=== PATIENT | male | born 1955 ===

== ENCOUNTER 2025-09-13 11:01 | Emergency (ER) | payer BC, SELFPAY ==
--- OUTSIDE RECORDS SUMMARY | 2016-04-08 | XMS_ITS | Encounter Summary ---
Author Organization [facility] Address [address] [facility] [address] [place] [address] Phone Care Team Providers Care Caltrans Equipment Operator Name Role Phone Je Ragsdale MD Primary Care Provider + Reason for Visit * MRI/CAT Scan - Closed Specialty Diagnoses / Procedures Referred By Briana jules Referred To Contact Radiology Procedures MRI Brain Outside (No Interpretation) Lauren Lea MD, PhD [address] [place] [address] Phone: tel: fax: mailto:[email or web address] Referral ID Status Reason Start Date Expiration Date Visits Re quested Visits Authorized [id number] Closed 04/08/2016 04/08/2017 1 1 Encounter Details Date Type Department Care Team (Late st Contact Info) Description 04/08/2016 Hospital Encounter [facility] [address] [place] [address] Lauren Lea MD, PhD [address] [place] [address] [email or web address] Social History Tobacco Use Types Packs/Day Years Used Date Smoking Tobacco: Never Smokeless Tobacco: Never Alcohol Use Standard Drinks/Week Comments No 0 (1 standard drink = 0.6 oz pur e alcohol) Child or Family Care Answer Date Record ed Do you have problems with on e of the following making it difficult for you to work, study, or receive health care? No 09/12/2025 Education Answer Date Recorded Are you interested in more education? Not on alexsandra e 04/17/2024 Are you concerned about learning? Not on file 04/17/2024 No 04/17/2024 No 04/17/2024 Food Answer Date Recorded Within the past 6 months we worried whether our food would run out before we got money to buy more. Never True 09/12/2025 Within the past 6 months the food we bought just didn't last and we didn't have enough money to get more. Never True Residential Stability Answer Date Recor ded What is your housing situation today? I have zuleyma ricardo 09/12/2025 How many times have you move d in the past 12 months? Zero (I did not move) 09/12/2025 Paying for Meds Answer Date Recorded Do you have trouble paying for medicines? No 09/12/2025 Paying Utility Bills Answer Date Record ed Do you have trouble paying your heating or elect ricity bill? No 09/12/2025 Transportation Answer Date Recorded Has the lack of transportati on kept you from medical appointments or from getting medications? No 09/12/2025 Unemployment Answer Date Recorded Are you currently unemployed or working on a part-time or temporary basis, and looking for work? No 04/15/2022 Digital Access Answer Date Recorded No 09/12/2025 Yes 09/12/2025 Do you have reliable internet access at home? Ye s 09/12/2025 Do you have a device (e.g., phone, tablet, computer) with a working camera? Yes 09/12/2025 Intimate Partner Violence Answer Date R ecorded Denied Basic Needs Not on file 09/12/2025 In the past 12 months have y ou been in a relationship with a person who hurts, threatens, or tries to control you? No 09/12/2025 Worried food would run out Not on file 09/12 In the past 12 months have y ou been in a relationship with a person who hurts, threatens, or tries to control you? 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 Not on file Not on file documented as of this encounter Plan of Treatment Upcoming Encounters Date Type Department Care Team (Late st Contact Info) Description 06/29/2025 Procedure Pass [address] [address] 06/29/2025 Procedure Pass [address] [address] 09/29/2025 3:15 PM EST Appointment [address] [address] Vinayak Reardon DO 30 [place] [address] [email or web address] 10/13/2025 1:30 PM EST Office Visit [facility], [facility] [place] [facility] [place] [address] [address] Lauren Lea MD, PhD [address] [place] [address] [email or web address] 09/14/2026 11:15 AM EDT Office Visit [facility] [address] [address] Richar Ellis MD 22 [facility] [address] [place], [place] [phone] [email or web address] documented as of this encounter Procedures Procedure Name Priority Date/Time Associated Diagnosis Comments MRI BRAIN OUTSIDE (NO INTERPRETATION) Routine 04/08/2016 12:00 AM EDT documented in this encounter Results * MRI Brain Outside (No Interpretation) (04/08/2016 12:00 AM EDT) Narrative [facility] IMG INTERFACES - 04/08/2016 3:14 PM EDT This study is for PACS storage only and not for interpretation. Procedure Note SYSTEMGENERATED, DOCUMENTATION - 04/08/2016 This study is for PACS storage only and not for interpretation. us Lauren Lea MD, PhD IMG OUTSIDE IMAGING W/O UT INTERPRETATION Final Result [facility] IMG INTERFACES documented in this encounter Visit Diagnoses Not on filedocumented in this encounter Care Teams Caltrans Equipment Operator Relationship Specialty Start Date End Date Je Ragsdale MD [address] [place] [address] [address] [place] [address] [email or web address] PCP - General 05/24/1409/27/20 documented as of this encounter Additional Source Comments The information contained in this document represents components of the legal health record. It is not the complete legal health record.[facility]
--- OUTSIDE RECORDS SUMMARY | 2016-04-08 00:15 | XMS_ITS | Encounter Summary ---
Author Organization [facility] Address [address] [facility] [address] [place] [address] Phone Care Team Providers Care Combination Welder Name Role Phone Je Ragsdale MD Primary Care Provider + Reason for Visit * MRI/CAT Scan - Closed Specialty Diagnoses / Procedures Referred By Briana jules Referred To Contact Radiology Procedures CT Chest Outside (No Interpretation) Lauren Lea MD, PhD [address] [place] [address] Phone: tel: fax: mailto:[email or web address] Referral ID Status Reason Start Date Expiration Date Visits Re quested Visits Authorized [id number] Closed 04/08/2016 04/08/2017 1 1 Encounter Details Date Type Department Care Team (Late st Contact Info) Description 04/08/2016 12:15 AM EDT Hospital Encounter [facility] [address] [place] [address] Lauren Lea MD, PhD [address] [place] [address] [email or web address] Social History Tobacco Use Types Packs/Day Years [...] your housing situation today? I have zuleyma sing 09/12/2025 How many times have you move [...] st Contact Info) Description 06/29/2025 Procedure Pass [address] [address] 06/29/2025 Procedure Pass [address] [address] 09/29/2025 3:15 PM EST Appointment [address] [address] Vinayak Reardon, 30 [place] [address] [email or web address] 10/13/2025 1:30 PM EST Office Visit [facility], [facility] [place] [facility] [place] [address] [address] Lauren Lea MD, PhD [address] [place] [address] [email or web address] 09/14/2026 11:15 AM EDT Office Visit [facility] Medical [address] [phone] Richar [place] MD 22 [facility] [address] [place], [place] [id number] [email or web address] documented as of this encounter Procedures Procedure Name Priority Date/Time Associated Diagnosis Comments CT CHEST OUTSIDE (NO INTERPRETATION) Routine 04/08/2016 12:15 AM EDT documented in this encounter Results * CT Chest Outside (No Interpretation) (04/08/2016 12:15 AM EDT) Narrative [facility] IMG INTERFACES - 04/08/2016 3:15 PM EDT This study is for PACS storage only and not for interpretation. Procedure Note SYSTEMGENERATED, DOCUMENTATION - 04/08/2016 This study is for PACS storage only and not for interpretation. us Lauren Lea MD, PhD IMG OUTSIDE IMAGING W/O UT INTERPRETATION Final Result [facility] IMG INTERFACES documented in this encounter Visit Diagnoses Not on filedocumented in this encounter Care Teams Combination Welder Relationship Specialty Start Date End Date Je Ragsdale MD [address] [place] [address] [address] [place] [address] [email or web address] state [email or web address] memorial hospital PCP - General 05/24/1409/27/20 documented as of this encounter Additional Source Comments The information contained in this document represents components of the legal health record. It is not the complete legal health record.[facility]
--- OUTSIDE RECORDS SUMMARY | 2016-08-02 | XMS_ITS | Encounter Summary ---
Author Organization [facility] Address [address] [facility] [address] [place] [address] Phone Care Team Providers Care Party Plan Salesperson Name Role Phone Je Ragsdale MD Primary Care Provider + Lauren Lea MD, PhD Unavailable [phone] Reason for Visit * MRI/CAT Scan - Closed Specialty Diagnoses / Procedures Referred By Contac t Referred To Contact Radiology Procedures MRI Brain Outside (No Interpretation) Lauren Lea MD, PhD [address] [place] [address] Phone: tel: fax: mailto:[email or web address] Referral ID Status Reason Start Date Expiration Date Visits Re quested Visits Authorized [id number] Closed 08/06/2016 08/06/2017 1 1 Encounter Details Date Type Department Care Team (Late st Contact Info) Description 08/02/2016 Hospital Encounter [facility] [address] [place] [address] Lauren Lea MD, PhD [address] [place] [address] Selena@[email or web address] Social History Tobacco Use Types Packs/Day [...] st Contact Info) Description 06/29/2025 Procedure Pass [address] [address] 06/29/2025 Procedure Pass [address] [address] 09/29/2025 3:15 PM EST Appointment [address] [address] Vinayak Reardon, 30 [place] [address] [email or web address] 10/13/2025 1:30 PM EST [facility], [facility] [place] [facility] [place] [address] [address] Lauren Lea MD, PhD [address] [place] [address] [place] [address] Selena@[email or web address] 09/14/2026 11:15 AM EDT Office Visit [facility] [address] [place] [address] Richar [place] MD 22 [facility] [address] [place] [address] [email or web address] documented as of this encounter Procedures Procedure Name Priority Date/Time Associated Diagnosis Comments MRI BRAIN OUTSIDE (NO INTERPRETATION) Routine 08/02/2016 12:00 AM EDT documented in this encounter Results * MRI Brain Outside (No Interpretation) (08/02/2016 12:00 AM EDT) Narrative [facility] IMG INTERFACES - 08/06/2016 3:00 PM EDT This study is for PACS storage only and not for interpretation. Procedure Note SYSTEMGENERATED, DOCUMENTATION - 08/06/2016 This study is for PACS storage only and not for interpretation. Lauren Lea MD, PhD IMG OUTSIDE IMAGING W/O UT INTERPRETATION Final Result [facility] IMG INTERFACES documented in this encounter Visit Diagnoses Not on filedocumented in this encounter Care Teams Party Plan Salesperson Relationship Specialty Start Date End Date Je Ragsdale MD [address] [place] [address] 2[address] [place] [address] [email or web address] PCP - General 05/24/1409/27/20 Lauren Lea MD, PhD [address] [place] [address] [place] [address] [email or web address] Primary Oncologist Medical Oncology 06/17/16 documented as of this encounter Additional Source Comments The information contained in this document represents components of the legal health record. It is not the complete legal health record.[facility]
--- OUTSIDE RECORDS SUMMARY | 2016-08-02 00:15 | XMS_ITS | Encounter Summary ---
Author Organization [facility] Address [address] [address] Phone Care Team Providers Care Concrete Pipe Maker Name Role Phone Je Ragsdale MD Primary Care Provider + Lauren Lea MD, PhD Unavailable [phone] Reason for Visit * MRI/CAT Scan - Closed Specialty Diagnoses / Procedures Referred By Contac t Referred To Contact Radiology Procedures CT Chest Outside (No Interpretation) Lauren Lea MD, PhD [address] [place] [address] Phone: tel: fax: mailto:[email or web address] Referral ID Status Reason Start Date Expiration Date Visits Re quested Visits Authorized [id number] Closed 08/06/2016 08/06/2017 1 1 Encounter Details Date Type Department Care Team (Late st Contact Info) Description 08/02/2016 12:15 AM EDT Hospital Encounter [facility] [address] [place] [address] Lauren Lea MD, PhD [address] [place] [address] Selena@[email or web address] Social History Tobacco Use Types Packs/Day Years [...] st Contact Info) Description 06/29/2025 Procedure Pass [address] [address] 06/29/2025 Procedure Pass [address] [address] 09/29/2025 3:15 PM EST Appointment [address] [address] Vinayak Reardon, 30 [place] [address] [email or web address] 10/13/2025 1:30 PM EST Office Visit [facility], [facility] [place] at [address] [address] Lauren Lea MD, PhD [address] [place] [address] [place] [address] Selena@[email or web address] 09/14/2026 11:15 AM EDT Office Visit [facility] Medical [address] [place] [address] Richar [place] MD 22 [facility] [address] [place] [address] documented as of this encounter Procedures Procedure Name Priority Date/Time Associated Diagnosis Comments CT CHEST OUTSIDE (NO INTERPRETATION) Routine 08/02/2016 12:15 AM EDT documented in this encounter Results * CT Chest Outside (No Interpretation) (08/02/2016 12:15 AM EDT) Narrative [facility] IMG INTERFACES - 08/06/2016 3:02 PM EDT This study is for PACS storage only and not for interpretation. Procedure Note SYSTEMGENERATED, DOCUMENTATION - 08/06/2016 This study is for PACS storage only and not for interpretation. us Lauren Lea MD, PhD IMG OUTSIDE IMAGING W/O UT INTERPRETATION Final Result Performing Organization Address City/State/[facility] Co de Phone Number [facility]G INTERFACES documented in this encounter Visit Diagnoses Not on filedocumented in this encounter Care Teams Concrete Pipe Maker Relationship Specialty Start Date End Date Je Ragsdale MD [address] [place] [address] 2[address] [place] [address] [email or web address] PCP - General 05/24/1409/27/20 Lauren eLa MD, PhD [address] [place] [address] [place] [address] [email or web address] Primary Oncologist Medical Oncology 06/17/16 documented as of this encounter Additional Source Comments The information contained in this document represents components of the legal health record. It is not the complete legal health record.[facility]
--- OUTSIDE RECORDS SUMMARY | 2016-11-29 01:30 | XMS_ITS | Encounter Summary ---
Author Organization [facility] Address [address] [facility] [address] [place] [address] Phone Care Team Providers Care Cathode Maker Name Role Phone Je Ragsdale MD Primary Care Provider + Lauren Lea MD, PhD Unavailable [phone] Reason for Visit * MRI/CAT Scan - Closed Specialty Diagnoses / Procedures Referred By Contac t Referred To Contact Procedures CT Chest Outside (No Interpretation) Lauren Lea MD, PhD [address] [place] [address] Phone: tel: fax: mailto:[email or web address] Referral ID Status Reason Start Date Expiration Date Visits Re quested Visits Authorized [id number] Closed 04/16/2017 04/16/2018 1 1 Encounter Details Date Type Department Care Team (Late st Contact Info) Description 11/29/2016 12:30 AM EST Hospital Encounter [facility] Imaging [address] [place] [address] Lauren Lea MD, PhD [address] [place] [address] [email or web address] Social History Tobacco Use Types Packs/Day Years [...] st Contact Info) Description 06/29/2025 Procedure Pass [address] [address] 06/29/2025 Procedure Pass [address] [address] 09/29/2025 3:15 PM EST Appointment [address] [address] Vinayak Reardon, 30 [place] [address] [email or web address] 10/13/2025 1:30 PM EST Office Visit [facility], [facility] Cancer [place] at [address] [address] Lauren Lea MD, PhD [address] [place] [address] [place] [address] Selena@[email or web address] 09/14/2026 11:15 AM EDT Office Visit [address] [place] [address] Richar [place] MD 22 [facility] [address] [place] [address] documented as of this encounter Procedures Procedure Name Priority Date/Time Associated Diagnosis Comments CT CHEST OUTSIDE (NO INTERPRETATION) Routine 11/29/2016 12:30 AM EST documented in this encounter Results * CT Chest Outside (No Interpretation) (11/29/2016 12:30 AM EST) Narrative [facility] IMG INTERFACES - 04/16/2017 11:01 AM EDT This study is for PACS storage only and not for interpretation. us Lauren Lea MD, PhD IMG OUTSIDE IMAGING W/O UT INTERPRETATION Final Result [facility] IMG INTERFACES documented in this encounter Visit Diagnoses Not on filedocumented in this encounter Care Teams Cathode Maker Relationship Specialty Start Date End Date Je Ragsdale MD [address] [place] [address] [address] [place] [address] [email or web address] PCP - General 05/24/1409/27/20 Lauren Lea MD, PhD [address] [place] [address] [address] Selena@[email or web address] Primary Oncologist Medical Oncology 06/17/16 documented as of this encounter Additional Source Comments The information contained in this document represents components of the legal health record. It is not the complete legal health record.[facility]
--- OUTSIDE RECORDS SUMMARY | 2016-11-29 01:45 | XMS_ITS | Encounter Summary ---
Author Organization [facility] Address [address] [facility] [address] [place] [address] Phone Care Team Providers Care Mud Tank Operator Name Role Phone Je Ragsdale MD Primary Care Provider + Lauren Lea MD, PhD Unavailable [phone] Reason for Visit * MRI/CAT Scan - Closed Specialty Diagnoses / Procedures Referred By Contac t Referred To Contact Procedures MRI Brain Outside (No Interpretation) Lauren Lea MD, PhD [address] [place] [address] Phone: tel: fax: mailto:[email or web address] Referral ID Status Reason Start Date Expiration Date Visits Re quested Visits Authorized [id number] Closed 04/16/2017 04/16/2018 1 1 Encounter Details Date Type Department Care Team (Late st Contact Info) Description 11/29/2016 12:45 AM EST Hospital Encounter [facility] Imaging [address] [place] [address] Lauren Lea MD, PhD [address] [place] [phone] [email or web address] Social History Tobacco Use Types [...] st Contact Info) Description 06/29/20[address] [address] 06/29/2025 Procedure Pass [address] [address] 09/29/2025 3:15 PM EST Appointment [address] [address] Vinayak Reardon, 30 [place] [address] [email or web address] 10/13/2025 1:30 PM EST Office Visit [facility], [facility] [place] [facility] [place] [address] [address] Lauren Lea MD, PhD [address] [place] [address] [place] [address] Selena@[email or web address] 09/14/2026 11:15 AM EDT Office Visit [address] [place] [address] Richar [place] MD 22 [facility] [address] [place] [address] documented as of this encounter Procedures Procedure Name Priority Date/Time Associated Diagnosis Comments MRI BRAIN OUTSIDE (NO INTERPRETATION) Routine 11/29/2016 12:45 AM EST documented in this encounter Results * MRI Brain Outside (No Interpretation) (11/29/2016 12:45 AM EST) Narrative [facility] IMG INTERFACES - 04/16/2017 11:03 AM EDT This study is for PACS storage only and not for interpretation. us Lauren Lea MD, PhD IMG OUTSIDE IMAGING W/O UT INTERPRETATION Final Result [facility] IMG INTERFACES documented in this encounter Visit Diagnoses Not on filedocumented in this encounter Care Teams Mud Tank Operator Relationship Specialty Start Date End Date Je Ragsdale MD [address] [place] [address] [address] [place] [address] [email or web address] PCP - General 05/24/1409/27/20 Lauren Lea MD, PhD [address] [place] [address] [address] [email or web address] Primary Oncologist Medical Oncology 06/17/16 documented as of this encounter Additional Source Comments The information contained in this document represents components of the legal health record. It is not the complete legal health record.[facility]
--- OUTSIDE RECORDS SUMMARY | 2025-09-12 11:30 | XMS_ITS | Encounter Summary ---
Author Organization [facility] Address [address] [place] [address] Phone Care Team Providers Care Fur Dry Cleaner Hand Name Role Phone Lauren Lea MD, PhD Unavailable [phone] Richar Ellis MD Primary Care Provider [phone] Vinayak Reardon DO Unavailable [phone] Richar Ellis MD Unavailable [phone] Reason for Visit * Reason Comments Annual Exam Physical exam Encounter Details Date Type Department Care Team (Late st Contact Info) Description 09/12/2025 11:30 AM EDT Office Visit [facility] [address] [place] [address] Richar Ellis MD [address] [facility], [address] [place] [address] [email or web address] Annual physical exam (Primary Dx); Colon cancer screening; Non-small cell lung cancer, unspecified laterality; Benign prostatic hyperplasia with nocturia; Bilateral leg edema; Loss of libido Social History Tobacco Use Types Packs/Day Years [...] on file documented as of this encounter Last Filed Vital Signs Vital Sign Reading Time Taken Comments Blood Pressure 108/50 09/12/2025 11:10 AM EDT Pulse 59 09/12/2025 11:10 AM EDT Temperature 36.1 C (97 F) 09/12/2025 11:10 AM EDT Respiratory Rate - - Oxygen Saturation 98% 09/12/2025 11: 10 AM EDT Inhaled Oxygen Concentration - - Weight 75.2 kg (165 lb 12.8 oz) 025 11:10 AM EDT Height 167.6 cm (5' 5.98 ) 09/12/2025 1 1:10 AM EDT Body Mass Index 26.77 09/12/2025 11:10 AM EDT documented in this encounter Progress Notes * Richar Ellis MD - 09/12/2025 11:30 AM EDT Chief Complaint: Annual Exam (Physical exam ) Subjective: Social History Social History Narrative Lives with Maye and 4 daughters - 35yo daughter, 18 yo and 12. 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 Grew up in [place] and [place]. He has done a lot of work with populations, spent time especially on the [facility]. Dtr got her PhD in computer science a t [employer]. research Never smoker No etoh Yearly physical, last visit with me in March for worsening prostatism, polyuria. Prescribed tamsulosin. Normal labs including PSA 0.87, A1c 4.8. History of metastatic lung cancer initially diagnosed 2015, right lobectomy, managed at [facility] Dr. Lea, and followed by Dr. Reardon, Imaging in June, brain MRI negative for mets Also history of hypertension, depression, lifelong anticoagulation due to previous pulm embolism. Labs in April, LDL 80, HDL 49, TG 97 Cologuard 2021, 3-year recall: Due now. I reviewed labs to the patient from [facility] without response Rusty Thapa, is a 70 y.o. male reports doing well. - reports a burning sensation L side of his pectoral area off/on for around 6 months, vlad after spicy meals. No exertional sx. No neck/arm pains. Hasn't tried antacids. 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 Re COLO, he has avoided scheduling to needing his alecenza bid. Will do cologuard. Exercise- elliptical and santos chi History of Present Illness VITALS: BP 108/50 (BP Location: Right arm, Patient Position: Sitting, Cuff Size: Medium) Pulse (!) 59 Temp 36.1 ??C (97 ??F) (Temporal) Ht 167.6 cm (5' 5.98 ) Wt 75.2 kg (165 lb 12.8 oz) SpO2 98% BMI 26.77 kg/m?? Alert cheerful, no acute distress Well-groomed, vital signs reviewed Cranial nerves symmetric, oropharynx clear and moist TM nl bilaterally Neck without lymphadenopathy, no jugular venous distention, no carotid bruits Cardiovascular regular rate and rhythm no murmurs rubs or gallops Lungs are clear to auscultation Abdomen is soft, nontender nondistended with positive bowel sounds. Liver and spleen not palpable. No masses : Normal penis, testes symmetric without masses, no inguinal hernia, no lymphadenopathy Extremities without cyanosis clubbing, UNCHANGED 2+ PITTING EDEMA no synovitis or joint deformities. Neurologic, cranial nerves symmetric, normal gait, strength symmetric. No diminished sensation. Skin, no rash, no jaundice, no concerning moles. Physical Exam Assessment/Plan: 1. Annual physical exam (Primary) Comments: flu today rec'd RSV vaccine Orders: - Influenza Vaccine (65yo up) High-Dose Trivalent Preservative Free IM - COLOGUARD (OrthoFi) 2. Colon cancer screening - COLOGUARD (OrthoFi) 3. Non-small cell lung cancer, unspecified laterality Overview: Initially diagnosed in 1995 at [facility], recurred in 2012 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 He was put on a research compassionate treatment with alectinib, now followed by Dr. Reardon. Doing remarkably well overall 4. Benign prostatic hyperplasia with nocturia Overview: Rx'd flomax, check PSA, A1c August 2025: sx well controlled on flomax 5. Bilateral leg edema Overview: Dt meds [Alectimib for lung ca] 6. Loss of libido Overview: Check testosterone Orders: - Testosterone, total and free Assessment & Plan Please consider using the newly developed race-neutral PREVENT score to determine CVD risk: https:// professional.heart.org/en/djgtnqburn-olt-jnpsxkavms/prevent-calculator The 10-year ASCVD risk score ([place] ISAACS, et al., 2019) is: 12.9% Values used to calculate the score: Age: 70 years Sex: Male Is Non- : No Diabetic: No Tobacco smoker: No Systolic Blood Pressure: 108 mmHg Is BP treated: No HDL Cholesterol: 49 mg/dL Total Cholesterol: 148 mg/dL No results found for any visits on 09/12/25. There are no Patient Instructions on file for this visit. Future Appointments Date Time Provider Department Center 09/29/2025 3:15 PM [facility] Main 10/13/2025 1:30 PM Lauren Lea MD, PhD DFTOP[facility] None Return in about 1 year (around 09/12/2026) for Annual physical. Richar Ellis MD 09/12/25. 11:48 AM Orders Placed This Encounter Procedures Influenza Vaccine (65yo up) High-Dose Trivalent Preservative Free IM COLOGUARD (OrthoFi) Testosterone, total and free Standing Status: Future Expected Date: 09/12/2025 Expiration Date: 09/12/2026 Patient expresses understanding and agrees with plan. All questions were answered satisfactorily. Patient agrees to call with questions or concerns should the need arise This dictation was prepared using [employer] senior trial attorney software. Answers submitted by the patient for this visit: From Your Doctor: Pre-visit Questions (Submitted on 09/12/2025) Unexpected weight change: No Changes in hearing: No Unexpected vision change: No Cough: No Shortness of breath: No Chest pain: Yes Palpitations: No Abdominal pain: No Blood in stool: No Constipation: No Diarrhea: No Problems with urination: No Erectile dysfunction: No Blood in urine: No Joint pain: No Persistent rash: No Dizziness: Yes Headaches: No Changes in memory: No documented in this encounter Plan of Treatment Upcoming Encounters Date Type Department Care Team (Late st Contact Info) Description 06/29/2025 Procedure Pass [facility] Ct Scan [address] [address] 06/29/2025 Procedure Pass [address] [address] 09/29/2025 3:15 PM EST Appointment [address] [address] Vinayak Reardon, [address] [place] [address] [email or web address] 10/13/2025 1:30 PM EST Office Visit [facility], [facility] [place] [facility] [place] [address] [address] Lauren Lea MD, PhD [address] [place] [address] [email or web address] 09/14/2026 11:15 AM EDT Office Visit [address] [address] Richar Ellis MD [address] [facility], [address] [place] [address] [email or web address] Scheduled Orders Name Type Priority Associated Diagnoses Orde r Schedule COLOGUARD ([employer]) Lab Routine Colon cancer screening Annual physical exam Ordered: 09/12/2025 Testosterone, total and free Lab Routine Loss of libido Expected: 09/12/2025, Expires: 09/12/2026 documented as of this encounter Visit Diagnoses Diagnosis Annual physical exam- Primary Routine general medical examination at a health care facility Colon cancer screening Special screening for malignant neoplasms, colon Non-small cell lung cancer, unspecified laterality Benign prostatic hyperplasia with nocturia Bilateral leg edema Edema Loss of libido Decreased libido documented in this encounter Additional Health Concerns Assessment Noted Time PHQ-9 Depression Total Score: 13 025 10:22 AM EDT PHQ-2 Depression Total Score: 3 09/12/20 25 10:22 AM EDT documented as of this encounter Care Teams Fur Dry Cleaner Hand Relationship Specialty Start Date End Date Richar Ellis MD [address] [place] [address], [address] [place] [address] [email or web address] PCP - General Internal Medicine 09/28/20 Lauren Lea MD, PhD [address] [place] [address] [email or web address] Primary Oncologist Medical Oncology 06/17/16 Vinayak Reardon DO [address] [place] [address] [email or web address] Primary Oncologist Hematology and Oncology 06/26/22 Richar Ellis MD [address] [place] [address], [address] [place] [address] [email or web address] Insurance Assigned Provider 02/28/24 documented as of this encounter Additional Source Comments The information contained in this document represents components of the legal health record. It is not the complete legal health record.[facility]
[2025-09-13] VITALS (7 sets, daily range): BP systolic 109–119; BP diastolic 47–76; PULSE 51–76; RESP 18; TEMP 36.6–36.7; O2SAT 97–99; BMI 24.5
--- NOTE | 2025-09-13 11:02 | ED_ITS ---
HPI - General Adult General Chief complaint: General Medical Stated complaint: LIGHTHEADED,FLU SHOT T-1,H/O STAGE 4 LUNG CA Time Seen by Provider: 09/13/25 11:01 Source: patient and EMS Mode of arrival: EMS Limitations: no limitations History of Present Illness ED Provider: Timothy Manriquez PA-C HPI narrative: 70 yo female with history of stage IV lung cancer with metastasis to the brain on oral chemo who presents to the ER via EMS for evaluation of a near syncope. 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 He states he got the influenza vaccine yesterday and started to fell unwell last night with chills and generalized weakness. This morning woke up feeling the same and went to work. He states he has had this reaction in the past after vaccinations and has history of vasovagal syncope and presyncope several times in the past. He states he will pass out if he does not put his head between his legs or lay down. Patient reports feeling improved now. He denies associated chest pain, SOB, vision changes, focal deficits, LOC, N/V/D or abdominal pain. HR 50s and SBP 110s for EMS which are his baseline per his report. MD complaint: near syncope Onset (ago): minute(s) Pain Consistency: now resolved Relieving factors: rest Associated symptoms: fever/chills, malaise and weakness Treatments prior to arrival: none Related Data Allergies Allergy/AdvReac Type Severity Reaction Status Date / Time cantaloupe Allergy Unknown Verified 09/13/25 11:18 watermelon Allergy Unknown Verified 09/13/25 11:18 Review of Systems 2 Review of Systems: Yes all other systems are reviewed and are negative [facility] Social History Social History Smoked in Last 30 Days: No Use of substances other than those prescribed or required for medical reasons: No Advance Directives: No Advance Directives Information Provided: Yes Do you have a plan to hurt others: No Plan Physical Exam ED Exam Exam: Appearance: Alert. Oriented X3. No acute distress. Head: normocephalic, atraumatic. Eyes: Pupils equal, round and reactive to light. ENT: Pharynx normal. No tonsillar swelling or exudate. Neck: Normal inspection. no JVD CVS: bradycardic, HR 50s, regular rhythm. Pulses normal. Respiratory: No respiratory distress. Breath sounds normal. Abdomen: Soft and nontender. +BS x4 Skin: Skin warm and dry. Normal skin color. Normal skin turgor. No rashes. Extremities: 1+ bilateral lower extremity edema, nonpitting. No joint swelling. Neuro/psych: Oriented X 3. No motor deficit. No sensory deficit. CN II-XII intact. Normal speech and cognition. Vital Signs: Vital Signs - 24 hr 09/13/25 11:12 09/13/25 11:58 09/13/25 11:59 Temperature 98.1 F Pulse Rate 53 51 54 Respiratory Rate 18 Blood Pressure 119/55 L 118/53 L 109/51 L Pulse Oximetry 99 Oxygen Delivery Method Room Air 09/13/25 12:00 Temperature Pulse Rate 55 Respiratory Rate Blood Pressure 110/47 L Pulse Oximetry Oxygen Delivery Method BMI result Body Mass Index 24.5 Medical Decision Making Medical Decision Making [facility] Narrative: 70 yo male with history of stage IV lung cancer with brain metastasis status post radiation and currently on oral chemotherapy who presents to the ER for evaluation of a presyncopal episode while at work today. Patient reports many episodes similar in nature, commonly occurs after getting vaccinations are when he is ill. He reports after getting the flu shot yesterday he is having some body aches and generalized weakness. No focality on exam. Physical exam is unremarkable. He is bradycardic which she reports is his baseline. Orthostatic vital signs here are negative. He is feeling back to normal. Labs show some anemia with hemoglobin of 9, mild thrombocytopenia with platelets in the 150s. No baseline to compare. He reports his blood counts were closely monitored by his oncologist. He is up ambulating around in the room and is feeling much better. At this time comfortable discharge home with outpatient follow-up. Return precautions were discussed and patient agrees with plan Differential Diagnosis Differential Diagnoses: The differential diagnosis associated with the presentation includes vasovagal response, orthostatic hypotension, dehydration, chemo side effect, anemia, cardiac arrhythmia, pe Admission/Observation Consideration of admission/observation: Escalation of care including admission/observation considered Lab Data [facility] Lab Attestation statement: I reviewed the patient's lab results. As above 09/13/25 11:46 09/13/25 11:46 Labs: Lab Results 09/13/25 Range/Units 11:46 WBC 4.8 (4.8-10.8) X10*3/uL RBC 2.97 L (4.60-5.80) X10*6/uL Hgb 9.1 L (14.0-18.0) g/dl Hct 27.1 L (42.0-52.0) % MCV 91.2 (80.0-98.0) fL MCH 30.6 (27.0-33.0) pg MCHC 33.6 (31.0-36.0) g/dl RDW 17.0 H (11.0-16.0) % Plt Count 150 L (160-400) X10*3/uL MPV 11.9 (9.4-12.4) fL Immature Gran % (Auto) 0.8 H (0.0-0.4) % Neut % (Auto) 79.0 H (45-73) % Lymph % (Auto) 9.1 L (20-40) % [place] % (Auto) 10.3 (2-11) % Eos % (Auto) 0.4 (0-4) % Baso % (Auto) 0.4 (0-2) % Lymph # (Auto) 0.4 L (1.2-4.9) X10*3/uL [place] # (Auto) 0.5 (0.1-1.2) X10*3/uL Eos # (Auto) 0.0 (0.0-0.4) X10*3/uL Baso # (Auto) 0.0 (0.0-0.2) X10*3/uL Abs Immat Gran (auto) 0.04 H (0.00-0.03) X10*3/uL Absolute Neuts (auto) 3.8 (2.0-8.3) x10*3/uL Absolute Nucleated RBC 0.000 (0.0-0.012) X10*3/uL Nucleated RBC % (auto) 0.0 (0.0-0.2) /100WBC Sodium 142 (135-145) mmol/L Potassium 3.7 (3.3-5.1) mmol/L Chloride 105 (96-108) mmol/L Carbon Dioxide 29 (22-29) mmol/L Anion Gap 12 (12-20) BUN 24 H (9-16) mg/dL Creatinine 1.27 (0.5-1.4) mg/dL Estim Creat Clear Calc 51.6 Estimated GFR 56 Random Glucose 87 (60-115) mg/dL Calcium 8.3 L (8.4-10.2) mg/dL Troponin I High Sens < 2.7 (<3.5-35.0) ng/L Independent Interpretation I performed an independent interpretation of an: EKG Interpretation: EKG with sinus bradycardia, ventricular rate 51 beats per minute, no ST segment elevations or depressions. IN interval is 200 Independent Historian Clinical information obtained from an independent historian. History obtained from or confirmed by: EMS Chronic Conditions Patient?s care impacted by: Other (Stage IV lung cancer) Critical Care Time Critical Care Time Critical Care Time: No Discharge Plan Discharge Clinical Impression: Near syncope Patient Disposition: Home, Self-Care Instructions: Near Syncope (ED) Additional Instructions: your workup today was reassuring. you have some anemia and thrombocytopenia (borderline low platelets) that should be monitored by your oncologist rest and drink plenty of fluids today follow up with your doctor If you develop new or worsening symptoms call 911 or come back to the ER for further evaluation. Referrals: Richar Ellis MD [Primary Care Provider, Medical] Stand Alone Forms: Work/School Release Print Language: Bengali
--- NOTE | 2025-09-13 11:18 | ECG_ITS ---
Test Reason : PRESYNCOPE Blood Pressure : */* mmHG Vent. Rate : 51 BPM Atrial Rate : 51 BPM P-R Int : 200 ms QRS Dur : 84 ms QT Int : 414 ms P-R-T Axes : 68 54 57 degrees QTcB Int : 381 ms Poor data quality, interpretation may be adversely affected Sinus bradycardia Otherwise normal ECG When compared with ECG of 18-Sep-2002 19:35, Nonspecific T wave abnormality no longer evident in Inferior leads Referred By: Deb Manriquez Electronically Signed By: TOMAS MENDES MD
[2025-09-13 11:58] LABS: MANUAL DIFF FLAG NO
[2025-09-13 12:14] LABS: Anion Gap 12 (12-20); Blood Urea Nitrogen 24 mg/dL (9-16); Calcium 8.3 mg/dL (8.4-10.2); Carbon Dioxide 29 mmol/L (22-29); Chloride 105 mmol/L (96-108); Creatinine Clr Calc Pharmacy 51.6; Estimated Glomerular Filt Rate 56; Potassium 3.7 mmol/L (3.3-5.1); Sodium 142 mmol/L (135-145)
[2025-09-13 12:15] LABS: Hematocrit 27.1 % (42.0-52.0); Hemoglobin 9.1 g/dl (14.0-18.0); Imm Gran Abs Auto 0.04 X10*3/uL (0.00-0.03); Imm Gran Pct Auto 0.8 % (0.0-0.4); Lymphocytes Absolute Auto 0.4 X10*3/uL (1.2-4.9); Mean Corpuscular HGB Conc 33.6 g/dl (31.0-36.0); Mean Corpuscular Hemoglobin 30.6 pg (27.0-33.0); Mean Corpuscular Volume 91.2 fL (80.0-98.0); NRBC Abs Auto 0.000 X10*3/uL (0.0-0.012); NRBC Pct Auto 0.0 /100WBC (0.0-0.2); Platelet Count 150 X10*3/uL (160-400); Red Blood Count 2.97 X10*6/uL (4.60-5.80); White Blood Count 4.8 X10*3/uL (4.8-10.8)
[2025-09-13 12:28] LABS: Troponin-I High Sensitivity < 2.7 ng/L (<3.5-35.0)
--- OUTSIDE RECORDS SUMMARY | 2025-09-13 15:43 | XMS_ITS | Encounter Summary ---
Author Organization [facility] Address [address] [place] [address] Phone Care Team Providers Care Rn Diabetes Educator Name Role Phone Lauren Lea MD, PhD Unavailable Richar Ellis MD Primary Care Provider Angela Price WARE TESTER Unavailable [phone] Richar Ellis MD Unavailable [phone] Vinayak Reardon DO Unavailable [phone] Richar Ellis MD Unavailable [phone] Encounter Details Date Type Department Care Team (Late st Contact Info) Description 02/09/2023 Procedure Pass [facility], Ct Scan - [address] [address] Social History Tobacco Use Types Packs/Day Years Used Date Smoking Tobacco: Never Smokeless Tobacco: Never Alcohol Use Standard Drinks/Week Comments No 0 (1 standard drink = 0.6 oz pur e alcohol) Child or Family Care Answer Date Record ed Do you have problems with on e of the following making it difficult for you to work, study, or receive health care? No 04/15/2022 Education Answer Date Recorded Are you interested in help w ith more adult education (for example, completing high school, GED, job training, learning the [place]ronesian language, technical skills, or developing parenting skills)? No 04/15/2022 Food Answer Date Recorded Within the past 6 months we worried whether our food would run out before we got money to buy more. Never True 04/15/2022 Within the past 6 months the food we bought just didn't last and we didn't have enough money to get more. Never True Residential Stability Answer Date Recor ded What is your housing situation today? I have zuleyma sing 04/15/2022 How many times have you move d in the past 12 months? Zero (I did not move) 04/15/2022 Paying for Meds Answer Date Recorded Do you have trouble paying for medicines? No 04/15/2022 Paying Utility Bills Answer Date Record ed Do you have trouble paying your heating or elect ricity bill? No 04/15/2022 Transportation Answer Date Recorded Has the lack of transportati on kept you from medical appointments or from getting medications? No 04/15/2022 Unemployment Answer Date Recorded Are you currently unemployed or working on a part-time or temporary basis, and looking for work? No 04/15/2022 Sex and Gender Information Value Date Recorded [...] st Contact Info) Description 06/29/2025 Procedure Pass [address] [address] 06/29/2025 Procedure Pass [address] [address] 09/29/2025 3:15 PM EST Appointment [address] [address] Vinayak Reardon, [address] [place] [address] [email or web address] 10/13/2025 1:30 PM EST Office Visit [facility], [facility] at [address] [place] [address] Lauren Lea MD, PhD [address] [place] [phone] [email or web address] 09/14/2026 11:15 AM EDT Office Visit [address] [place] [address] Richar Ellis MD [address] [place] [address], [address] [place] [address] [email or web address] documented as of this encounter Visit Diagnoses Not on filedocumented in this encounter Additional Health Concerns Assessment Noted Time PHQ-2 Depression Total Score: 0 04/15/20 22 1:05 PM EDT documented as of this encounter Care Teams Rn Diabetes Educator Relationship Specialty Start Date End Date Richar Ellis MD [address] [place] [address], [address] [place] [address] [email or web address] PCP - General Internal Medicine 09/28/20 Lauren Lea MD, PhD [address] [place] [address] [email or web address] Primary Oncologist Medical Oncology 06/17/16 Angela Price, WARE TESTER [address] [place] [address] [email or web address] Nurse Practitioner Medical Oncology 01/19/21 06/21/25 Richar Ellis MD [address] [place] [address], [address] [place] [address] [email or web address] Insurance Assigned Provider 12/01/21 08/30/23 Vinayak Reardon DO [address] [place] [address] [email or web address] Primary Oncologist Hematology and Oncology 06/26/22 Richar Ellis MD [address] [place] [address], [address] [place] [address] [email or web address] Insurance Assigned Provider 02/28/24 documented as of this encounter Additional Source Comments The information contained in this document represents components of the legal health record. It is not the complete legal health record.[facility]
--- OUTSIDE RECORDS SUMMARY | 2025-09-13 15:43 | XMS_ITS | Encounter Summary ---
Author Organization [facility] Address [address] [facility] [address] [place] [address] Phone Care Team Providers Care Shellfish Processing Laborer Name Role Phone Lauren Lea MD, PhD Unavailable [phone] Richar Ellis MD Primary Care Provider [phone] Angela Price GEOLOGY SCIENTIST Unavailable [phone] Richar Ellis MD Unavailable [phone] Vinayak Reardon DO Unavailable [phone] Richar Ellis MD Unavailable [phone] Encounter Details Date Type Department Care Team (Late st Contact Info) Description 06/19/2023 Procedure Pass [address] [place] [address] Social History Tobacco Use Types Packs/Day Years Used Date Smoking Tobacco: Never Smokeless Tobacco: Never Alcohol Use Standard Drinks/Week Comments No 0 (1 standard drink = 0.6 oz pur e alcohol) Child or Family Care Answer Date Record ed Do you have problems with on e of the following making it difficult for you to work, study, or receive health care? No 06/13/2023 Education Answer Date Recorded Are you interested in help w ith more adult education (for example, completing high school, GED, job training, learning the Nigerien language, technical skills, or developing parenting skills)? No 04/15/2022 Food Answer Date Recorded Within the past 6 months we worried whether our food would run out before we got money to buy more. Never True 06/13/2023 Within the past 6 months the food we bought just didn't last and we didn't have enough money to get more. Never True Residential Stability Answer Date Recor ded What is your housing situation today? I have zuleyma sing 06/13/2023 How many times have you move d in the past 12 months? Zero (I did not move) 06/13/2023 Paying for Meds Answer Date Recorded Do you have trouble paying for medicines? No 06/13/2023 Paying Utility Bills Answer Date Record ed Do you have trouble paying your heating or elect ricity bill? No 06/13/2023 Transportation Answer Date Recorded Has the lack of transportati on kept you from medical appointments or from getting medications? No 06/13/2023 Unemployment Answer Date Recorded Are you currently unemployed or working on a part-time or temporary basis, and looking for work? No 04/15/2022 Digital Access Answer Date Recorded No 06/13/2023 Yes 06/13/2023 Do you have reliable internet access at home? Ye s 06/13/2023 Do you have a device (e.g., phone, tablet, computer) with a working camera? Yes 06/13/2023 Intimate Partner Violence Answer Date R ecorded Denied Basic Needs Not on file 06/13/2023 In the past 12 months have y ou been in a relationship with a person who hurts, threatens, or tries to control you? No 06/13/2023 Worried food would run out Not on file 06/13 In the past 12 months have y ou been in a relationship with a person who hurts, threatens, or tries to control you? No 06/13/2023 Sex and Gender Information Value Date Recorded [...] st Contact Info) Description 06/29/2025 Procedure Pass [facility], Ct Scan - [address] [address] 06/29/2025 Procedure Pass [facility] Ct Scan [address] [address] 09/29/2025 3:15 PM EST Appointment [address] [address] Vinayak Reardon, [address] [place] [address] [email or web address] 10/13/2025 1:30 PM EST Office Visit [facility], [facility] [place] [facility] [place] [address] [address] Lauren Lea MD, PhD [address] [place] [address] [email or web address] 09/14/2026 11:15 AM EDT Office Visit [address] [address] Richar Ellis MD [address] [place] [address], [address] [place] [address] [email or web address] documented as of this encounter Visit Diagnoses Not on filedocumented in this encounter Additional Health Concerns Assessment Noted Time PHQ-9 Depression Total Score: 12 023 4:09 PM EDT PHQ-2 Depression Total Score: 3 06/13/20 23 4:09 PM EDT documented as of this encounter Care Teams Shellfish Processing Laborer Relationship Specialty Start Date End Date Richar Ellis MD [address] [place] [address], [address] [place] [address] [id number] PCP - General Internal Medicine 09/28/20 Lauren Lea MD, PhD [address] [place] [address] [email or web address] Primary Oncologist Medical Oncology 06/17/16 Angela Price, GEOLOGY SCIENTIST [address] [place] [address] [email or web address] Nurse Practitioner Medical Oncology 01/19/21 06/21/25 Richar Ellis MD [address] [place] [address] [email or web address] Insurance Assigned Provider 12/01/21 08/30/23 Vianyak Reardon DO [address] [place] [address] [email or web address] Primary Oncologist Hematology and Oncology 06/26/22 Richar Ellis MD [address] [place] [address], [address] [address] [email or web address] Insurance Assigned Provider 02/28/24 documented as of this encounter Additional Source Comments The information contained in this document represents components of the legal health record. It is not the complete legal health record.[facility]
--- OUTSIDE RECORDS SUMMARY | 2025-09-13 15:43 | XMS_ITS | Encounter Summary ---
Author Organization [facility] Address [address] [place] [address] Phone Care Team Providers Care Bandage Wrapping Machine Operator Name Role Phone Lauren Lea MD, PhD Unavailable [phone] Richar Ellis MD Primary Care Provider Angela Price SUPERINTENDENT COMMISSARY Unavailable [phone] Richar Ellis MD Unavailable [phone] Vinayak Reardon DO Unavailable [phone] Richar Ellis MD Unavailable [phone] Encounter Details Date Type Department Care Team (Late st Contact Info) Description 02/09/2023 Procedure Pass [facility], Ct Scan - [address] [address] Social History Tobacco Use Types Packs/Day Years [...] high school, GED, job training, learning the [place] Island[place] language, technical skills, or developing parenting skills)? [...] st Contact Info) Description 06/29/2025 Procedure Pass [address] [address] 06/29/2025 Procedure Pass [address] [address] 09/29/2025 3:15 PM EST Appointment [address] [address] Vinayak Reardon, [address] [place] [address] [email or web address] 10/13/2025 1:30 PM EST Office Visit [facility], [facility] [place] at [address] [place] [address] Lauren Lea MD, PhD [address] [place] [address] [email or web address] 09/14/2026 11:15 AM EDT Office Visit [address] [place] [address] Richar Ellis MD [address] [place] [address], [address] [place] [address] [email or web address] documented as of this encounter Visit Diagnoses Not on filedocumented in this encounter Additional Health Concerns Assessment Noted Time PHQ-2 Depression Total Score: 0 04/15/20 22 1:05 PM EDT documented as of this encounter Care Teams Bandage Wrapping Machine Operator Relationship Specialty Start Date End Date Richar Ellis MD [address] [place] [address], [address] [place] [address] [email or web address] PCP - General Internal Medicine 09/28/20 Lauren Lea MD, PhD [address] [place] [address] [email or web address] Primary Oncologist Medical Oncology 06/17/16 Angela Price, SUPERINTENDENT COMMISSARY [address] [place] [address] [email or web address] Nurse Practitioner Medical Oncology 01/19/21 06/21/25 Richar Ellis MD [address] [place] [address], [address] [place] [address] [email or web address] Insurance Assigned Provider 12/01/21 08/30/23 Vinayak Reardon DO [address] [place] [address] [email or web address] Primary Oncologist Hematology and Oncology 06/26/22 Richar Ellis MD [address] [place] [address], [address] [place] [address] [email or web address] Insurance Assigned Provider 02/28/24 documented as of this encounter Additional Source Comments The information contained in this document represents components of the legal health record. It is not the complete legal health record.[facility]
--- OUTSIDE RECORDS SUMMARY | 2025-09-13 15:43 | XMS_ITS | Encounter Summary ---
Author Organization [facility] Address [address] [facility] [address] [place] [address] Phone Care Team Providers Care Commercial Account Executive Name Role Phone Lauren Lea MD, PhD Unavailable [phone] AlexysVinayak mccormick DO Unavailable Richar Ellis MD Primary Care Provider Angela Price COMMODITY MANAGER Unavailable [phone] Je Ragsdale MD Unavailable Richar Ellis MD Unavailable [phone] AlexysVinayak mccormick DO Unavailable [phone] Richar Ellis MD Unavailable [phone] Encounter Details Date Type Department Care Team (Late st Contact Info) Description 08/24/2021 Procedure Pass [facility], [address] [address] Social History Tobacco Use Types Packs/Day Years Used Date Smoking Tobacco: Never Smokeless Tobacco: Never Alcohol Use Standard Drinks/Week Comments No 0 (1 standard drink = 0.6 oz pur e alcohol) Sex and Gender Information Value Date Recorded [...] st Contact Info) Description 06/29/2025 Procedure Pass [address] [address] 06/29/2025 Procedure Pass [address] [address] 09/29/2025 3:15 PM EST Appointment [address] [address] Vinayak Reardon, [address] [place] [address] [email or web address] 10/13/2025 1:30 PM EST Office Visit [facility], [facility] [place] [facility] [place] [address] [address] Lauren Lea MD, PhD [address] [place] [address] [email or web address] 09/14/2026 11:15 AM EDT Office Visit [address] [address] Richar Ellis MD [address] [place] [address], [address] [place] [address] documented as of this encounter Visit Diagnoses Not on filedocumented in this encounter Care Teams Commercial Account Executive Relationship Specialty Start Date End Date Richar Ellis MD [address] [place] [address], [address] [place] [address] PCP - General Internal Medicine 09/28/20 Lauren Lea MD, PhD [address] [place] [address] [email or web address] Primary Oncologist Medical Oncology 06/17/16 Vinayak Reardon DO [address] [place] [address] [email or web address] Primary Oncologist Hematology and Oncology 05/29/18 06/25/22 Angela Price, COMMODITY MANAGER [address] [place] [address] [email or web address] Nurse Practitioner Medical Oncology 01/19/21 06/21/25 Je Ragsdale MD [address] [place] [address] [place] [address] [email or web address] Insurance Assigned Provider 03/27/19 12/01/21 Richar Ellis MD [address] [place] [address], [address] [place] [address] [email or web address] Insurance Assigned Provider 12/01/21 08/30/23 Vinayak Reardon DO [address] [place] [address] [email or web address] Primary Oncologist Hematology and Oncology 06/26/22 Richar Ellis MD [address] [place] [address], [address] [place] [address] [email or web address] Insurance Assigned Provider 02/28/24 documented as of this encounter Additional Source Comments The information contained in this document represents components of the legal health record. It is not the complete legal health record.[facility]
--- OUTSIDE RECORDS SUMMARY | 2025-09-13 15:43 | XMS_ITS | Encounter Summary ---
Author Organization [facility] Address [address] [address] Phone Care Team Providers Care Newsperson Name Role Phone Je Ragsdale MD Primary Care Provider + Lauren Lea MD, PhD Unavailable [phone] Vinayak Reardon DO Unavailable Je Ragsdale MD Unavailable Richar Ellis MD Primary Care Provider Angela Price APRICOT WASHER Unavailable Je Ragsdale MD Unavailable Richar Ellis MD Unavailable [phone] Vinayak Reardon DO Unavailable [phone] Richar Ellis MD Unavailable [phone] Encounter Details Date Type Department Care Team (Late st Contact Info) Description 10/24/2017 Procedure Pass [facility], Ct Scan - [address] [address] Social History Tobacco Use Types Packs/Day Years Used Date Smoking Tobacco: Never Smokeless Tobacco: Never Sex and Gender Information Value Date Recorded [...] st Contact Info) Description 06/29/2025 Procedure Pass [address] [address] 06/29/2025 Procedure Pass [address] [address] 09/29/2025 3:15 PM EST Appointment [address] [address] Vinayak Reardon, [address] [place] [address] [email or web address] 10/13/2025 1:30 PM EST Office Visit [facility], [facility] [place] at [address] [address] Lauren Lea MD, PhD [address] [place] [phone] [email or web address] 09/14/2026 11:15 AM EDT Office Visit [facility] [address] [place] [address] [place] [address] Richar Ellis MD [address] [place] [address], [address] [place] [address] [email or web address] documented as of this encounter Visit Diagnoses Not on filedocumented in this encounter Care Teams Newsperson Relationship Specialty Start Date End Date Je Ragsdale MD [address] [place] [address] [place] [address] [email or web address] PCP - General 05/24/14 09/27/20 Richar Ellis MD [address] [place] [address], [address] [place] [address] [email or web address] PCP - General Internal Medicine 09/28/20 Lauren Lea MD, PhD [address] [place] [address] [email or web address] Primary Oncologist Medical Oncology 06/17/16 Vinayak Reardon DO [address] [place] [address] [email or web address] Primary Oncologist Hematology and Oncology 05/29/18 06/25/22 Je Ragsdale MD [address] [place] [address] [address] [place] [address] [email or web address] Insurance Assigned Provider 03/27/19 09/27/20 Angela Price, APRICOT WASHER [address] [place] [address] [email or web address] Nurse Practitioner Medical Oncology 01/19/21 06/21/25 Je Ragsdale MD [address] [place] [address] [place] [address] [email or web address] Insurance Assigned Provider 03/27/19 12/01/21 Richar Ellis MD [address] [place] [address], [address] [place] [address] [email or web address] Insurance Assigned Provider 12/01/21 08/30/23 Vinayak Reardon DO [address] [place] [address] [email or web address] Primary Oncologist Hematology and Oncology 06/26/22 Richar Ellis MD [address] [place] [address], [address] [place] [address] [email or web address] Insurance Assigned Provider 02/28/24 documented as of this encounter Additional Source Comments The information contained in this document represents components of the legal health record. It is not the complete legal health record.[facility]
--- OUTSIDE RECORDS SUMMARY | 2025-09-13 15:43 | XMS_ITS ---
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 appears to be enlarging compared to 3 years ago. However, this could be c/w bone island (and he has other bone islands noted on scans). The lesion is very small so probably would be below limits of detection of PET. Will continue to follow. Prior brain MRI had a tiny probable subacute microhemorrhage. Hayden has been taking therapeutic fondaparinux for 5 years, with no recurrent clotting. Given the brain MRI finding, the stability of his disease, and no recurrent thromboembolism, we decreased his dose of erna to prophylactic dosing 2.5 mg qd. Hayden has tolerated this well with no increase in edema or VALENTIN. ? Continue alectinib 600 mg bid Continue labs locally Brain met previously improved and now stable - changes were most consistent with post RT/treatment changes. Continue erna 2.5 mg qd Stable LE edema. Continue compression stockings. He will use lasix prn. Continue care locally - will see Dr. Reardon in between our visits Plan to followup at [facility] about every 5- 6 mos (after scans), or sooner if needed Knows to call with any questions or concerns. All questions answered and support provided. Assessment & Plan (05/20/2020 8:20 PM EDT): In summary, this is a kahlil 64 yo M with advanced ALK+ NSCLC, s/p crizotinib with PARTNER relapse, s/p WBRT, then with mild progression in the PARTNER, stable systemic disease. He started alectinib on a compassionate use protocol in June 2014. He has tolerated study drug well?. Overall, Hayden continues to feel well and is completely asymptomatic from the treated brain lesion. MRI brain had initially shown an enlarging brain lesion, but subsequent scans now show that this lesion has regressed, most c/w post treatment changes. I have reviewed the most recent scans which continue to show stable disease in the PARTNER and body, great news. Prior brain MRI had a tiny probable subacute microhemorrhage. Hayden has been taking therapeutic fondaparinux for 5 years, with no recurrent clotting. Given the brain MRI finding, the stability of his disease, and no recurrent thromboembolism, we decreased his dose of erna to prophylactic dosing 2.5 mg qd. Hayden has tolerated this well with no increase in edema or VALENTIN. ? Continue alectinib 600 mg bid Continue labs locally Brain met previously improved and now stable - changes were most consistent with post RT/treatment changes. Continue erna 2.5 mg qd Stable LE edema. Continue compression stockings. He will use lasix prn. Continue care locally - will see Dr. Reardon in 12 weeks. Plan to followup at [facility] about every 6 mos (after scans), or sooner if needed Knows to call with any questions or concerns. All questions answered and support provided. Assessment & Plan (11/09/2019 3:16 PM EST): In summary, this is a kahlil 63 yo M with advanced ALK+ NSCLC, s/p crizotinib with PARTNER relapse, s/p WBRT, then with mild progression in the PARTNER, stable systemic disease. He started alectinib on a compassionate use protocol in June 2014. He has tolerated study drug well?. Overall, Hayden continues to feel well and is completely asymptomatic from the treated brain lesion. MRI brain had initially shown an enlarging brain lesion, but subsequent scans now show that this lesion has regressed, most c/w post treatment changes. I have reviewed the most recent scans which continue to show stable disease in the PARTNER and body, great news. Prior brain MRI had a tiny probable subacute microhemorrhage. Hayden has been taking therapeutic fondaparinux for 5 years, with no recurrent clotting. Given the brain MRI finding, the stability of his disease, and no recurrent thromboembolism, we decreased his dose of erna to prophylactic dosing 2.5 mg qd. Hayden has tolerated this well with no increase in edema or VALENTIN. ? Continue alectinib 600 mg bid Continue labs locally Brain met previously improved and now stable - changes were most consistent with post RT/treatment changes. Continue erna 2.5 mg qd Stable LE edema. Continue compression stockings. He will use lasix prn. Continue care locally - will see Dr. Reardon in 8 weeks. Plan to followup at [facility] about every 16 weeks (after scans), or sooner if needed Knows to call with any questions or concerns. All questions answered and support provided. Assessment & Plan (09/07/2019 10:06 AM EDT): Well with chronic chemotherapy without any sign of new mets to the brain/gets regular his scans Assessment & Plan (07/10/2019 4:53 PM EDT): In summary, this is a kahlil 63 yo M with advanced ALK+ NSCLC, s/p crizotinib with PARTNER relapse, s/p WBRT, then with mild progression in the PARTNER, stable systemic disease. He started alectinib on a compassionate use protocol in June 2014. He has tolerated study drug well?. Overall, Hayden continues to feel well and is completely asymptomatic from the treated brain lesion. MRI brain had initially shown an enlarging brain lesion, but subsequent scans now show that this lesion has regressed, most c/w post treatment changes. Latest scans with stable disease in the PARTNER and body. Brain MRI with a tiny probable subacute microhemorrhage. Hayden has been taking therapeutic fondaparinux for 5 years, with no recurrent clotting. Given the brain MRI finding, the stability of his disease, and no recurrent thromboembolism, we discussed the possibility of reducing his dose of erna to prophylactic dosing 2.5 mg qd. Hayden will monitor for any new symptoms such as worsening LE edema or SOB. ? Continue alectinib 600 mg bid Continue labs locally - now available to me on EPIC Brain met previously improved and now stable - changes were most consistent with post RT/treatment changes. Decrease erna to 2.5 mg qd; new script sent to pharmacy Stable LE edema. Continue compression stockings. He will use lasix prn. Stable anemia. Baseline Hct prior to alectinib was high 30s, now low to mid 30s, likely related to alectinib. We also reviewed iron-rich foods as Hayden is a vegetarian Allergy symptoms - taking fiorella as needed Continue care locally - will see Dr. Reardon in 8 weeks. Chronic sleep issues - takes melatonin and ambien intermittently. Plan to followup at [facility] about every 16 weeks (after scans), or sooner if needed Knows to call with any questions or concerns. All questions answered and support provided. Assessment & Plan (03/14/2019 2:16 PM EDT): In summary, this is a kahlil 63 yo M with advanced ALK+ NSCLC, s/p crizotinib with PARTNER relapse, s/p WBRT, then with mild progression in the PARTNER, stable systemic disease. He started alectinib on a compassionate use protocol in June 2014. He has tolerated study drug well?. Overall, Hayden continues to feel well and is completely asymptomatic from the treated brain lesion. MRI brain had initially shown an enlarging brain lesion, but subsequent scans now show that this lesion has regressed, most c/w post treatment changes. Latest scans with stable disease in the PARTNER and body - great news! Given that he is feeling well, will continue on commercial alectinib. ? Continue alectinib 600 mg bid Continue labs locally - now available to me on EPIC Brain met previously improved and now stable - changes were most consistent with post RT/treatment changes. Stable LE edema. Continue compression stockings. He will use lasix prn. Stable anemia. Baseline Hct prior to alectinib was high 30s, now low 30s, likely related to alectinib. We also reviewed iron-rich foods as Hayden is a vegetarian Allergy symptoms - taking fiorella as needed Continue fondaparinux for h/o PEs; monitor for recurrent bldg Continue care locally - will see Dr. Reardon in 8 weeks. Chronic sleep issues - takes melatonin and ambien intermittently. Plan to followup at [facility] about every 16 weeks (after scans), or sooner if needed Knows to call with any questions or concerns. All questions answered and support provided. Assessment & Plan (11/09/2018 2:44 PM EST): In summary, this is a kahlil 63 yo M with advanced ALK+ NSCLC, s/p crizotinib with PARTNER relapse, s/p WBRT, then with mild progression in the PARTNER, stable systemic disease. He started alectinib on a compassionate use protocol in June 2014. He has tolerated study drug well?. Overall, Hayden continues to feel well and is completely asymptomatic from the treated brain lesion. MRI brain had shown an enlarging brain lesion, but subsequent scans now show that this lesion has regressed, most c/w post treatment changes. Latest scans which I personally reviewed with stable disease in the PARTNER and body - great news! Given that he is feeling well, will continue on commercial alectinib. ? Continue alectinib 600 mg bid Continue labs locally - now available to me on [facility] Brain met previously improved and now stable - changes were most consistent with post RT/treatment changes. Stable LE edema. Continue compression stockings. He will use lasix prn. Stable anemia. Baseline Hct prior to alectinib was high 30s, now low 30s, likely related to alectinib. We also reviewed iron-rich foods as Hayden is a vegetarian, although MCV is normal, so unlikely to be a significant component of Fe deficiency. Allergy symptoms - taking fiorella as needed Continue fondaparinux for h/o PEs; monitor for recurrent bldg Continue care locally - will see Dr. Reardon in 8 weeks. Chronic sleep issues - takes melatonin and ambien intermittently. Plan to followup at [facility] about every 16 weeks (after scans), or sooner if needed Knows to call with any questions or concerns. All questions answered and support provided. Assessment & Plan (07/24/2018 11:25 PM EDT): In summary, this is a kahlil 63 yo M with advanced ALK+ NSCLC, s/p crizotinib with PARTNER relapse, s/p WBRT, then with mild progression in the PARTNER, stable systemic disease. He started alectinib on a compassionate use protocol in June 2014. He has tolerated study drug well?. Overall, Hayden continues to feel well and is completely asymptomatic from the treated brain lesion. MRI brain had shown an enlarging brain lesion, but subsequent scans now show that this lesion has regressed, most c/w post treatment changes. Latest scans with stable disease in the PARTNER and body - great news! Given that he is feeling well, will continue on commercial alectinib. ? Continue alectinib 600 mg bid Continue labs locally - now available to me on EPIC Brain met previously improved and now stable - changes were most consistent with post RT/treatment changes. Stable LE edema. Continue compression stockings. He will use lasix prn. Allergy symptoms - taking fiorella as needed Resume fondaparinux for h/o PEs; monitor for recurrent bldg Continue care locally - will see Dr. Reardon in 8 weeks. Chronic sleep issues - takes melatonin and ambien intermittently. Plan to followup at [facility] about every 16 weeks (after scans), or sooner if needed Knows to call with any questions or concerns. All questions answered and support provided. Assessment & Plan (03/22/2018 10:31 PM EDT): In summary, this is a kahlil 62 yo M with advanced ALK+ NSCLC, s/p crizotinib with PARTNER relapse, s/p WBRT, then with mild progression in the PARTNER, stable systemic disease. He started alectinib on a compassionate use protocol in June 2014. He has tolerated study drug well?. Overall, Hayden continues to feel well and is completely asymptomatic from the treated brain lesion. MRI brain had shown an enlarging brain lesion, but subsequent scans now show that this lesion has regressed, most c/w post treatment changes. Latest scans with stable disease in the PARTNER and body - great news! Given that he is feeling well, will continue on commercial alectinib. ? Continue alectinib 600 mg bid Continue labs locally - now available to me on EPIC Brain met previously improved and now stable - changes were most consistent with post RT/treatment changes. Stable LE edema. Continue compression stockings. He will use lasix prn. Allergy symptoms - taking fiorella as needed Continue fondaparinux for h/o PEs. Continue care locally - will see Dr. Reardon in 8 weeks. Chronic sleep issues - takes melatonin and ambien intermittently. Plan to followup at [facility] about every 16 weeks (after scans), or sooner if needed Knows to call with any questions or concerns. All questions answered and support provided. Assessment & Plan (11/16/2017 11:47 PM EST): In summary, this is a kahlil 62 yo M with advanced ALK+ NSCLC, s/p crizotinib with PARTNER relapse, s/p WBRT, then with mild progression in the PARTNER, stable systemic disease. He started alectinib on a compassionate use protocol in June 2014. He has tolerated study drug well?. Overall, Hayden continues to feel well and is completely asymptomatic from the treated brain lesion. MRI brain had shown an enlarging brain lesion, but subsequent scans now show that this lesion has regressed, most c/w post treatment changes. Latest scans with stable disease in the PARTNER and body - great news! Given that he is feeling well, will continue on commercial alectinib. ? Continue alectinib 600 mg bid Reviewed latest scans Continue labs locally - now available to me Brain met previously improved and now stable - changes were most consistent with post RT/treatment changes. Stable LE edema. Continue compression stockings. He will use lasix prn. Allergy symptoms - taking fiorella as needed Continue fondaparinux for h/o PEs. Continue care locally - will see Dr. Reardon in 8 weeks. Chronic sleep issues - takes melatonin and ambien intermittently. Plan to followup at [facility] about every 16 weeks (after scans), or sooner if needed Knows to call with neuro symptoms, questions or concerns. All questions answered and support provided. Assessment & Plan (08/17/2017 9:59 PM EDT): In summary, this is a kahlil 62 yo M with advanced ALK+ NSCLC, s/p crizotinib with PARTNER relapse, s/p WBRT, then with mild progression in the PARTNER, stable systemic disease. He started alectinib on a compassionate use protocol in June 2014. He has tolerated study drug well?. Overall, Hayden continues to feel well and is completely asymptomatic from the treated brain lesion. MRI brain had shown an enlarging brain lesion, but subsequent scans now show that this lesion has regressed, most c/w post treatment changes. Latest scans with stable disease in the PARTNER and body - great news! Given that he is feeling well, will continue on commercial alectinib. ? Continue alectinib 600 mg bid Review latest scans; only reports available through Dr. Reardon Continue labs locally (these have not been available to me) Brain met previously improved and now stable - changes were most consistent with post RT/treatment changes. Stable LE edema. Continue compression stockings. He will use lasix prn. Allergy symptoms - taking fiorella as needed Continue fondaparinux for h/o PEs. Continue care locally - will see Dr. Reardon in 8 weeks. Chronic sleep issues - takes melatonin and ambien intermittently. Plan to followup at [facility] about every 16 weeks (after scans), or sooner if needed Knows to call with neuro symptoms, questions or concerns. All questions answered and support provided. Assessment & Plan (04/17/2017 2:51 PM EDT): In summary, this is a kahlil 61 yo M with advanced ALK+ NSCLC, currently on crizotinib, with PARTNER relapse, s/p WBRT, now with mild progression in the PARTNER, stable systemic disease. He started alectinib on a compassionate use protocol in June 2014. He has tolerated study drug well?. Overall, Hayden continues to feel well and is completely asymptomatic from the treated brain lesion. MRI brain had shown an enlarging brain lesion, but subsequent scans now show that this lesion has regressed, most c/w post treatment changes. Latest scans with stable disease in the PARTNER and body - great news! Given that he is feeling well, will continue on commercial alectinib. ? Continue alectinib Review latest scans; only reports available Review latest labs - not sent to me Brain met previously improved and now stable - changes were most consistent with post RT/treatment changes. Stable LE edema. Continue compression stockings. He will use lasix prn. Allergy symptoms - taking fiorella as needed Continue fondaparinux for h/o PEs. Continue care locally - will see Dr. Reardon in 8 weeks. Chronic sleep issues - takes melatonin and ambien intermittently. Plan to followup at [facility] about every 16 weeks (after scans), or sooner if needed Knows to call with neuro symptoms, questions or concerns. All questions answered and support provided. Assessment & Plan (12/14/2016 8:04 PM EST): In summary, this is a kahlil 61 yo M with advanced ALK+ NSCLC, currently on crizotinib, with PARTNER relapse, s/p WBRT, now with mild progression in the PARTNER, stable systemic disease. He started alectinib on a compassionate use protocol in June 2014. He has tolerated study drug well?. Overall, Hayden continues to feel well and is completely asymptomatic from the treated brain lesion. MRI brain had shown an enlarging brain lesion, but subsequent scans now show that this lesion has regressed, most c/w post treatment changes. Latest scans with stable disease in the PARTNER and body - great news! Given that he is feeling well, will continue on commercial alectinib. ? Continue alectinib Review latest scans; only reports available Brain met previously improved and now stable - changes were most consistent with post RT/treatment changes. Stable LE edema. Continue compression stockings. He will use lasix prn. Allergy symptoms - taking fiorella as needed Continue fondaparinux for h/o PEs. Continue care locally - will see Dr. Reardon in 8 weeks. Chronic sleep issues - takes melatonin and ambien intermittently. Plan to followup at [facility] about every 16 weeks (after scans), or sooner if needed Knows to call with neuro symptoms, questions or concerns. All questions answered and support provided. Assessment & Plan (08/15/2016 10:28 PM EDT): In summary, this is a kahlil 61 yo M with advanced ALK+ NSCLC, currently on crizotinib, with recent PARTNER relapse, s/p WBRT, now with mild progression in the PARTNER, stable systemic disease. He started alectinib on a compassionate use protocol in June 2014. He has tolerated study drug well?. Overall, Hayden continues to feel well and is completely asymptomatic from the treated brain lesion. MRI brain had shown an enlarging brain lesion, but subsequent scans now show that this lesion has regressed, most c/w post treatment changes. Last scans with ongoing stability; latest scans just received and need to be reviewed. Given that he is feeling well, will continue on commercial alectinib. ? Continue alectinib Review latest scans; no reports available Brain met has improved - changes were most consistent with post RT/treatment changes. Stable LE edema. Continue compression stockings. He will use lasix prn. Allergy symptoms - taking fiorella as needed Continue fondaparinux for h/o PEs. Continue care locally - will see Dr. Reardon in 8 weeks. Chronic sleep issues - takes melatonin and ambien intermittently. Plan to followup at [facility] about every 16 weeks (after scans), or sooner if needed Knows to call with neuro symptoms, questions or concerns. All questions answered and support provided. Assessment & Plan (04/11/2016 10:59 PM EDT): In summary, this is a kahlil 60 yo M with advanced ALK+ NSCLC, currently on crizotinib, with recent PARTNER relapse, s/p WBRT, now with mild progression in the PARTNER, stable systemic disease. He started alectinib on a compassionate use protocol in June 2014. He has tolerated study drug well?. Overall, Hayden continues to feel well and is completely asymptomatic from the treated brain lesion. MRI brain had shown an enlarging brain lesion, but subsequent scans now show that this lesion has regressed, most c/w post treatment changes. Latest scans from Apr 08 2016 with ongoing stability. Will continue on commercial alectinib. ? Continue alectinib Brain met has improved - changes were most consistent with post RT/treatment changes. Stable LE edema. Continue compression stockings. He will use lasix prn. Allergy symptoms - taking fiorella as needed Continue fondaparinux for h/o PEs. Continue care locally - will see Dr. Reardon in 8 weeks. Chronic sleep issues - takes melatonin and ambien intermittently. We reviewed good sleep habits. Plan to followup at [facility] about every 16 weeks (after scans), or sooner if needed Knows to call with neuro symptoms, questions or concerns. All questions answered and support provided. Secondary malignant neoplasm of brain 02/08/2015 Overview (10/31/2015): Metastatic malignant neoplasm to brain Hypertensive disorder 05/24/2014 Overview (01/14/2015): Hypertensive disorder Current Treatment and Therapy Plans [facility] ([facility] Plan Start Date:10/24/2017 Plan Provider:Vinayak Reardon DO Linked Problems Non-small cell lung cancer, unspecified laterality Treatment Medications No medications scheduled. Past Treatment and Therapy Plans No past plan information found. 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 He is presently well without any sign of depression but urged wgt reduction
--- OUTSIDE RECORDS SUMMARY | 2025-09-13 15:43 | XMS_ITS | Encounter Summary ---
Author Organization [facility] Address [address] [place] [address] Phone Care Team Providers Care Military Source Operations Specialist Name Role Phone Lauren Lea MD, PhD Unavailable [phone] Richar Ellis MD Primary Care Provider [phone] Angela Price GATE SERVICES SUPERVISOR Unavailable Vinayak Reardon DO Unavailable [phone] Richar Ellis MD Unavailable [phone] Encounter Details Date Type Department Care Team (Late st Contact Info) Description 12/03/2024 Procedure Pass [facility], Ct Scan - [address] [address] Social History Tobacco Use Types Packs/Day Years [...] housing situation today? I have zuleyma ricardo 06/13/2023 How many times have you move [...] st Contact Info) Description 06/29/2025 Procedure Pass [facility], Ct Scan - [address] [address] 06/29/2025 Procedure Pass [facility], Ct Scan [address] [address] 09/29/2025 3:15 PM EST Appointment [facility], [place] Scan [facility] [address] [place] [address] Vinayak Reardon, 30 [place] [address] [email or web address] [place] 10/13/2025 1:30 PM EST Office Visit [facility], [facility] [place] at [place] 300 [facility] 4th [place] [address] Lauren Lea MD, PhD [address] [place] [address] [email or web address]@[email or web address] 09/14/2026 11:15 AM EDT Office Visit [address] [address] Richar Ellis MD [address] [place] [address], [address] [address] [email or web address] documented as of this encounter Visit Diagnoses Not on filedocumented in this encounter Additional Health Concerns Assessment Noted Time PHQ-9 Depression Total Score: 12 023 4:09 PM EDT PHQ-2 Depression Total Score: 3 06/13/20 23 4:09 PM EDT documented as of this encounter Care Teams Military Source Operations Specialist Relationship Specialty Start Date End Date Richar Ellis MD [address] [place] [address], [address] [address] [email or web address] PCP - General Internal Medicine 09/28/20 Lauren Lea MD, PhD [address] [place] [address] Selena@[email or web address] Primary Oncologist Medical Oncology 06/17/16 Angela Price FNP [address] [place] [address] [email or web address] Nurse Practitioner Medical Oncology 01/19/21 06/21/25 Vinayak Reardon DO [address] [place] [address] [email or web address] Primary Oncologist Hematology and Oncology 06/26/22 Richar Ellis MD [address] [place] [address], [address] [place], [place] [id number] [email or web address] Insurance Assigned Provider 02/28/24 documented as of this encounter Additional Source Comments The information contained in this document represents components of the legal health record. It is not the complete legal health record.[facility]
--- OUTSIDE RECORDS SUMMARY | 2025-09-13 15:43 | XMS_ITS | Encounter Summary ---
Author Organization [facility] Address [address] [address] Phone Care Team Providers Care Mechanical Systems Designer Name Role Phone Je Ragsdale MD Primary Care Provider + Lauren Lea MD, PhD Unavailable [phone] Vinayak Reardon DO Unavailable Je Ragsdale MD Unavailable Richar Ellis MD Primary Care Provider Angela Price ROLLER MAN Unavailable Je Ragsdale MD Unavailable Richar Ellis MD Unavailable [phone] Vinayak Reardon DO Unavailable [phone] Richar Ellsi MD Unavailable [phone] Encounter Details Date Type Department Care Team (Late st Contact Info) Description 10/24/2017 Procedure Pass [facility], Ct Scan - [address] [address] Social History Tobacco Use Types Packs/Day Years [...] st Contact Info) Description 06/29/2025 Procedure Pass [address] [address] 06/29/2025 Procedure Pass [address] [address] 09/29/2025 3:15 PM EST Appointment [address] [address] Vinayak Reardon, 30 [place] [address] [email or web address] 10/13/2025 1:30 PM EST Office Visit [facility], [facility] [place] at [address] [address] Lauren Lea MD, PhD [address] [place] [address] [email or web address] 09/14/2026 11:15 AM EDT Office Visit [facility] Medicine [address] [place] [address] [place] [address] Richar Ellis MD [address] [place] [address], [address] [place] [address] [email or web address] documented as of this encounter Visit Diagnoses Not on filedocumented in this encounter Care Teams Mechanical Systems Designer Relationship Specialty Start Date End Date Je Ragsdale MD [address] [place] [address] [place] [address] [email or web address] PCP - General 05/24/14 09/27/20 Richar Ellis MD [address] [place] [address], [address] [place] [address] [email or web address] PCP - General Internal Medicine 09/28/20 Lauren Lea MD, PhD [address] [place] [address] [email or web address] Primary Oncologist Medical Oncology 06/17/16 Vinayak Reardon DO [address] [place] [address] [email or web address] Primary Oncologist Hematology and Oncology 05/29/18 06/25/22 Je Ragsdale MD [address] [place] [address] Dr [address]nd [place] [address] [email or web address] Insurance Assigned Provider 03/27/19 09/27/20 Angela Price, ROLLER MAN [address] [place] [address] [email or web address] Nurse Practitioner Medical Oncology 01/19/21 06/21/25 Je Ragsdale MD [address] [place] [address] [place] [address] [email or web address] Insurance Assigned Provider 03/27/19 12/01/21 Richar Ellis MD [address] [place] [address], [address] [place] [address] [email or web address] Insurance Assigned Provider 12/01/21 08/30/23 Vinayak Reardon DO [address] [place] [address] [email or web address] Primary Oncologist Hematology and Oncology 06/26/22 Richar Ellis MD [address] [place] [address], [address] [place] [address] [email or web address] Insurance Assigned Provider 02/28/24 documented as of this encounter Additional Source Comments The information contained in this document represents components of the legal health record. It is not the complete legal health record.[facility]
--- OUTSIDE RECORDS SUMMARY | 2025-09-13 15:43 | XMS_ITS | Encounter Summary ---
Author Organization [facility] Address [address] [address] Phone Care Team Providers Care Broke Beater Operator Name Role Phone Je Ragsdale MD Primary Care Provider + Lauren Lea MD, PhD Unavailable [phone] Vinayak Reardon DO Unavailable [phone] Je Ragsdale MD Unavailable Richar Ellis MD Primary Care Provider Angela Price RESEARCH PSYCHOLOGIST Unavailable [phone] Je Ragsdale MD Unavailable [phone] Richar Ellis MD Unavailable [phone] Vinayak Reardon DO Unavailable [phone] Richar Ellis MD Unavailable [phone] Encounter Details Date Type Department Care Team (Late st Contact Info) Description 10/24/2017 Procedure Pass [facility], [address] [address] Social History Tobacco Use Types Packs/Day Years [...] st Contact Info) Description 06/29/2025 Procedure Pass [address] [address] 06/29/2025 Procedure Pass [address] [address] 09/29/2025 3:15 PM EST Appointment [address] [address] Vinayak Reardon, 30 [place] [address] [email or web address] 10/13/2025 1:30 PM EST Office Visit [facility], [facility] [place] at [address] [address] Lauren Lea MD, PhD [address] [place] [address] [email or web address] 09/14/2026 11:15 AM EDT Office Visit [facility] Medicine [address] [place] [address] [place] [address] Richar Ellis MD [address] [place] [address], [address] [place] [address] [email or web address] documented as of this encounter Visit Diagnoses Not on filedocumented in this encounter Care Teams Broke Beater Operator Relationship Specialty Start Date End Date Je Ragsdale MD [address] [place] [address] [address] [address] [email or web address] PCP - General 05/24/14 09/27/20 Richar Ellis MD [address] [place] [address], [address] [place] [address] [email or web address] PCP - General Internal Medicine 09/28/20 Lauren Lea MD, PhD [address] [place] [address] [email or web address] Primary Oncologist Medical Oncology 06/17/16 Vinayak Reardon DO [address] [place] [address] [email or web address] Primary Oncologist Hematology and Oncology 05/29/18 06/25/22 Je Ragsdale MD [address] [place] [address] [place] [address] [email or web address] Insurance Assigned Provider 03/27/19 09/27/20 Angela Price FNP [address] [place] [address] [email or web address] Nurse Practitioner Medical Oncology 01/19/21 06/21/25 Je Ragsdale MD [address] [place] [address] [place] [address] [email or web address] Insurance Assigned Provider 03/27/19 12/01/21 Richar Ellis MD [address] [place] [address], [address] [place] [address] [email or web address] Insurance Assigned Provider 12/01/21 08/30/23 Vinayak Reardon DO [address] [place] [address] [email or web address] Primary Oncologist Hematology and Oncology 06/26/22 Richar Ellis MD [address] [place] [address], [address] [place] [address] [email or web address] Insurance Assigned Provider 02/28/24 documented as of this encounter Additional Source Comments The information contained in this document represents components of the legal health record. It is not the complete legal health record.[facility]
--- OUTSIDE RECORDS SUMMARY | 2025-09-13 15:45 | XMS_ITS | Encounter Summary ---
Author Organization [facility] Address 399 [facility] [address] [place] [address] Phone Care Team Providers Care Fiberglass Autobody Repairer Name Role Phone Lauren Lea MD, PhD Unavailable [phone] Vinayak Reardon DO Unavailable [phone] Richar Ellis MD Primary Care Provider [phone] Angela rPice FIBER MACHINE TENDER Unavailable Richar Ellis MD Unavailable [phone] Vinayak Reardon DO Unavailable [phone] Richar Ellis MD Unavailable [phone] Encounter Details Date Type Department Care Team (Late st Contact Info) Description 12/28/2021 Procedure Pass [facility], Ct Scan - [address] [address] Social History Tobacco Use Types Packs/Day Years [...] st Contact Info) Description 06/29/2025 Procedure Pass [address] [address] 06/29/2025 Procedure Pass [address] [address] 09/29/2025 3:15 PM EST Appointment [address] [address] Vinayak Reardon, 30 [place] [address] [email or web address] 10/13/2025 1:30 PM EST Office Visit [facility], [facility] [place] at [place] [address] [address] Lauren Lea MD, PhD [address] [place] [address] [email or web address] 09/14/2026 11:15 AM EDT Office Visit [address] [address] Richar Ellis MD [address] [place] [address], [address] [place] [address] documented as of this encounter Visit Diagnoses Not on filedocumented in this encounter Care Teams Fiberglass Autobody Repairer Relationship Specialty Start Date End Date Richar Ellis MD [address] [place] [address], [address] [place] [address] PCP - General Internal Medicine 09/28/20 Lauren Lea MD, PhD [address] [place] [address] [email or web address] Primary Oncologist Medical Oncology 06/17/16 Vinayak Reardon DO [address] [place] [address] [email or web address] Primary Oncologist Hematology and Oncology 05/29/18 06/25/22 Angela Price FNP [address] [place] [address] [email or web address] Nurse Practitioner Medical Oncology 01/19/21 06/21/25 Richar Ellis MD [address] [place] [address], [address] [address] [email or web address] Insurance Assigned Provider 12/01/21 08/30/23 Vinayak Reardon DO [address] [place] [address] [email or web address] Primary Oncologist Hematology and Oncology 06/26/22 Richar Ellis MD [address] [place] [address], [address] [address] Insurance Assigned Provider 02/28/24 documented as of this encounter Additional Source Comments The information contained in this document represents components of the legal health record. It is not the complete legal health record.[facility]
--- OUTSIDE RECORDS SUMMARY | 2025-09-13 15:45 | XMS_ITS | Encounter Summary ---
Author Organization [facility] Address 399 [facility] [address] [place] [address] Phone Care Team Providers Care Cloth Shrinking Machine Operator Helper Name Role Phone Je Ragsdale MD Primary Care Provider + Lauren Lea MD, PhD Unavailable [phone] Vinayak Reardon DO Unavailable [phone] Je Ragsdale MD Unavailable [phone] Richar Ellis MD Primary Care Provider Angela Price SUPERVISOR SPEECH Unavailable [phone] Je Ragsdale MD Unavailable [phone] Richar Ellis MD Unavailable [phone] Vinayak Reardon DO Unavailable [phone] Richar Ellis MD Unavailable [phone] Encounter Details Date Type Department Care Team (Late st Contact Info) Description 04/16/2017 Procedure Pass [facility] [address] [place] [address] Social History Tobacco Use Types Packs/Day Years [...] st Contact Info) Description 06/29/2025 Procedure Pass [address] [address] 06/29/2025 Procedure Pass [address] [address] 09/29/2025 3:15 PM EST Appointment [address] [address] Vinayak Reardon, 30 [place] [address] [email or web address] 10/13/2025 1:30 PM EST Office Visit [facility], [facility] [place] [facility] [place] [address] [address] Lauren Lea MD, PhD [address] [place] [address] [place] [address] [email or web address] 09/14/2026 11:15 AM EDT Office Visit [facility] Medicine [address] [place] [address] [place] [address] Richar Ellis MD [address] [place] [address], [address] [place] [address] [email or web address] documented as of this encounter Visit Diagnoses Not on filedocumented in this encounter Care Teams Cloth Shrinking Machine Operator Helper Relationship Specialty Start Date End Date Je Ragsdale MD [address] [place] [address] 2[address] [place] [address] [email or web address] PCP - General 05/24/14 09/27/20 Richar Ellis MD [address] [place] [address], [address] [place] [address] [email or web address] PCP - General Internal Medicine 09/28/20 Lauren Lea MD, PhD [address] [place] [address] [email or web address] Primary Oncologist Medical Oncology 06/17/16 Vinayak Reardon DO [address] [place] [address] [email or web address] Primary Oncologist Hematology and Oncology 05/29/18 06/25/22 Je Ragsdale MD [address] [place] [address] [place] [address] [email or web address] Insurance Assigned Provider 03/27/19 09/27/20 Angela Price FNP [address] [place] [address] [email or web address] Nurse Practitioner Medical Oncology 01/19/21 06/21/25 Je Ragsdale MD [address] [place] [address] [place] [address] [email or web address] Insurance Assigned Provider 03/27/19 12/01/21 Richar Ellis MD [address] [place] [address], [address] [place] [address] [email or web address] Insurance Assigned Provider 12/01/21 08/30/23 Vinayak Reardon DO [address] [place] [address] [email or web address] Primary Oncologist Hematology and Oncology 06/26/22 Richar Ellis MD [address] [place] [address], [address] [place] [address] [email or web address] Insurance Assigned Provider 02/28/24 documented as of this encounter Additional Source Comments The information contained in this document represents components of the legal health record. It is not the complete legal health record.[facility]
--- OUTSIDE RECORDS SUMMARY | 2025-09-13 15:45 | XMS_ITS | Encounter Summary ---
Author Organization [facility] Address [address] [address] Phone Care Team Providers Care Cigar Packer And Grader Name Role Phone Je Ragsdale MD Primary Care Provider + Lauren Lea MD, PhD Unavailable [phone] Vinayak Reardon DO Unavailable [phone] Je Ragsdale MD Unavailable Richar Ellis MD Primary Care Provider Angela Price FISHERIES BIOLOGIST Unavailable Je Ragsdale MD Unavailable Richar Ellis MD Unavailable [phone] Vinayak Reardon DO Unavailable [phone] Richar Ellis MD Unavailable [phone] Encounter Details Date Type Department Care Team (Late st Contact Info) Description 07/19/2020 Procedure Pass [facility], Ct Scan - [address] [address] Social History Tobacco Use Types Packs/Day Years [...] st Contact Info) Description 06/29/2025 Procedure Pass [address] [address] 06/29/2025 Procedure Pass [address] [address] 09/29/2025 3:15 PM EST Appointment [address] [address] Vinayak Reardon, 30 [place] [address] [email or web address] 10/13/2025 1:30 PM EST Office Visit [facility] for [facility] On[facility], [facility] [place] at [place] [address] [address] Lauren eLa MD, PhD [address] [place] [address] [email or web address] 09/14/2026 11:15 AM EDT Office Visit [facility] Medical [facility] Medicine [address] [place] [address] [place] [address] Richar Ellis MD [address] [place] [address], [address] [place] [address] [email or web address] documented as of this encounter Visit Diagnoses Not on filedocumented in this encounter Care Teams Cigar Packer And Grader Relationship Specialty Start Date End Date Je Ragsdale MD [address] [place] [address] 2[address] [place] [address] [email or web address] PCP - General 05/24/14 09/27/20 Richar Ellis MD [address] [place] [address], [address] [place] [address] [email or web address] PCP - General Internal Medicine 09/28/20 Lauren Lea MD, PhD [address] [place] [address] [email or web address] Primary Oncologist Medical Oncology 06/17/16 Vinayak Reardon DO [address] [place] [address] [email or web address] Primary Oncologist Hematology and Oncology 05/29/18 06/25/22 Je Ragsdale MD [address] [place] [address] [place] [address] [email or web address] Insurance Assigned Provider 03/27/19 09/27/20 Angela Price FNP [address] [place] [address] [email or web address] Nurse Practitioner Medical Oncology 01/19/21 06/21/25 Je Ragsdale MD [address] [place] [address] Dr [address] Zackary [facility] [place] [address] [email or web address] Insurance Assigned Provider 03/27/19 12/01/21 Richar Ellis MD [address] [place] [address], [address] [place] [address] [email or web address] Insurance Assigned Provider 12/01/21 08/30/23 Vinayak Reardon DO 30 [place] [address] [email or web address] Primary Oncologist Hematology and Oncology 06/26/22 Richar Ellis MD [address] [place] [address], [address] [place] [address] [email or web address] Insurance Assigned Provider 02/28/24 documented as of this encounter Additional Source Comments The information contained in this document represents components of the legal health record. It is not the complete legal health record.[facility]
--- OUTSIDE RECORDS SUMMARY | 2025-09-13 15:45 | XMS_ITS | Encounter Summary ---
Author Organization [facility] Address 399 [employer] [facility] [address] [place] [address] Phone Care Team Providers Care Science Professor Name Role Phone Lauren Lea MD, PhD Unavailable [phone] AlexysVinayak mccormick DO Unavailable [phone] Richar Ellis MD Primary Care Provider Angela Price ANIMAL CARE ASSISTANT Unavailable Je Ragsdale MD Unavailable [phone] Richar Ellis MD Unavailable [phone] Vinayak Reardon DO Unavailable [phone] Richar Ellis MD Unavailable [phone] Encounter Details Date Type Department Care Team (Late st Contact Info) Description 08/24/2021 Procedure Pass [facility], Ct Scan - [address] [address] Social History Tobacco Use Types Packs/Day Years [...] st Contact Info) Description 06/29/2025 Procedure Pass [address] [address] 06/29/2025 Procedure Pass [address] [address] 09/29/2025 3:15 PM EST Appointment [address] [address] Vinayak Reardon, [address] [place] [address] [email or web address] 10/13/2025 1:30 PM EST Office Visit [facility], [facility] [place] [facility] [place] [address] [address] Lauren Lea MD, PhD [address] [place] [address] [email or web address] 09/14/2026 11:15 AM EDT Office Visit [address] [address] Richar Ellis MD [address] [place] [address], [address] [address] documented as of this encounter Visit Diagnoses Not on filedocumented in this encounter Care Teams Science Professor Relationship Specialty Start Date End Date Richar Ellis MD [address] [place] [address], [address] [place] [address] PCP - General Internal Medicine 09/28/20 Lauren Lea MD, PhD [address] [place] [address] [email or web address] Primary Oncologist Medical Oncology 06/17/16 Vinayak Reardon DO [address] [place] [address] [email or web address] Primary Oncologist Hematology and Oncology 05/29/18 06/25/22 Angela Price FNP [address] [place] [address] [email or web address] Nurse Practitioner Medical Oncology 01/19/21 06/21/25 Je Ragsdale MD [address] [place] [address] [place] [address] [email or web address] Insurance Assigned Provider 03/27/19 12/01/21 Richar Ellis MD [address] [place] [address], [address] [place] [address] [email or web address] Insurance Assigned Provider 12/01/21 08/30/23 Vinayak Reardon DO [address] [place] [address] [email or web address] Primary Oncologist Hematology and Oncology 06/26/22 Richar Ellis MD [address] [place] [address], [address] [place] [address] [email or web address] Insurance Assigned Provider 02/28/24 documented as of this encounter Additional Source Comments The information contained in this document represents components of the legal health record. It is not the complete legal health record.[facility]
--- OUTSIDE RECORDS SUMMARY | 2025-09-13 15:45 | XMS_ITS | Encounter Summary ---
Author Organization [facility] Address [address] [address] Phone Care Team Providers Care Wheel Of Fortune Dealer Name Role Phone Je Ragsdale MD Primary Care Provider + Lauren Lea MD, PhD Unavailable [phone] Vinayak Reardon DO Unavailable [phone] Je Ragsdale MD Unavailable Richar Ellis MD Primary Care Provider [phone] Angela Price BRANCH BANKER Unavailable [phone] Je Ragsdale MD Unavailable Richar Ellis MD Unavailable [phone] Vinayak Reardon DO Unavailable [phone] Richar Ellis MD Unavailable [phone] Encounter Details Date Type Department Care Team (Late st Contact Info) Description 07/19/2020 Procedure Pass [facility], Ct Scan - [address] [address] Social History Tobacco Use Types Packs/Day Years [...] st Contact Info) Description 06/29/2025 Procedure Pass [address] [address] 06/29/2025 Procedure Pass [address] [address] 09/29/2025 3:15 PM EST Appointment [address] [address] Vinayak Reardon, [address] [place] [address] [email or web address] 10/13/2025 1:30 PM EST Office Visit [facility], [facility] [place] [facility] [place] [address] [address] Lauren Lea MD, PhD [address] [place] [address] [email or web address] 09/14/2026 11:15 AM EDT Office Visit [facility] Family Medicine [address] [place] [address] [place] [address] Richar Ellis MD [address] [place] [address], [address] [place] [address] [email or web address] documented as of this encounter Visit Diagnoses Not on filedocumented in this encounter Care Teams Wheel Of Fortune Dealer Relationship Specialty Start Date End Date Je Ragsdale MD [address] [place] [address] [address] [place] [address] [email or web address] [facility] PCP - General 05/24/14 09/27/20 Richar Ellis MD [address] [place] [address], [address] [place] [address] [email or web address] PCP - General Internal Medicine 09/28/20 Lauren Lea MD, PhD [address] [place] [address] [email or web address] Primary Oncologist Medical Oncology 06/17/16 Vinayak Reardon DO [address] [place] [address] [email or web address] Primary Oncologist Hematology and Oncology 05/29/18 06/25/22 Je Ragsdale MD [address] [place] [address] [place] [address] [email or web address] Insurance Assigned Provider 03/27/19 09/27/20 Angela Price FNP [address] [place] [address] [email or web address] Nurse Practitioner Medical Oncology 01/19/21 06/21/25 Je Ragsdale MD [address] [place] [address] Dr [address] Zackary [email or web address]][place] [address] [email or web address] Insurance Assigned Provider 03/27/19 12/01/21 Richar Ellis MD [address] [place] [address], [address] [place] [address] [email or web address] Insurance Assigned Provider 12/01/21 08/30/23 Vinayak Reardon DO [address] [place] [address] [email or web address] Primary Oncologist Hematology and Oncology 06/26/22 Richar Ellis MD [address] [place] [address], [address] [place] [address] [email or web address] Insurance Assigned Provider 02/28/24 documented as of this encounter Additional Source Comments The information contained in this document represents components of the legal health record. It is not the complete legal health record.[facility]
--- OUTSIDE RECORDS SUMMARY | 2025-09-13 15:45 | XMS_ITS | Encounter Summary ---
Author Organization [facility] Address 399 [employer] [facility] [address] [place] [address] Phone Care Team Providers Care Jig Boring Machine Operator For Metal Name Role Phone Lauren Lea MD, PhD Unavailable [phone] AlexysVinayak mccormick DO Unavailable [phone] Richar Ellis MD Primary Care Provider Angela Price PEDIATRIC ONCOLOGY NURSE Unavailable Je Ragsdale MD Unavailable Richar Ellis MD Unavailable [phone] Vinayak Reardon DO Unavailable Richar Ellis MD Unavailable [phone] Encounter Details Date Type Department Care Team (Late st Contact Info) Description 08/24/2021 Procedure Pass [facility], Ct Scan - [address] [address] Social History Tobacco Use Types Packs/Day Years [...] st Contact Info) Description 06/29/2025 Procedure Pass [address] [address] 06/29/2025 Procedure Pass [address] [address] 09/29/2025 3:15 PM EST Appointment [address] [address] Vinayak Reardon, [address] [place] [address] [email or web address] 10/13/2025 1:30 PM EST Office Visit [facility], [facility] [place] [facility] [address] [address] Lauren Lea MD, PhD [address] [place] [address] [email or web address] 09/14/2026 11:15 AM EDT Office Visit [address] [address] Richar Ellis MD [address] [place] [address], [address] [address] documented as of this encounter Visit Diagnoses Not on filedocumented in this encounter Care Teams Jig Boring Machine Operator For Metal Relationship Specialty Start Date End Date Richar Ellis MD [address] [place] [address], [address] [place] [address] PCP - General Internal Medicine 09/28/20 Lauren Lea MD, PhD [address] [place] [address] [email or web address] Primary Oncologist Medical Oncology 06/17/16 Vinayak Reardon DO [address] [place] [address] [email or web address] Primary Oncologist Hematology and Oncology 05/29/18 06/25/22 Angela Price FNP [address] [place] [address] [email or web address] Nurse Practitioner Medical Oncology 01/19/21 06/21/25 Je Ragsdale MD [address] [place] [address] [place] [address] [email or web address] Insurance Assigned Provider 03/27/19 12/01/21 Richar Ellis MD [address] [place] [address], [address] [place] [address] [email or web address] Insurance Assigned Provider 12/01/21 08/30/23 Vinayak Reardon DO [address] [place] [address] [email or web address] Primary Oncologist Hematology and Oncology 06/26/22 Richar Ellis MD [address] [place] [address], [address] [place] [address] [email or web address] Insurance Assigned Provider 02/28/24 documented as of this encounter Additional Source Comments The information contained in this document represents components of the legal health record. It is not the complete legal health record.[facility]
--- OUTSIDE RECORDS SUMMARY | 2025-09-13 15:45 | XMS_ITS | Encounter Summary ---
Author Organization [facility] Address 399 [facility] [address] [place] [address] Phone Care Team Providers Care Creative Writing Professor Name Role Phone Je Ragsdale MD Primary Care Provider + Lauren Lea MD, PhD Unavailable [phone] Vinayak Reardon DO Unavailable [phone] Je Ragsdale MD Unavailable Richar Ellis MD Primary Care Provider Angela Price INVESTMENT BANKING ANALYST Unavailable [phone] Je Ragsdale MD Unavailable Richar Ellis MD Unavailable [phone] Vinayak Reardon DO Unavailable [phone] Richar Ellis MD Unavailable [phone] Encounter Details Date Type Department Care Team (Late st Contact Info) Description 04/16/2017 Procedure Pass [facility] [address] [place] [address] Social History Tobacco Use Types Packs/Day Years [...] st Contact Info) Description 06/29/2025 Procedure Pass [address] [address] 06/29/2025 Procedure Pass [address] [address] 09/29/2025 3:15 PM EST Appointment [address] [address] Vinayak Reardon, [address] [place] [address] [email or web address] 10/13/2025 1:30 PM EST Office Visit [facility], [facility] [place] [facility] [place] [address] [address] Lauren Lea MD, PhD [address] [place] [address] [place] [address] [email or web address] 09/14/2026 11:15 AM EDT Office Visit [facility] Medicine [address] [place] [address] [place] [address] Richar Ellis MD [address] [place] [address], [address] [place] [address] [email or web address] documented as of this encounter Visit Diagnoses Not on filedocumented in this encounter Care Teams Creative Writing Professor Relationship Specialty Start Date End Date Je Ragsdale MD [address] [place] [address] 2[place] [address] [email or web address] PCP - General 05/24/14 09/27/20 Richar Ellis MD [address] [place] [address], [address] [place] [address] [email or web address] PCP - General Internal Medicine 09/28/20 Lauren Lea MD, PhD [address] [place] [address] [email or web address] Primary Oncologist Medical Oncology 06/17/16 Vinayak Reardon DO [address] [place] [address] [email or web address] Primary Oncologist Hematology and Oncology 05/29/18 06/25/22 Je Ragsdale MD [address] [place] [address] [place] [address] [email or web address] Insurance Assigned Provider 03/27/19 09/27/20 Angela Price FNP [address] [place] [address] [email or web address] Nurse Practitioner Medical Oncology 01/19/21 06/21/25 Je Ragsdale MD [address] [place] [address] [place] [address] [email or web address] Insurance Assigned Provider 03/27/19 12/01/21 Richar Ellis MD [address] [place] [address], [address] [place] [address] [email or web address] Insurance Assigned Provider 12/01/21 08/30/23 Vinayak Reardon DO [address] [place] [address] [email or web address] Primary Oncologist Hematology and Oncology 06/26/22 Richar Ellis MD [address] [place] [address], [address] [place] [address] [email or web address] Insurance Assigned Provider 02/28/24 documented as of this encounter Additional Source Comments The information contained in this document represents components of the legal health record. It is not the complete legal health record.[facility]
--- OUTSIDE RECORDS SUMMARY | 2025-09-13 15:45 | XMS_ITS | Encounter Summary ---
Author Organization [facility] Address 399 [facility] [address] [place] [address] Phone Care Team Providers Care Medical Apparatus Model Maker Name Role Phone Lauren Lea MD, PhD Unavailable Vinayak Reardon DO Unavailable Richar Ellis MD Primary Care Provider Angela Price EVENTS INTERN Unavailable [phone] Richar Ellis MD Unavailable [phone] Vinayak Reardon DO Unavailable Richar Ellis MD Unavailable [phone] Encounter Details Date Type Department Care Team (Late st Contact Info) Description 12/28/2021 Procedure Pass [facility], Ct Scan - [address] [address] Social History Tobacco Use Types Packs/Day Years [...] st Contact Info) Description 06/29/2025 Procedure Pass [address] [address] 06/29/2025 Procedure Pass [address] [address] 09/29/2025 3:15 PM EST Appointment [address] [address] Vinayak Reardon, [address] [place] [address] [email or web address] 10/13/2025 1:30 PM EST Office Visit [facility], [facility] [place] [facility] [place] [address] [address] Lauren Lea MD, PhD [address] [place] [address] [email or web address] 09/14/2026 11:15 AM EDT Office Visit [address] [address] Richar Ellis MD [address] [place] [address], [address] [place] [address] documented as of this encounter Visit Diagnoses Not on filedocumented in this encounter Care Teams Medical Apparatus Model Maker Relationship Specialty Start Date End Date Richar Ellis MD [address] [place] [address], [address] [place] [address] PCP - General Internal Medicine 09/28/20 Lauren Lea MD, PhD [address] [place] [address] [email or web address] Primary Oncologist Medical Oncology 06/17/16 Vinayak Reardon DO [address] [place] [address] [email or web address] Primary Oncologist Hematology and Oncology 05/29/18 06/25/22 Angela Price FNP [address] [place] [address] [email or web address] Nurse Practitioner Medical Oncology 01/19/21 06/21/25 Richar Ellis MD [address] [place] [address], [address] [address] [email or web address] Insurance Assigned Provider 12/01/21 08/30/23 Vinayak Reardon DO [address] [place] [address] [email or web address] Primary Oncologist Hematology and Oncology 06/26/22 Richar Ellis MD [address] [place] [address], [address] [address] Insurance Assigned Provider 02/28/24 documented as of this encounter Additional Source Comments The information contained in this document represents components of the legal health record. It is not the complete legal health record.[facility]
--- OUTSIDE RECORDS SUMMARY | 2025-09-13 15:45 | XMS_ITS | Encounter Summary ---
Author Organization [facility] Address 399 [facility] [address] [place] [address] Phone Care Team Providers Care Photography Colorist Name Role Phone Je Ragsdale MD Primary Care Provider + Lauren Lea MD, PhD Unavailable [phone] Vinayak Reardon DO Unavailable [phone] Je Ragsdale MD Unavailable [phone] Richar Ellis MD Primary Care Provider [phone] Angela Price SANDBLASTING SUPERVISOR Unavailable Je Ragsdale MD Unavailable Richar Ellis MD Unavailable [phone] Vinayak Reardon DO Unavailable [phone] Richar Ellis MD Unavailable [phone] Encounter Details Date Type Department Care Team (Late st Contact Info) Description 04/16/2017 Procedure Pass [facility] [address] [place] [address] Social History Tobacco Use Types Packs/Day Years Used Date Smoking Tobacco: Never Sex and Gender Information Value [...] st Contact Info) Description 06/29/2025 Procedure Pass [address] [address] 06/29/2025 Procedure Pass [address] [address] 09/29/2025 3:15 PM EST Appointment [address] [address] Vinayak Reardon, [address] [place] [address] [email or web address] 10/13/2025 1:30 PM EST Office Visit [facility], [facility] [place] [facility] [place] [address] [address] Lauren Lea MD, PhD [address] [place] [address] [email or web address] 09/14/2026 11:15 AM EDT Office Visit [address] [address] Richar Ellis MD [address] [place] [address], [address] [place] [address] [email or web address] documented as of this encounter Visit Diagnoses Not on filedocumented in this encounter Care Teams Photography Colorist Relationship Specialty Start Date End Date Je Ragsdale MD [address] [place] [address] 2[address] [place] [address] [email or web address] PCP - General 05/24/14 09/27/20 Richar Ellis MD [address] [place] [address], [address] [place] [address] [email or web address] PCP - General Internal Medicine 09/28/20 Lauren Lea MD, PhD [address] [place] [address] [email or web address] Primary Oncologist Medical Oncology 06/17/16 Vinayak Reardon DO [address] [place] [address] [email or web address] Primary Oncologist Hematology and Oncology 05/29/18 06/25/22 Je Ragsdale MD [address] [place] [address] [place] [address] [email or web address] [email or web address] Insurance Assigned Provider 03/27/19 09/27/20 Angela Price FNP [address] [place] [address] [email or web address] Nurse Practitioner Medical Oncology 01/19/21 06/21/25 Je Ragsdale MD [address] [place] [address] [place] [address] [email or web address] [facility] Insurance Assigned Provider 03/27/19 12/01/21 Richar Ellis MD [address] [place] [address], [address] [place] [address] [email or web address] Insurance Assigned Provider 12/01/21 08/30/23 Vinayak Reardon DO [address] [place] [address] [email or web address] Primary Oncologist Hematology and Oncology 06/26/22 Richar Ellis MD [address] [place] [address], [address] [place] [address] [email or web address] Insurance Assigned Provider 02/28/24 documented as of this encounter Additional Source Comments The information contained in this document represents components of the legal health record. It is not the complete legal health record.[facility]
--- OUTSIDE RECORDS SUMMARY | 2025-09-13 15:45 | XMS_ITS | Encounter Summary ---
Author Organization [facility] Address [address] [facility] [address] [place] [address] Phone Care Team Providers Care Master Esthetician Name Role Phone Je Ragsdale MD Primary Care Provider + Lauren Lea MD, PhD Unavailable [phone] Vinayak Reardon DO Unavailable Je Ragsdale MD Unavailable [phone] Richar Ellis MD Primary Care Provider Angela Price SPIRITS MODEL Unavailable Je Ragsdale MD Unavailable [phone] Richar Ellis MD Unavailable [phone] Vinayak Reardon DO Unavailable [phone] Richar Ellis MD Unavailable [phone] Encounter Details Date Type Department Care Team (Late st Contact Info) Description 08/18/2017 Procedure Pass [facility] [address] [place] [address] Social History Tobacco Use Types Packs/Day Years [...] Contact Info) Description 06/29/2025 Procedure [address] [address] 06/29/2025 Procedure Pass [address] [address] 09/29/2025 3:15 PM EST Appointment [address] [address] Vinayak Reardon, 30 [place] [address] [email or web address] 10/13/2025 1:30 PM EST Office Visit [facility] for [facility], [facility] [place] [facility] [place] [address] [address] Lauren Lea MD, PhD [address] [place] [address] [email or web address] 09/14/2026 11:15 AM EDT Office Visit [address] [address] Richar Ellis MD [address] [place] [address], [address] [place] [address] [email or web address] documented as of this encounter Visit Diagnoses Not on filedocumented in this encounter Care Teams Master Esthetician Relationship Specialty Start Date End Date Je Ragsdale MD [address] [place] [address] 2[address] [place] [address] [email or web address] PCP - General 05/24/14 09/27/20 Richar Ellis MD [address] [place] [address], [address] [place] [address] [email or web address]) PCP - General Internal Medicine 09/28/20 Lauren Lea MD, PhD [address] [place] [address] [email or web address] Primary Oncologist Medical Oncology 06/17/16 Vinayak Reardon DO [address] [place] [address] [email or web address] Primary Oncologist Hematology and Oncology 05/29/18 06/25/22 Je Ragsdale MD [address] [place] [address] [place] [address] [email or web address] Insurance Assigned Provider 03/27/19 09/27/20 Angela Price FNP [address] [place] [address] [email or web address]) Nurse Practitioner Medical Oncology 01/19/21 06/21/25 Je Ragsdale MD [address] [place] [address] [place] [address] [email or web address] Insurance Assigned Provider 03/27/19 12/01/21 Richar Ellis MD [address] [place] [address], [address] [place] [address] [email or web address] Insurance Assigned Provider 12/01/21 08/30/23 Vinayak Reardon DO [address] [place] [address] [email or web address] Primary Oncologist Hematology and Oncology 06/26/22 Richar Ellis MD [address] [place] [address], [address] [place] [address] [email or web address] Insurance Assigned Provider 02/28/24 documented as of this encounter Additional Source Comments The information contained in this document represents components of the legal health record. It is not the complete legal health record.[facility]
--- OUTSIDE RECORDS SUMMARY | 2025-09-13 15:45 | XMS_ITS | Encounter Summary ---
Author Organization [facility] Address [address] [facility] [address] [place] [address] Phone Care Team Providers Care Forest Ecology Professor Name Role Phone Je Ragsdale MD Primary Care Provider + Lauren Lea MD, PhD Unavailable [phone] Vinayak Reardon DO Unavailable Je Ragsdale MD Unavailable Richar Ellis MD Primary Care Provider Angela Price LOTTERIES AGENT Unavailable Je Ragsdale MD Unavailable [phone] Richar Ellis MD Unavailable [phone] Vinayak Reardon DO Unavailable [phone] Richar Ellis MD Unavailable [phone] Encounter Details Date Type Department Care Team (Late st Contact Info) Description 04/16/2017 Procedure Pass [facility] [address] [place] [address] Social History Tobacco Use Types Packs/Day Years [...] Contact Info) Description 06/29/2025 Procedure Pass [address] [address] 06/29/2025 Procedure Pass [address] [address] 09/29/2025 3:15 PM EST Appointment [address] [address] Vinayak Reardon, 30 [place] [address] [email or web address] 10/13/2025 1:30 PM EST Office Visit [facility] for Thoracic Oncology, [facility] [place] [facility] [place] [address] [address] Lauren Lea MD, PhD [address] [place] [address] [email or web address] 09/14/2026 11:15 AM EDT Office Visit [address] [address] Richar Ellis MD [address] [place] [address], [address] [place] [address] [email or web address] documented as of this encounter Visit Diagnoses Not on filedocumented in this encounter Care Teams Forest Ecology Professor Relationship Specialty Start Date End Date Je Ragsdale MD [address] [place] [address] 2[address] [place] [address] [email or web address] PCP - General 05/24/14 09/27/20 Richar Ellis MD [address] [place] [address], [address] [place] [address] [email or web address] PCP - General Internal Medicine 09/28/20 Lauren Lea MD, PhD [address] [place] [address] [email or web address] Primary Oncologist Medical Oncology 06/17/16 Vinayak Reardon DO [address] [place] [address] [email or web address] Primary Oncologist Hematology and Oncology 05/29/18 06/25/22 Je Ragsdale MD [address] [place] [address] [place] [address] [email or web address] Insurance Assigned Provider 03/27/19 09/27/20 Angela Price FNP [address] [place] [address] [email or web address] Nurse Practitioner Medical Oncology 01/19/21 06/21/25 Je Ragsdale MD [address] [place] [address] [place] [address] [email or web address] [facility] Insurance Assigned Provider 03/27/19 12/01/21 Richar Ellis MD [address] [place] [address], [address] [place] [address] [email or web address] Insurance Assigned Provider 12/01/21 08/30/23 Vinayak Reardon DO [address] [place] [address] [email or web address] Primary Oncologist Hematology and Oncology 06/26/22 Richar Ellis MD [address] [place] [address], [address] [place] [address] [email or web address] Insurance Assigned Provider 02/28/24 documented as of this encounter Additional Source Comments The information contained in this document represents components of the legal health record. It is not the complete legal health record.[facility]
--- OUTSIDE RECORDS SUMMARY | 2025-09-13 15:45 | XMS_ITS | Encounter Summary ---
Author Organization [facility] Address [address] [facility] [address] [place] [address] Phone Care Team Providers Care Glove Wrapper Name Role Phone Lauren Lea MD, PhD Unavailable [phone] Richar Ellis MD Primary Care Provider Angela Price TOOL/DIE MAKER Unavailable [phone] Richar Ellis MD Unavailable [phone] Vinayak Reardon DO Unavailable [phone] Richar Ellis MD Unavailable [phone] Encounter Details Date Type Department Care Team (Late st Contact Info) Description 05/05/2023 Procedure Pass [address] [place] [address] Social History Tobacco Use Types Packs/Day Years [...] high school, GED, job training, learning the [place]ic language, technical skills, or developing parenting skills)? [...] 04/15/2022 Digital Access Answer Date Recorded No 04/16/2023 No 04/16/2023 No 04/16/2023 Reliable internet access at home? Not on file 04/16/2023 Device with a working camera? Not on file Sex and Gender Information Value Date Recorded [...] st Contact Info) Description 06/29/2025 Procedure Pass [address] [address] 06/29/2025 Procedure Pass [address] [address] 09/29/2025 3:15 PM EST Appointment [address] [address] Vinayak Reardon, DO [address] [place] [address] [email or web address] 10/13/2025 1:30 PM EST Office Visit [facility] for [facility]acic On[facility], [facility] [place] [facility] [place] [address] [address] Lauren Lea MD, PhD [address] [place] [address] [email or web address] 09/14/2026 11:15 AM EDT Office Visit [address] [address] Richar Ellis MD [address] [place] [address], [address] [place] [address] [email or web address] documented as of this encounter Visit Diagnoses Not on filedocumented in this encounter Additional Health Concerns Assessment Noted Time PHQ-2 Depression Total Score: 0 04/15/20 22 1:05 PM EDT documented as of this encounter Care Teams Glove Wrapper Relationship Specialty Start Date End Date Richar Ellis MD [address] [place] [address], [address] [place] [address] [email or web address] PCP - General Internal Medicine 09/28/20 Lauren Lea MD, PhD [address] [place] [address] [email or web address] Primary Oncologist Medical Oncology 06/17/16 Angela Price, TOOL/DIE MAKER [address] [place] [address] [email or web address] Nurse Practitioner Medical Oncology 2/26/21 7/29/25 Richar Ellis MD [address] [place] [address], [address] [place] [address] [email or web address] Insurance Assigned Provider 12/01/21 08/30/23 Vinayak Reardon DO [address] [place] [address] [email or web address] Primary Oncologist Hematology and Oncology 06/26/22 Richar Ellis MD [address] [place] [address], [address] [place] [address] [email or web address] Insurance Assigned Provider 02/28/24 documented as of this encounter Additional Source Comments The information contained in this document represents components of the legal health record. It is not the complete legal health record.[facility]
--- OUTSIDE RECORDS SUMMARY | 2025-09-13 15:45 | XMS_ITS | Encounter Summary ---
Author Organization [facility] Address [address] [place] [address] Phone Care Team Providers Care Teacher Adventure Education Name Role Phone Lauren Lea MD, PhD Unavailable [phone] Richar Ellis MD Primary Care Provider Angela Price RECORDING CLERK Unavailable Vinayak Reardon DO Unavailable [phone] Richar Ellis MD Unavailable [phone] Encounter Details Date Type Department Care Team (Late st Contact Info) Description 07/15/2024 Procedure Pass [facility], [address] [place] [address] Social History Tobacco Use Types Packs/Day Years [...] st Contact Info) Description 06/29/2025 Procedure Pass [facility], Ct Scan - [address] [address] 06/29/2025 Procedure Pass [facility], Ct Scan [address] [address] 09/29/2025 3:15 PM EST Appointment [facility], [address] [address] Vinayak Reardon DO 30 [place] [address] [email or web address] 10/13/2025 1:30 PM EST Office Visit [facility], [facility] [place] [facility] [place] [address] [facility] 4th [place] [address] Lauren Lea MD, PhD [address] [place] [address] [email or web address] 09/14/2026 11:15 AM EDT Office Visit [address] [address] Richar Ellis MD [address] [place] [address] [email or web address] documented as of this encounter Visit Diagnoses Not on filedocumented in this encounter Additional Health Concerns Assessment Noted Time PHQ-9 Depression Total Score: 12 023 4:09 PM EDT PHQ-2 Depression Total Score: 3 06/13/20 23 4:09 PM EDT documented as of this encounter Care Teams Teacher Adventure Education Relationship Specialty Start Date End Date Richar Ellis MD [address] [place] [address] [email or web address] PCP - General Internal Medicine 09/28/20 Lauren Lea MD, PhD [address] [place] [address] [place] [address] [email or web address] Primary Oncologist Medical Oncology 06/17/16 Angela Price FNP [address] [place] [address] [email or web address] Nurse Practitioner Medical Oncology 01/19/21 06/21/25 Vinayak Reardon DO 30 [place] [address] [email or web address] Primary Oncologist Hematology and Oncology 06/26/22 Richar Ellis MD [address] [place] [address], [address] [place] [address] [email or web address] Insurance Assigned Provider 02/28/24 documented as of this encounter Additional Source Comments The information contained in this document represents components of the legal health record. It is not the complete legal health record.[facility]
--- OUTSIDE RECORDS SUMMARY | 2025-09-13 15:45 | XMS_ITS | Encounter Summary ---
Author Organization [facility] Address [address] [facility] [address] [place] [address] Phone Care Team Providers Care Electroslag Welding Machine Operator Name Role Phone Je Ragsdale MD Primary Care Provider + Lauren Lea MD, PhD Unavailable [phone] Vinayak Reardon DO Unavailable Je Ragsdale MD Unavailable Richar Ellis MD Primary Care Provider Angela Price TRUCK DRIVER TEAMSTER Unavailable Je Ragsdale MD Unavailable Richar Ellis MD Unavailable [phone] Vinayak Reardon DO Unavailable [phone] Richar Ellis MD Unavailable [phone] Encounter Details Date Type Department Care Team (Late st Contact Info) Description 08/18/2017 Procedure Pass [facility] [address] [place] [address] Social History Tobacco Use Types Packs/Day Years [...] st Contact Info) Description 06/29/2025 Procedure Pass [address] [address] 06/29/2025 Procedure Pass [address] [address] 09/29/2025 3:15 PM EST Appointment [address] [address] Vinayak Reardon, 30 [place] [address] [email or web address] 10/13/2025 1:30 PM EST Office Visit [facility] for [facility], [facility] [place] [facility] [place] [address] [address] Lauren Lea MD, PhD [address] [place] [address] [email or web address] 09/14/2026 11:15 AM EDT Office Visit [address] [address] Richar Ellis MD [address] [place] [address], [address] [place] [address] [email or web address] documented as of this encounter Visit Diagnoses Not on filedocumented in this encounter Care Teams Electroslag Welding Machine Operator Relationship Specialty Start Date End Date Je Ragsdale MD [address] [place] [address] 2nd [place] [address] [email or web address] PCP - General 05/24/14 09/27/20 Richar Ellis MD [address] [place] [address], [address] [place] [address] [email or web address] PCP - General Internal Medicine 09/28/20 Lauren Lea MD, PhD [address] [place] [address] [email or web address] Primary Oncologist Medical Oncology 06/17/16 Vinayak Reardon DO [address] [place] [address] [email or web address] Primary Oncologist Hematology and Oncology 05/29/18 06/25/22 Je Ragsdale MD [address] [place] [address] [place] [address] [email or web address] [facility] Insurance Assigned Provider 03/27/19 09/27/20 Angela Price FNP [address] [place] [address] [email or web address] Nurse Practitioner Medical Oncology 01/19/21 06/21/25 Je Ragsdale MD [address] [place] [address] [place] [address] [email or web address] [facility] Insurance Assigned Provider 03/27/19 12/01/21 Richar Ellis MD [address] [place] [address], [address] [place] [address] [email or web address] Insurance Assigned Provider 12/01/21 08/30/23 Vinayak Reardon DO [address] [place] [address] [email or web address] Primary Oncologist Hematology and Oncology 06/26/22 Richar Ellis MD [address] [place] [address], [address] [place] [address] [email or web address] Insurance Assigned Provider 02/28/24 documented as of this encounter Additional Source Comments The information contained in this document represents components of the legal health record. It is not the complete legal health record.[facility]
--- OUTSIDE RECORDS SUMMARY | 2025-09-13 15:45 | XMS_ITS | Encounter Summary ---
Author Organization [facility] Address [address] [facility] [address] [place] [address] Phone Care Team Providers Care Stop Attacher Name Role Phone Lauren Lea MD, PhD Unavailable [phone] Vinayak Reardon DO Unavailable [phone] Richar Ellis MD Primary Care Provider Angela Price CHANNEL MANAGER Unavailable Richar Ellis MD Unavailable [phone] Vinayak Reardon DO Unavailable [phone] Richar Ellis MD Unavailable [phone] Encounter Details Date Type Department Care Team (Late st Contact Info) Description 12/28/2021 Procedure Pass [facility], [address] [address] Social History Tobacco Use Types Packs/Day Years [...] st Contact Info) Description 06/29/2025 Procedure Pass [address] [address] 06/29/2025 Procedure Pass [address] [address] 09/29/2025 3:15 PM EST Appointment [address] [address] Vinayak Reardon, 30 [place] [address] [email or web address] 10/13/2025 1:30 PM EST Office Visit [facility] for [facility], [facility] [place] [facility] [place] [address] [address] Lauren Lea MD, PhD [address] [place] [address] [email or web address] 09/14/2026 11:15 AM EDT Office Visit [address] [address] Richar Ellis MD [address] [place] [address], [address] [place] [address] documented as of this encounter Visit Diagnoses Not on filedocumented in this encounter Care Teams Stop Attacher Relationship Specialty Start Date End Date Richar Ellis MD [address] [place] [address], [address] [place] [address] PCP - General Internal Medicine 09/28/20 Lauren Lea MD, PhD [address] [place] [address] [email or web address] Primary Oncologist Medical Oncology 06/17/16 Vinayak Reardon DO [address] [place] [address] [email or web address] Primary Oncologist Hematology and Oncology 05/29/18 06/25/22 Angela Price, CHANNEL MANAGER [address] [place] [address] [email or web address] Nurse Practitioner Medical Oncology 01/19/21 06/21/25 Richar Ellis MD [address] [place] [address], [address] [address] [email or web address] Insurance Assigned Provider 12/01/21 08/30/23 Vinayak Reardon DO [address] [place] [address] [email or web address] Primary Oncologist Hematology and Oncology 06/26/22 Richar Ellis MD [address] [place] [address], [address] [address] [email or web address] Insurance Assigned Provider 02/28/24 documented as of this encounter Additional Source Comments The information contained in this document represents components of the legal health record. It is not the complete legal health record.[facility]
--- OUTSIDE RECORDS SUMMARY | 2025-09-13 15:46 | XMS_ITS | Encounter Summary ---
Author Organization [facility] Address [address] [address] Phone Care Team Providers Care Wic Site Coordinator Name Role Phone Je Ragsdale MD Primary Care Provider + Lauren Lea MD, PhD Unavailable [phone] Vinayak Reardon DO Unavailable Je Ragsdale MD Unavailable [phone] Richar Ellis MD Primary Care Provider Angela Price COMPOSITION TEACHER Unavailable Je Ragsdale MD Unavailable Richar Ellis MD Unavailable [phone] Vinayak Reardon DO Unavailable [phone] Richar Ellis MD Unavailable [phone] Encounter Details Date Type Department Care Team (Late st Contact Info) Description 04/26/2020 Procedure Pass [facility], Ct Scan - [address] [address] Social History Tobacco Use Types Packs/Day Years [...] st Contact Info) Description 06/29/2025 Procedure Pass [address] [address] 06/29/2025 Procedure Pass [address] [address] 09/29/2025 3:15 PM EST Appointment [address] [address] Vinayak Reardon, 30 [place] [address] [email or web address] 10/13/2025 1:30 PM EST Office Visit [facility] for [facility], [facility] [place] [facility] [place] [address] [address] Lauren Lea MD, PhD [address] [place] [address] [email or web address] 09/14/2026 11:15 AM EDT Office Visit [facility] Family Medicine [address] [place] [address] [place] [address] Richar Ellis MD [address] [place] [address], [address] [place] [address] [email or web address] documented as of this encounter Visit Diagnoses Not on filedocumented in this encounter Care Teams Wic Site Coordinator Relationship Specialty Start Date End Date Je Ragsdale MD [address] [place] [address] 2[place] [address] [email or web address] PCP - General 05/24/14 09/27/20 Richar Ellis MD [address] [place] [address], [address] [place] [address] [email or web address] PCP - General Internal Medicine 09/28/20 Lauren Lea MD, PhD [address] [place] [address] [email or web address] Primary Oncologist Medical Oncology 06/17/16 Vinayak Reardon DO [address] [place] [address] [email or web address] Primary Oncologist Hematology and Oncology 05/29/18 06/25/22 Je Ragsdale MD [address] [place] [address] [place] [address] [email or web address] Insurance Assigned Provider 03/27/19 09/27/20 Angela Price FNP [address] [place] [address] [email or web address] Nurse Practitioner Medical Oncology 01/19/21 06/21/25 Je Ragsdale MD [address] [place] [address] Dr 2nd Zackary [facility] [place] [address] [email or web address] Insurance Assigned Provider 03/27/19 12/01/21 Richar Ellis MD [address] [place] [address], [address] [place] [address] [email or web address] Insurance Assigned Provider 12/01/21 08/30/23 Vinayak Reardon DO 30 [place] [address] [email or web address] Primary Oncologist Hematology and Oncology 06/26/22 Rcihar Ellis MD [address] [place] [address], [address] [place] [address] [email or web address] Insurance Assigned Provider 02/28/24 documented as of this encounter Additional Source Comments The information contained in this document represents components of the legal health record. It is not the complete legal health record.[facility]
--- OUTSIDE RECORDS SUMMARY | 2025-09-13 15:46 | XMS_ITS | Encounter Summary ---
Author Organization [facility] Address [address] [place] [address] Phone Care Team Providers Care It Support Technician Name Role Phone Lauren Lea MD, PhD Unavailable Richar Ellis MD Primary Care Provider Angela Price COLLISION WORKER Unavailable [phone] Richar Ellis MD Unavailable [phone] Vinayak Reardon DO Unavailable [phone] Richar Ellis MD Unavailable [phone] Encounter Details Date Type Department Care Team (Late st Contact Info) Description 06/27/2022 Procedure Pass [facility], Ct Scan - [address] [address] Social History Tobacco Use Types Packs/Day Years [...] high school, GED, job training, learning the Singaporean language, technical skills, or developing parenting skills)? [...] st Contact Info) Description 06/29/2025 Procedure Pass [address] [address] 06/29/2025 Procedure Pass [address] [address] 09/29/2025 3:15 PM EST Appointment [address] [address] Vinayak Reardon, 30 [place] [address] [email or web address] .[email or web address] 10/13/2025 1:30 PM EST Office [facility] Center for Thoracic Oncology, [facility] [place] at [address] [place] [address] Lauren Lea MD, PhD [address] [place] [address] [email or web address] 09/14/2026 11:15 AM EDT Office Visit [address] [place] [address] Richar Ellis MD [address] [place] [address], [address] [place] [address] [email or web address] documented as of this encounter Visit Diagnoses Not on filedocumented in this encounter Additional Health Concerns Assessment Noted Time PHQ-2 Depression Total Score: 0 04/15/20 22 1:05 PM EDT documented as of this encounter Care Teams It Support Technician Relationship Specialty Start Date End Date Richar Ellis MD [address] [place] [address], [address] [place] [address] [email or web address] PCP - General Internal Medicine 09/28/20 Lauren Lea MD, PhD [address] [place] [address] [email or web address] Primary Oncologist Medical Oncology 06/17/16 Angela Price, COLLISION WORKER [address] [place] [address] [email or web address] Nurse Practitioner Medical Oncology 01/19/21 06/21/25 Richar Ellis MD [address] [place] [address], [address] [place] [address] [email or web address] Insurance Assigned Provider 12/01/21 08/30/23 Vinayak Reardon DO [address] [place] [address] [email or web address] Primary Oncologist Hematology and Oncology 06/26/22 Richar Ellis MD [address] [place] [address], [address] [place] [address] [email or web address] Insurance Assigned Provider 02/28/24 documented as of this encounter Additional Source Comments The information contained in this document represents components of the legal health record. It is not the complete legal health record.[facility]
--- OUTSIDE RECORDS SUMMARY | 2025-09-13 15:46 | XMS_ITS | Encounter Summary ---
Author Organization [facility] Address [address] [place] [address] Phone Care Team Providers Care Administrative Receptionist Name Role Phone Lauren Lea MD, PhD Unavailable [phone] Richar Ellis MD Primary Care Provider Angela Price MONORAIL CAR OPERATOR Unavailable Vinayak Reardon DO Unavailable Richar Ellis MD Unavailable Encounter Details Date Type Department Care Team (Late st Contact Info) Description 10/13/2023 Procedure Pass [facility], Ct Scan - [address] [address] Social History Tobacco Use Types Packs/Day Years [...] high school, GED, job training, learning the Belizean language, technical skills, or developing parenting skills)? [...] st Contact Info) Description 06/29/2025 Procedure Pass [facility], Ct Scan - [address] [address] 06/29/2025 Procedure Pass [facility] Ct Scan [address] [address] 09/29/2025 3:15 PM EST Appointment [facility] 30 [place] [address] Vinayak Reardon DO 30 [place] [address] [email or web address] 10/13/2025 1:30 PM EST Office Visit [facility], [facility] [place] [facility] [place] 300 [facility] 4th [place] [address] Lauren Lea MD, PhD [address] [place] [address] [email or web address] 09/14/2026 11:15 AM EDT Office Visit [address] [address] Richar Ellis MD [address] [place] [address], [address] [address] [email or web address] documented as of this encounter Visit Diagnoses Not on filedocumented in this encounter Additional Health Concerns Assessment Noted Time PHQ-9 Depression Total Score: 12 023 4:09 PM EDT PHQ-2 Depression Total Score: 3 06/13/20 23 4:09 PM EDT documented as of this encounter Care Teams Administrative Receptionist Relationship Specialty Start Date End Date Richar Ellis MD [address] [place] [address] [email or web address] PCP - General Internal Medicine 09/28/20 Lauren Lea MD, PhD [address] [place] [address] [place] [address] [email or web address] Primary Oncologist Medical Oncology 06/17/16 Angela Price FNP [address] [place] [address] [email or web address] Nurse Practitioner Medical Oncology 01/19/21 06/21/25 Vinayak Reardon DO [address] [place] [address] [email or web address] Primary Oncologist Hematology and Oncology 06/26/22 Richar Ellis MD [address] [place] [address], [address] [place], [place] [id number] [email or web address] Insurance Assigned Provider 02/28/24 documented as of this encounter Additional Source Comments The information contained in this document represents components of the legal health record. It is not the complete legal health record.[facility]
--- OUTSIDE RECORDS SUMMARY | 2025-09-13 15:46 | XMS_ITS | Encounter Summary ---
Author Organization [facility] Address [address] [address] Phone Care Team Providers Care Business Executive Name Role Phone Je Ragsdale MD Primary Care Provider + Lauren Lea MD, PhD Unavailable [phone] Vinayak Reardon DO Unavailable [phone] Je Ragsdale MD Unavailable [phone] Richar Ellis MD Primary Care Provider [phone] Angela Price CALL CENTER TEAM LEADER Unavailable [phone] Je Ragsdale MD Unavailable [phone] Richar Ellis MD Unavailable [phone] Vinayak Reardon DO Unavailable [phone] Richar Ellis MD Unavailable [phone] Encounter Details Date Type Department Care Team (Late st Contact Info) Description 09/29/2019 Procedure Pass [facility], [address] [address] Social History Tobacco Use Types Packs/Day Years [...] st Contact Info) Description 06/29/2025 Procedure Pass [address] [address] 06/29/2025 Procedure Pass [address] [address] 09/29/2025 3:15 PM EST Appointment [address] [address] Vinayak Reardon DO 30 [place] [address] [email or web address] 10/13/2025 1:30 PM EST Office Visit [facility] for [facility] On[facility], [facility] [place] [facility] [place] [address] [address] Lauren Lea MD, PhD [address] [place] [address] [place] [address] [email or web address] 09/14/2026 11:15 AM EDT Office Visit [facility] [address] [place] [address] [place] [address] Richar Ellis MD 22 [facility], [address] [place] [address] [email or web address] documented as of this encounter Visit Diagnoses Not on filedocumented in this encounter Care Teams Business Executive Relationship Specialty Start Date End Date Je Ragsdale MD [address] [place] [address] 2[place] [address] [email or web address] PCP - General 05/24/14 09/27/20 Richar Ellis MD [address] [place] [address], [address] [place] [address] [email or web address] PCP - General Internal Medicine 09/28/20 Lauren Lea MD, PhD [address] [place] [address] [email or web address] Primary Oncologist Medical Oncology 06/17/16 Vinayak Reardon DO [address] [place] [address] [email or web address] Primary Oncologist Hematology and Oncology 05/29/18 06/25/22 Je Ragsdale MD [address] [place] [address] [place] [address] [email or web address] Insurance Assigned Provider 03/27/19 09/27/20 Angela Price FNP [address] [place] [address] [email or web address] Nurse Practitioner Medical Oncology 01/19/21 06/21/25 Je Ragsdale MD [address] [place] [address] [place] [address] [email or web address] Insurance Assigned Provider 03/27/19 12/01/21 Richar Ellis MD [address] [place] [address], [address] [place] [address] [email or web address] Insurance Assigned Provider 12/01/21 08/30/23 Vinayak Reardon DO 30 [place] [address] [email or web address] Primary Oncologist Hematology and Oncology 06/26/22 Richar Ellis MD [address] [place] [address], [address] [place] [address] [email or web address] Insurance Assigned Provider 02/28/24 documented as of this encounter Additional Source Comments The information contained in this document represents components of the legal health record. It is not the complete legal health record.[facility]
--- OUTSIDE RECORDS SUMMARY | 2025-09-13 15:46 | XMS_ITS | Encounter Summary ---
Author Organization [facility] Address [address] [address] Phone Care Team Providers Care Training Executive Name Role Phone Je Ragsdale MD Primary Care Provider + Lauren Lea MD, PhD Unavailable [phone] Vinayak Reardon DO Unavailable Je Rasgdale MD Unavailable Richar Ellis MD Primary Care Provider [phone] Angela Price DRAWING TRACER Unavailable [phone] Je Ragsdale MD Unavailable Richar Ellis MD Unavailable [phone] Vinayak Reardon DO Unavailable [phone] Richar Ellis MD Unavailable [phone] Encounter Details Date Type Department Care Team (Late st Contact Info) Description 05/29/2018 Procedure Pass [facility], [address] [address] Social History Tobacco Use Types Packs/Day Years [...] st Contact Info) Description 06/29/2025 Procedure Pass [address] [address] 06/29/2025 Procedure Pass [address] [address] 09/29/2025 3:15 PM EST Appointment [address] [address] Vinayak Reardon DO 30 [place] [address] [email or web address] 10/13/2025 1:30 PM EST Office Visit [facility] Center for Thoracic Oncology, [facility] [place] [facility] [place] [address] [address] Lauren Lea MD, PhD [address] [place] [address] [place] [address] [email or web address] 09/14/2026 11:15 AM EDT Office Visit [facility] [address] [place] [address] [place] [address] Richar Ellis MD 22 [facility], [address] [place] [address] [email or web address] documented as of this encounter Visit Diagnoses Not on filedocumented in this encounter Care Teams Training Executive Relationship Specialty Start Date End Date Je Ragsdale MD [address] [place] [address] 2[place] [address] [email or web address] PCP - General 05/24/14 09/27/20 Richar Ellis MD [address] [place] [address], [address] [place] [address] [email or web address] PCP - General Internal Medicine 09/28/20 Lauren Lea MD, PhD [address] [place] [address] [email or web address] Primary Oncologist Medical Oncology 06/17/16 Vinayak Reardon DO [address] [place] [address] [email or web address] Primary Oncologist Hematology and Oncology 05/29/18 06/25/22 Je Ragsdale MD [address] [place] [address] [place] [address] [email or web address] Insurance Assigned Provider 03/27/19 09/27/20 Angela Price FNP [address] [place] [address] [email or web address] Nurse Practitioner Medical Oncology 01/19/21 06/21/25 Je Ragsdale MD [address] [place] [address] [place] [address] [email or web address] Insurance Assigned Provider 03/27/19 12/01/21 Richar Ellis MD [address] [place] [address], [address] [place] [address] [email or web address] Insurance Assigned Provider 12/01/21 08/30/23 Vinayak Reardon DO 30 [place] [address] [email or web address] Primary Oncologist Hematology and Oncology 06/26/22 Richar Ellis MD [address] [place] [address], [address] [place] [address] [email or web address] Insurance Assigned Provider 02/28/24 documented as of this encounter Additional Source Comments The information contained in this document represents components of the legal health record. It is not the complete legal health record.[facility]
--- OUTSIDE RECORDS SUMMARY | 2025-09-13 15:46 | XMS_ITS | Encounter Summary ---
Author Organization [facility] Address [address] [address] Phone Care Team Providers Care Grants Manager Name Role Phone Je Ragsdale MD Primary Care Provider + Lauren Lea MD, PhD Unavailable [phone] Vinayak Reardon DO Unavailable Je Ragsdale MD Unavailable Richar Ellis MD Primary Care Provider Angela Price ANIMAL TECH Unavailable [phone] Je Ragsdale MD Unavailable Richar Ellis MD Unavailable [phone] Vinayak Reardon DO Unavailable [phone] Richar Ellis MD Unavailable [phone] Encounter Details Date Type Department Care Team (Late st Contact Info) Description 01/26/2018 Procedure Pass [facility], [address] [address] Social History Tobacco Use Types Packs/Day Years [...] st Contact Info) Description 06/29/2025 Procedure Pass [address] [address] 06/29/2025 Procedure Pass [address] [address] 09/29/2025 3:15 PM EST Appointment [address] [address] Vinayak Reardon DO 30 [place] [address] [email or web address] 10/13/2025 1:30 PM EST Office Visit [facility] Center for Thoracic Oncology, [facility] [place] [facility] [place] [address] [address] Lauren Lea MD, PhD [address] [place] [address] [place] [address] [email or web address] 09/14/2026 11:15 AM EDT Office Visit [facility] [place] [facility] [address] [place] [address] [place] [address] Richar Ellis MD 22 [facility], [address] [place] [address] [email or web address] documented as of this encounter Visit Diagnoses Not on filedocumented in this encounter Care Teams Grants Manager Relationship Specialty Start Date End Date Je Ragsdale MD [address] [place] [address] 2[place] [address] [email or web address] PCP - General 05/24/14 09/27/20 Richar Ellis MD [address] [place] [address], [address] [place] [address] [email or web address] PCP - General Internal Medicine 09/28/20 Lauren Lea MD, PhD [address] [place] [address] [email or web address] Primary Oncologist Medical Oncology 06/17/16 Vinayak Reardon DO [address] [place] [address] [email or web address] Primary Oncologist Hematology and Oncology 05/29/18 06/25/22 Je Ragsdale MD [address] [place] [address] [place] [address] [email or web address] Insurance Assigned Provider 03/27/19 09/27/20 Angela Price FNP [address] [place] [address] [email or web address] Nurse Practitioner Medical Oncology 01/19/21 06/21/25 Je Ragsdale MD [address] [place] [address] [place] [address] [email or web address] Insurance Assigned Provider 03/27/19 12/01/21 Richar Ellis MD [address] [place] [address], [address] [place] [address] [email or web address] Insurance Assigned Provider 12/01/21 08/30/23 Vinayak Reardon DO 30 [place] [address] [email or web address] Primary Oncologist Hematology and Oncology 06/26/22 Richar Ellis MD [address] [place] [address], [address] [place] [address] [email or web address] Insurance Assigned Provider 02/28/24 documented as of this encounter Additional Source Comments The information contained in this document represents components of the legal health record. It is not the complete legal health record.[facility]
--- OUTSIDE RECORDS SUMMARY | 2025-09-13 15:46 | XMS_ITS | Encounter Summary ---
Author Organization [facility] Address [address] [place] [address] Phone Care Team Providers Care Biological Chemist Name Role Phone Lauren Lea MD, PhD Unavailable [phone] Richar Ellis MD Primary Care Provider Vinayak Reardon DO Unavailable Richar Ellis MD Unavailable [phone] Encounter Details Date Type Department Care Team (Late st Contact Info) Description 06/29/2025 Procedure Pass [facility], [address] [address] Social History Tobacco Use Types Packs/Day Years [...] 04/15/2022 Digital Access Answer Date Recorded No 06/15/2025 No 06/15/2025 Reliable internet access at home? Not on file 06/15/2025 Device with a working camera? Not on file Intimate Partner Violence Answer Date R ecorded [...] st Contact Info) Description 06/29/2025 Procedure Pass [address] [address] 06/29/2025 Procedure Pass [address] [address] 09/29/2025 3:15 PM EST Appointment [facility], Ct Scan - [facility] [address] [place] [address] Vinayak Reardon DO [address] [place] [address] [email or web address] 10/13/2025 1:30 PM EST Office Visit [facility] for [facility], [facility] [place] [facility] [place] [address] [facility] 4th [place] [address] Lauren Lea MD, PhD [address] [place] [address] [email or web address] 09/14/2026 11:15 AM EDT Office Visit [address] [address] Richar Ellis MD [address] [place] [address], [address] [place] [address] [email or web address] documented as of this encounter Visit Diagnoses Not on filedocumented in this encounter Additional Health Concerns Assessment Noted Time PHQ-9 Depression Total Score: 12 023 4:09 PM EDT PHQ-2 Depression Total Score: 0 04/21/20 25 8:15 AM EDT documented as of this encounter Care Teams Biological Chemist Relationship Specialty Start Date End Date Richar Ellis MD [address] [place] [address], [address] [place] [address] [email or web address] PCP - General Internal Medicine 09/28/20 Lauren Lea MD, PhD [address] [place] [address] [email or web address] Primary Oncologist Medical Oncology 06/17/16 Vinayak Reardon DO [address] [place] [address] [email or web address] Primary Oncologist Hematology and Oncology 06/26/22 Richar Ellis MD [address] [place] [address], [address] [place] [address] [email or web address] Insurance Assigned Provider 02/28/24 documented as of this encounter Additional Source Comments The information contained in this document represents components of the legal health record. It is not the complete legal health record.[facility]
--- OUTSIDE RECORDS SUMMARY | 2025-09-13 15:46 | XMS_ITS | Encounter Summary ---
Author Organization [facility] Address [address] [place] [address] Phone Care Team Providers Care Psychological Operations Name Role Phone Lauren Lea MD, PhD Unavailable [phone] Richar Ellis MD Primary Care Provider [phone] Angela Price PARTNER Unavailable [phone] Richar Ellis MD Unavailable [phone] Vinayak Reardon DO Unavailable [phone] Richar Ellis MD Unavailable [phone] Encounter Details Date Type Department Care Team (Late st Contact Info) Description 12/30/2022 Procedure Pass [facility], Ct Scan - [address] [address] Social History Tobacco Use Types Packs/Day Years [...] high school, GED, job training, learning the French language, technical skills, or developing parenting skills)? [...] Contact Info) Description 06/29/2025 Procedure Pass [address] [address] 06/29/2025 Procedure Pass [address] [address] 09/29/2025 3:15 PM EST Appointment [address] [address] Vinayak Reardon, [address] [place] [address] [email or web address] 10/13/2025 1:30 PM EST Office Visit [facility], [facility] at [address] [place] [address] Lauren Lea MD, PhD [address] [place] [address] [email or web address] 09/14/2026 11:15 AM EDT Office Visit [address] [place] [address] Richar Ellis MD [address] [place] [address], [address] [place] [address] [email or web address] documented as of this encounter Visit Diagnoses Not on filedocumented in this encounter Additional Health Concerns Assessment Noted Time PHQ-2 Depression Total Score: 0 04/15/20 22 1:05 PM EDT documented as of this encounter Care Teams Psychological Operations Relationship Specialty Start Date End Date Richar Ellis MD [address] [place] [address], [address] [place] [address] [email or web address] PCP - General Internal Medicine 09/28/20 Lauren Lea MD, PhD [address] [place] [address] [email or web address] Primary Oncologist Medical Oncology 06/17/16 Angela Price, PARTNER [address] [place] [address] [email or web address] Nurse Practitioner Medical Oncology 01/19/21 06/21/25 Richar Ellis MD [address] [place] [address], [address] [place] [address] [email or web address] Insurance Assigned Provider 12/01/21 08/30/23 Vinayak Reardon DO [address] [place] [address] [email or web address] Primary Oncologist Hematology and Oncology 06/26/22 Richar Ellis MD [address] [place] [address], [address] [place] [address] [email or web address] Insurance Assigned Provider 02/28/24 documented as of this encounter Additional Source Comments The information contained in this document represents components of the legal health record. It is not the complete legal health record.[facility]
--- OUTSIDE RECORDS SUMMARY | 2025-09-13 15:46 | XMS_ITS | Encounter Summary ---
Author Organization [facility] Address [address] [place] [address] Phone Care Team Providers Care Political Theory Professor Name Role Phone Lauren Lea MD, PhD Unavailable [phone] Richar Ellis MD Primary Care Provider [phone] Angela Price OEM SALES MANAGER Unavailable Vinayak Reardon DO Unavailable Richar Ellis MD Unavailable [phone] Encounter Details Date Type Department Care Team (Late st Contact Info) Description 02/18/2024 Procedure Pass [facility], [address] [place] [address] Social History Tobacco Use Types Packs/Day Years [...] high school, GED, job training, learning the [place] language, technical skills, or developing parenting skills)? [...] st Contact Info) Description 06/29/2025 Procedure Pass [facility], Ct Scan - [address] [address] 06/29/2025 Procedure Pass [facility], Ct [address] [address] 09/29/2025 3:15 PM EST Appointment [facility], [address] [address] Vinayak Reardon DO 30 [place] [address] [email or web address] 10/13/2025 1:30 PM EST Office Visit [facility] for Thoracic Oncology, [facility] [place] [facility] [place] [address] [facility] 4th [place] [address] Lauren Lea MD, PhD [address] [place] [address] [email or web address] 09/14/2026 11:15 AM EDT Office Visit [address] [address] Richar Ellis MD [address] [place] [address] [email or web address] documented as of this encounter Visit Diagnoses Not on filedocumented in this encounter Additional Health Concerns Assessment Noted Time PHQ-9 Depression Total Score: 12 023 4:09 PM EDT PHQ-2 Depression Total Score: 3 06/13/20 23 4:09 PM EDT documented as of this encounter Care Teams Political Theory Professor Relationship Specialty Start Date End Date Richar Ellis MD [address] [place] [address] [email or web address] PCP - General Internal Medicine 09/28/20 Lauren Lea MD, PhD [address] [place] [address] [email or web address] Primary Oncologist Medical Oncology 06/17/16 Angela Price FNP [address] [place] [address] [email or web address] Nurse Practitioner Medical Oncology 01/19/21 06/21/25 Vinayak Reardon DO [address] [place] [address] [email or web address] Primary Oncologist Hematology and Oncology 06/26/22 Richar Ellis MD [address] [place] [address], [address] [place] [address] [email or web address] Insurance Assigned Provider 02/28/24 documented as of this encounter Additional Source Comments The information contained in this document represents components of the legal health record. It is not the complete legal health record.[facility]
--- OUTSIDE RECORDS SUMMARY | 2025-09-13 15:46 | XMS_ITS | Encounter Summary ---
Author Organization [facility] Address [address] [facility] [address] [place] [address] Phone Care Team Providers Care Dye House Wheel Operator Name Role Phone Lauren Lea MD, PhD Unavailable [phone] Richar Ellis MD Primary Care Provider Angela Price TRAVEL MANAGER Unavailable [phone] Vinayak Reardon DO Unavailable Richar Ellis MD Unavailable [phone] Encounter Details Date Type Department Care Team (Late st Contact Info) Description 08/25/2024 Procedure Pass [facility], [address] [address] Social History Tobacco Use Types Packs/Day Years [...] st Contact Info) Description 06/29/2025 Procedure Pass [facility], Ct Scan - [address] [address] 06/29/2025 Procedure Pass [facility], Ct Scan [address] [address] 09/29/2025 3:15 PM EST Appointment [facility], Mo Scan [facility] [address] [place] [address] Vinayak Reardon DO 30 [place] [address] [email or web address] 10/13/2025 1:30 PM EST Office Visit [facility], [facility] [place] [facility] [place] [address] [facility] 4th [place] [address] Lauren Lea MD, PhD [address] [place] [address] [email or web address] 09/14/2026 11:15 AM EDT Office Visit [address] [address] Richar Ellis MD [address] [place] [address], [address] [address] [email or web address] documented as of this encounter Visit Diagnoses Not on filedocumented in this encounter Additional Health Concerns Assessment Noted Time PHQ-9 Depression Total Score: 12 023 4:09 PM EDT PHQ-2 Depression Total Score: 3 06/13/20 23 4:09 PM EDT documented as of this encounter Care Teams Dye House Wheel Operator Relationship Specialty Start Date End Date Richar Ellis MD [address] [place] [address] [email or web address] PCP - General Internal Medicine 09/28/20 Lauren Lea MD, PhD [address] [place] [address] [place] [address] [email or web address] Primary Oncologist Medical Oncology 06/17/16 Angela Price FNP [address] [place] [address] [email or web address] Nurse Practitioner Medical Oncology 01/19/21 06/21/25 Vinayak Reardon DO [address] [place] [address] [email or web address] Primary Oncologist Hematology and Oncology 06/26/22 Richar Ellis MD [address] [place] [address], [address] [place], [place] [phone] [email or web address] Insurance Assigned Provider 02/28/24 documented as of this encounter Additional Source Comments The information contained in this document represents components of the legal health record. It is not the complete legal health record.[facility]
--- OUTSIDE RECORDS SUMMARY | 2025-09-13 15:46 | XMS_ITS | Clinical Summary ---
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 Verapamil Other (See Comments) 10/10/2011 Mental slowing Medications MULTIVITAMIN ORAL Take 1 capsule by mouth daily. Active cholecalciferol (VITAMIN D3) 2,000 unit capsule Take 1 capsule (2,000 Units total) by mouth daily. 8 Active ferrous sulfate 140 mg (45 mg inaja iron) TbER Take 100 mg by mouth once a week. Pt takes iron tablet once every 2 weeks Active alectinib (ALECENSA) 150 mg capsuleIndicatio ns:Non-small cell lung cancer, unspecified laterality Take 6 capsules (900 mg total) by mouth 2 (two) times a day with meals. 360 capsule 11 5 Active tamsulosin (FLOMAX) 0.4 mg CapIndications:B enign prostatic hyperplasia with nocturia Take 1 capsule (0.4 mg total) by mouth daily. 90 capsule 3 Active Active Problems Patient Care Coordination No te [...] Overview (09/26/2020): Initially diagnosed in 1995 at [facility], recurred in 2012 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 He was put on a research compassionate treatment with alectinib, now followed by Dr. Reardon. Doing remarkably well overall Assessment & Plan (04/15/2025 3:52 PM EDT): In summary, this is a kahlil 69 yo M with advanced ALK+ NSCLC, s/p crizotinib with DES[employer] relapse, s/p WBRT, then with mild progression in the DES[employer], stable systemic disease. 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 After considering his options, Hayden opted to [...] with advanced ALK+ NSCLC, s/p crizotinib with DESIGN [employer] relapse, s/p WBRT, then with mild progression in the [employer], stable systemic disease. He started alectinib on [...] small size (?blood vessel). Given evidence of DESIGN [employer] oligoprogression, Hayden opted to proceed with alectinib [...] our visits Plan to follow up at [facility] about every ~6 mos (after scans), or [...] with advanced ALK+ NSCLC, s/p crizotinib with DESIGN [employer] relapse, s/p WBRT, then with mild progression in the DES[employer], stable systemic disease. 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 After considering his options, Hayden opted to [...] latest abd CTs Plan to followup at [facility] about every ~6 mos (after scans), or [...] with advanced ALK+ NSCLC, s/p crizotinib with DESIGN [employer] relapse, s/p WBRT, then with mild progression in the [employer], stable systemic disease. 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 After considering his options, Hayden opted to [...] latest abd CT Plan to followup at [facility] about every ~6 mos (after scans), or [...] with advanced ALK+ NSCLC, s/p crizotinib with DESIGN [employer] relapse, s/p WBRT, then with mild progression in the DES[employer], stable systemic disease. 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 I had a lengthy discussion with Hayden about these results and potential next steps. I outlined 4 possible options, including 1) continued alectinib 600 mg bid with close monitoring, 2) SRS to the cerebellar lesion with continued alectinib at 600 mg bid, 3) dose escalation of alectinib to 900 mg bid, 4) switch to a more [employer] penetrant ALK TKI, eg lorlatinib. I reviewed [...] Reardon to arrange. Plan to followup at [facility] about every ~6 mos (after scans), or [...] with advanced ALK+ NSCLC, s/p crizotinib with DES[employer] relapse, s/p WBRT, then with mild progression in the [employer], stable systemic disease. He started alectinib on [...] continue to show stable disease in the DES[employer] and body. Given he had prior WBRT, [...] months, with labs) Plan to followup at [facility] about every ~6 mos (after scans), or [...] with advanced ALK+ NSCLC, s/p crizotinib with DESIGN [employer] relapse, s/p WBRT, then with mild progression in the [employer], stable systemic disease. He started alectinib on [...] continue to show stable disease in the [employer] and body. Given he had prior WBRT, [...] months, with labs) Plan to followup at [facility] about every ~6 mos (after scans), or sooner if needed Consider PT if balance issues recur He knows to call with any questions or concerns. All questions answered and support provided. Assessment & Plan (10/05/2021 4:54 PM EST): In summary, this is a kahlil 66 yo M with advanced ALK+ NSCLC, s/p crizotinib with DES[employer] relapse, s/p WBRT, then with mild progression in the [employer], stable systemic disease. He started alectinib on [...] continue to show stable disease in the [employer] and body. The brain MRI report previously [...] months, with labs) Plan to followup at [facility] about every ~6 mos (after scans), or sooner if needed Consider PT Due for influenza vaccine Knows to call with any questions or concerns. All questions answered and support provided. Assessment & Plan (04/13/2021 9:58 PM EDT): In summary, this is a kahlil 65 yo M with advanced ALK+ NSCLC, s/p crizotinib with DES[employer] relapse, s/p WBRT, then with mild progression in the [employer], stable systemic disease. He started alectinib on [...] continue to show stable disease in the [employer] and body. The brain MRI report has [...] to Neuro-onc locally Plan to followup at [facility] about every ~6 mos (after scans), or sooner if needed Knows to call with any questions or concerns. All questions answered and support provided. Assessment & Plan (11/15/2020 9:01 AM EST): In summary, this is a kahlil 65 yo M with advanced ALK+ NSCLC, s/p crizotinib with DES[employer] relapse, s/p WBRT, then with mild progression in the [employer], stable systemic disease. He started alectinib on [...] continue to show stable disease in the [employer] and body. I personally reviewed Hayden's latest [...] between our visits Plan to followup at [facility] about every 5- 6 mos (after scans), or sooner if needed Knows to call with any questions or concerns. All questions answered and support provided. Assessment & Plan (05/20/2020 8:20 PM EDT): In summary, this is a kahlil 64 yo M with advanced ALK+ NSCLC, s/p crizotinib with DESIGN [employer] relapse, s/p WBRT, then with mild progression in the [employer], stable systemic disease. He started alectinib on [...] continue to show stable disease in the [employer] and body, great news. Prior brain MRI [...] in 12 weeks. Plan to followup at [facility] about every 6 mos (after scans), or sooner if needed Knows to call with any questions or concerns. All questions answered and support provided. Assessment & Plan (11/09/2019 3:16 PM EST): In summary, this is a kahlil 63 yo M with advanced ALK+ NSCLC, s/p crizotinib with DESIGN [employer] relapse, s/p WBRT, then with mild progression in the DES[employer], stable systemic disease. He started alectinib on [...] continue to show stable disease in the [employer] and body, great news. Prior brain MRI [...] in 8 weeks. Plan to followup at [facility] about every 16 weeks (after scans), or [...] with advanced ALK+ NSCLC, s/p crizotinib with DES[employer] relapse, s/p WBRT, then with mild progression in the DES[employer], stable systemic disease. He started alectinib on [...] Latest scans with stable disease in the DES[employer] and body. Brain MRI with a tiny [...] locally - now available to me on [facility] [place] Brain met previously improved and now stable [...] and ambien intermittently. Plan to followup at [facility] about every 16 weeks (after scans), or sooner if needed Knows to call with any questions or concerns. All questions answered and support provided. Assessment & Plan (03/14/2019 2:16 PM EDT): In summary, this is a kahlil 63 yo M with advanced ALK+ NSCLC, s/p crizotinib with DESIGN [employer]IP[employer] relapse, s/p WBRT, then with mild progression in the [employer], stable systemic disease. He started alectinib on [...] Latest scans with stable disease in the DES[employer] and body - great news! Given that he is feeling well, will continue on commercial alectinib. ? Continue alectinib 600 mg bid Continue labs locally - now available to me on [employer] Brain met previously improved and now stable [...] and ambien intermittently. Plan to followup at [facility] about every 16 weeks (after scans), or sooner if needed Knows to call with any questions or concerns. All questions answered and support provided. Assessment & Plan (11/09/2018 2:44 PM EST): In summary, this is a kahlil 63 yo M with advanced ALK+ NSCLC, s/p crizotinib with DES[employer] relapse, s/p WBRT, then with mild progression in the [employer], stable systemic disease. He started alectinib on [...] personally reviewed with stable disease in the [employer] and body - great news! Given that [...] and ambien intermittently. Plan to followup at [facility] about every 16 weeks (after scans), or sooner if needed Knows to call with any questions or concerns. All questions answered and support provided. Assessment & Plan (07/24/2018 11:25 PM EDT): In summary, this is a kahlil 63 yo M with advanced ALK+ NSCLC, s/p crizotinib with DESIGN [employer]IP[employer] relapse, s/p WBRT, then with mild progression in the DES[employer], stable systemic disease. He started alectinib on [...] Latest scans with stable disease in the DES[employer]IP[employer] and body - great news! Given that [...] and ambien intermittently. Plan to followup at [facility] about every 16 weeks (after scans), or sooner if needed Knows to call with any questions or concerns. All questions answered and support provided. Assessment & Plan (03/22/2018 10:31 PM EDT): In summary, this is a kahlil 62 yo M with advanced ALK+ NSCLC, s/p crizotinib with DESIGN [employer]IP[employer] relapse, s/p WBRT, then with mild progression in the [employer], stable systemic disease. He started alectinib on [...] Latest scans with stable disease in the [employer]IP[employer] and body - great news! Given that he is feeling well, will continue on commercial alectinib. ? Continue alectinib 600 mg bid Continue labs locally - now available to me on [employer] Brain met previously improved and now stable - changes were most consistent with post RT/treatment changes. Stable LE edema. Continue compression stockings. He will use lasix prn. Allergy symptoms - taking fiorella as needed Continue fondaparinux for h/o PEs. Continue care locally - will see Dr. Reardon in 8 weeks. Chronic sleep issues - takes melatonin and ambien intermittently. Plan to followup at [facility] about every 16 weeks (after scans), or sooner if needed Knows to call with any questions or concerns. All questions answered and support provided. Assessment & Plan (11/16/2017 11:47 PM EST): In summary, this is a kahlil 62 yo M with advanced ALK+ NSCLC, s/p crizotinib with DES[employer] relapse, s/p WBRT, then with mild progression in the DES[employer], stable systemic disease. He started alectinib on [...] Latest scans with stable disease in the DES[employer]IP[employer] and body - great news! Given that [...] and ambien intermittently. Plan to followup at [facility] about every 16 weeks (after scans), or sooner if needed Knows to call with neuro symptoms, questions or concerns. All questions answered and support provided. Assessment & Plan (08/17/2017 9:59 PM EDT): In summary, this is a kahlil 62 yo M with advanced ALK+ NSCLC, s/p crizotinib with DESIGN [employer]IP[employer] relapse, s/p WBRT, then with mild progression in the DES[employer], stable systemic disease. He started alectinib on [...] Latest scans with stable disease in the [employer]IP[employer] and body - great news! Given that [...] and ambien intermittently. Plan to followup at [facility] about every 16 weeks (after scans), or sooner if needed Knows to call with neuro symptoms, questions or concerns. All questions answered and support provided. Assessment & Plan (04/17/2017 2:51 PM EDT): In summary, this is a kahlil 61 yo M with advanced ALK+ NSCLC, currently on crizotinib, with DES[employer] relapse, s/p WBRT, now with mild progression in the DES[employer], stable systemic disease. He started alectinib on [...] Latest scans with stable disease in the DES[employer] and body - great news! Given that [...] and ambien intermittently. Plan to followup at [facility] about every 16 weeks (after scans), or sooner if needed Knows to call with neuro symptoms, questions or concerns. All questions answered and support provided. Assessment & Plan (12/14/2016 8:04 PM EST): In summary, this is a kahlil 61 yo M with advanced ALK+ NSCLC, currently on crizotinib, with DESIGN [employer] relapse, s/p WBRT, now with mild progression in the DES[employer], stable systemic disease. He started alectinib on [...] Latest scans with stable disease in the DES[employer]IP[employer] and body - great news! Given that [...] and ambien intermittently. Plan to followup at [facility] about every 16 weeks (after scans), or sooner if needed Knows to call with neuro symptoms, questions or concerns. All questions answered and support provided. Assessment & Plan (08/15/2016 10:28 PM EDT): In summary, this is a kahlil 61 yo M with advanced ALK+ NSCLC, currently on crizotinib, with recent DES[employer] relapse, s/p WBRT, now with mild progression in the [employer], stable systemic disease. He started alectinib on [...] and ambien intermittently. Plan to followup at [facility] about every 16 weeks (after scans), or sooner if needed Knows to call with neuro symptoms, questions or concerns. All questions answered and support provided. Assessment & Plan (04/11/2016 10:59 PM EDT): In summary, this is a kahlil 60 yo M with advanced ALK+ NSCLC, currently on crizotinib, with recent DES[employer] relapse, s/p WBRT, now with mild progression in the DES[employer], stable systemic disease. He started alectinib on [...] good sleep habits. Plan to followup at [facility] about every 16 weeks (after scans), or sooner if needed Knows to call with neuro symptoms, questions or concerns. All questions answered and support provided. 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 He is presently well without any sign of depression but urged wgt reduction Encounters Date Type Department Care Team Description 09/12/2025 11:30 AM EDT Office Visit [facility] [place] [place] [address] [place] [address] Richar Ellis MD Annual physical exam (Primary Dx); Colon cancer screening; Non-small cell lung cancer, unspecified laterality; Benign prostatic hyperplasia with nocturia; Bilateral leg edema; Loss of libido 07/21/2025 6:49 AM EDT - 07/21/2025 11:59 PM EDT Hospital Encounter [address] [address] Vinayak Reardon DO Discharge Disposition: Home or Self Care 06/29/2025 8:30 AM EDT Office Visit [facility] at [address] [address] Vinayak Reardon DO Non-small cell lung cancer, unspecified laterality (Primary Dx); Anemia, unspecified type 06/29/2025 8:00 AM EDT Infusion [facility] at [address] [address] Vinayak Reardon DO Romero Losada, Martha Katherine, SRIDHAR Non-small cell lung cancer, unspecified laterality 06/29/2025 Procedure Pass [address] [address] 06/29/2025 Telephone [facility] at [address] [address] Marbella Price, weed cutter Add On 06/28/2025 Orders Only [facility] at [address] [address] Brandan Torres, PHARMACEUTICAL SALES REPRESENTATIVE Non-small cell lung cancer, unspecified laterality (Primary Dx) 06/23/2025 Telephone [facility] at [address] [address] Vinayak Reardon DO port draw 06/15/2025 Telephone [facility] at [address] [address] Vinayak Reardon DO r/s appt from Last 3 Months Immunizations Immunization Administration Dates Next Due INFLUENZA, SPLIT VIRUS, TRIV ALENT W/ PRESERVATIVE IM 08/20/2017 Influenza High-Dose Quadriva lent Preservative Free IM 09/29/2020 Influenza High-Dose Trivalen t Preservative Free IM 09/12/2025,09/14/2024,09/02/2019 Influenza Quadrivalent Adjuv anted Preservative Free IM 11/10/2022 Influenza Quadrivalent Preservative Free IM 05/2023,08/13/2018,08/13/2016 Influenza, Unspecified Formulation 07/31/2023,,08/13/2018 Pneumococcal conjugate PCV13 01/26/2018 Pneumococcal conjugate PCV20 06/20/2023 Pneumococcal polysaccharide PPSV23 03/23/2018 Tdap 02/09/2023 Zoster recombinant 10/07/2022,06/26/2022 Family History Medical History Relation Comments Alzheimer's disease Maternal Grandfather Parkinson's disease Mother Alzheimer's disease Unspecified Relation Status Comments Maternal Grandfather Mother Unspecified Other Maternal Great A unt Social History Tobacco Use Types Packs/Day Years Used Date Smoking Tobacco: Never Smokeless Tobacco: Never Tobacco Cessation:Counseling Given: Not Answered Alcohol Use Standard Drinks/Week Comments No 0 [...] file Not on file Not on file Last Filed Vital Signs Vital Sign Reading Time Taken Comments Blood Pressure 108/50 09/12/2025 11:10 AM EDT Pulse 59 09/12/2025 11:10 AM EDT Temperature 36.1 C (97 F) 09/12/2025 11:10 AM EDT Respiratory Rate 17 04/14/2025 1:56 PM EDT Oxygen Saturation 98% 09/12/2025 11: 10 AM EDT Inhaled Oxygen Concentration - - Weight 75.2 kg (165 lb 12.8 oz) 025 11:10 AM EDT Height 167.6 cm (5' 5.98 ) 09/12/2025 1 1:10 AM EDT Body Mass Index 26.77 09/12/2025 11:10 AM EDT Plan of Treatment Upcoming Encounters Date Type Department Care Team (Late st Contact Info) Description 06/29/2025 Procedure [facility] [address] [place] [address] 06/29/2025 Procedure [facility] [address] [place] [address] 09/29/2025 3:15 PM EST Appointment [facility], [address] [address] Vinayak Reardon DO [address] [place] [address] [email or web address] 10/13/2025 1:30 PM EST Office Visit [facility] [place] [facility] [place] [address] [facility] [address]th [place] [address] Lauren Lea MD, PhD [address] [place] [address] [place] [address] [email or web address] 09/14/2026 11:15 AM EDT Office Visit [facility] [address] [address] Richar Ellis MD [address] [facility], [address] [place] [address] [email or web address] Health Maintenance Due Date Last Done Comments COLONOSCOPY 1999 FIT TEST 1999 FOBT 1999 SIGMOIDOSCOPY 1999 VIRTUAL COLONOSCOPY 1999 RSV VACCINE (1 - Risk 50-74 years 1-dose series) 2004 COLOGUARD 05/02/2025 05/02/2022 COLORECTAL CANCER SCREENING 05/02/2025 REPEAT PHQ 10/13/2025 09/12/2025, 09/12/2025 COVID-19 VACCINE ( season) 2026 08/20/2025, 08/28/2024, 09/07/2023, Additional history exists BLOOD PRESSURE 03/13/2026 09/12/2025 DEPRESSION SCREENING 09/12/2026 09/12/2025, 09/12/20 25 LIPID PANEL 05/16/2030 05/16/2025, 04/24/2022 Adult Td,Tdap Booster 02/09/2033 02/09/2023 HEPATITIS C SCREENING Completed 04/24/2022 ZOSTER VACCINES Completed 10/07/2022, 06/26/2022 PNEUMOCOCCAL VACCINES (50+ years) Completed 06/20/2023, 03/23/2018, 01/26/2018 INFLUENZA VACCINE Completed 09/12/2025, , 07/31/2023, Additional history exists SMOKING STATUS SCREENING (Once After 26 Yrs) Completed 09/12/2025 HEPATITIS A VACCINES Aged Out No long er eligible based on patient's age to complete this topic HIB VACCINES Aged Out No longer eligi ble based on patient's age to complete this topic MENINGOCOCCAL VACCINES (ACWY) Aged Out No longer eligible based on patient's age to complete this topic MENINGOCOCCAL VACCINES (B) Aged Out N o longer eligible based on patient's age to complete this topic Medical Devices Not on file Procedures Procedure Name Priority Date/Time Associated Diagnosis Comments MRI BRAIN WITH AND WITHOUT CONTRAST Routine 07/21/2025 8:09 AM EDT Non-small cell lung cancer, unspecified laterality Anemia, unspecified type LAB ADD ON Routine 06/29/2025 8:53 AM EDT Non-small cell lung cancer, unspecified laterality Anemia, unspecified type IRON AND IRON BINDING CAPACITY Routine 06/29/2025 7:56 AM EDT FERRITIN Routine 06/29/2025 7:56 AM EDT VITAMIN B12 Routine 06/29/2025 7:56 AM EDT CPK (CREATINE KINASE) Routine 06/29/2025 7:56 AM EDT Non-small cell lung cancer, unspecified laterality COMPREHENSIVE METABOLIC PANEL Routine 06/29/2025 7:56 AM EDT Non-small cell lung cancer, unspecified laterality CBC AND DIFFERENTIAL Routine 06/29/2025 7:56 AM EDT Non-small cell lung cancer, unspecified laterality LIPID PANEL Routine 05/16/2025 8:37 AM EDT Well adult exam HEPATITIS C ANTIBODY, QUALITATIVE Routine 04/24/2022 1:40 PM EDT Need for hepatitis C screening test from Last 3 Months or Most Recently Relevant to Health Maintenance Results * MRI BRAIN WITH AND WITHOUT CONTRAST (07/21/2025 8:09 AM EDT) Anatomical Region Laterality Modality Head Magnetic Resonan ce 07/21/2025 1:01 PM EDT Impressions 07/21/2025 1:13 PM EDT 1. 4 mm enhancing focus within the right cerebral hemisphere appears unchanged. No progressive or evidence of new intracranial metastasis. Narrative 07/21/2025 1:13 PM EDT MRI BRAIN WITH AND WITHOUT CONTRAST Referring clinician's provided indication for this examination in [facility]: * Brain mass or lesion TECHNIQUE: MRI BRAIN WITH AND WITHOUT CONTRAST Multi-sequence, multi-planar MRI of the brain was performed before and after intravenous contrast. COMPARISON: April 04, 2025 FINDINGS: Brain Parenchyma: The 4 mm enhancing lesion within the right cerebellar hemisphere appears similar to April 04, 2025. No new enhancing lesions. The left frontal encephalomalacia with with minimal residual curvilinear enhancement appears similar the prior study. There is confluent hyperintense signal on T2-weighted images throughout the white matter likely treatment related and/or secondary to chronic small vessel disease. There are innumerable small foci of susceptibility effect throughout the periventricular white matter and cerebellar hemispheres likely chronic hypertensive related microhemorrhage and to some degree possibly the sequela of radiation therapy. Ventricular System and Extra-Axial Spaces: Normal. No evidence of midline shift or hydrocephalus. Extracranial Structures: Expected arterial flow signal is observed at the skull base. Procedure Note Graeme Burleson DO - 07/21/2025 MRI BRAIN WITH AND WITHOUT CONTRAST Referring clinician's provided indication for this examination in [facility]: *Brain mass or lesion TECHNIQUE: MRI BRAIN WITH AND WITHOUT CONTRAST Multi-sequence, multi-planar MRI of the brain was performed before andafter intravenous contrast. COMPARISON: April 04, 2025 FINDINGS: Brain Parenchyma: The 4 mm enhancing lesion within the right cerebellarhemisphere appears similar to April 04, 2025. No new enhancing lesions. Theleft frontal encephalomalacia with with minimal residual curvilinearenhancement appears similar the prior study. There is confluenthyperintense signal on T2-weighted images throughout the white matterlikely treatment related and/or secondary to chronic small vessel disease.There are innumerable small foci of susceptibility effect throughout theperiventricular white matter and cerebellar hemispheres likely chronichypertensive related microhemorrhage and to some degree possibly thesequela of radiation therapy. Ventricular System and Extra-Axial Spaces: Normal. No evidence of midlineshift or hydrocephalus. Extracranial Structures: Expected arterial flow signal is observed at theskull base. IMPRESSION: 1. 4 mm enhancing focus within the right cerebral hemisphere appearsunchanged. No progressive or evidence of new intracranial metastasis. Vinayak Reardon DO IMG MR HEAD/NECK Final Resu lt * Lab Add On: ferritin, iron panel, b12, folate (06/29/2025 8:53 AM EDT) Pathologist [facility] [place] TEST REQUESTED FERRITIN, IRON PANEL, B12, FOLATE [facility] Comments (Chemistry) Add on order being processed. Floor or provider will be notified if testing cannot be performed [facility] 06/29/2025 8:53 AM EDT 06/29/2025 9:41 AM EDT Vinayak Reardon DO LAB BLOOD ORDERABLES Final Result [facility] [address] [place] [address] * (ABNORMAL) Comprehensive metabolic panel (06/29/2025 7:56 AM EDT) SODIUM 143 133 - 146 mmol/L [facility] POTASSIUM 3.9 3.3 - 5.1 mmol/L [facility] CHLORIDE 106 96 - 108 mmol/L [facility] CO2 27 21 - 35 mmol/L [facility] BUN 20(H) 6 - 19 mg/dL [facility] CREATININE 1.20 0.5 - 1.5 mg/dL [facility] GLUCOSE 114(H) 70 - 99 mg/dL [facility] ALBUMIN 4.1 3.9 - 4.8 g/dL [facility] TOTAL PROTEIN 6.1(L) 6.5 - 8.0 g/dL [facility] CALCIUM 8.3(L) 8.4 - 10.3 mg/dL [facility] ALKALINE PHOSPHATASE 138(H) 39 - 117 U/L [facility] TOTAL BILIRUBIN 1.0 0.0 - 1.2 mg/dL [facility] AST 22 0 - 37 U/L [facility] ALT 13 0 - 40 U/L [facility] GLOBULIN 2.0 1 - 4.8 g/dL [facility] EGFR 65 >59 mL/min/1.7 3m2 [facility] Comment:Estimated glomerular filtration rate calculated using the CKD-EPI refit equation. ANION GAP 14 10 - 20 mmol/L [facility] Blood 06/29/2025 7:56 AM EDT 06/29/2025 8:40 AM EDT us Vinayak Reardon DO LAB BLOOD ORDERABLES Final Result Performing Organization Address [facility] Co de Phone Number [address] [address] * Iron and iron binding capacity (06/29/2025 7:56 AM EDT) IRON 86 45 - 160 ug/dL [facility] IRON BINDING CAPACITY 256 228 - 428 ug/dL [facility] TRANSFERRIN SATURAT. 34 20 - 55 % [facility] 06/29/2025 7:56 AM EDT 06/29/2025 8:40 AM EDT us Vinayak Reardon DO LAB BLOOD ORDERABLES Final Result Performing Organization Address [facility]/ZIP Co de Phone Number [address] [address] * (ABNORMAL) CBC and differential (06/29/2025 7:56 AM EDT) WBC 5.68 4.00 - 11.00 K/uL [facility] RBC 2.96(L) 4.50 - 5.90 M/uL [facility] HGB 9.3(L) 13.5 - 17.5 g/dL [facility] HCT 27.3(L) 41.0 - 53.0 % [facility] PLT 102(L) 150 - 450 K/uL [facility] Comment:Microscopic estimate : Platelets slightly decreased. MCV 92.2 80.0 - 100.0 fL [facility] MCH 31.4(H) 27.0 - 31.0 pg [facility] MCHC 34.1 32.0 - 36.0 g/dL [facility] RDW 16.4(H) 11.5 - 14.5 % [facility] MPV 11.9 8.4 - 12.0 fL [facility] NRBC 0.00 0.00 /100 WBCs [facility] ABSOLUTE NRBC 0.00 0.00 K/uL [facility] DIFF METHOD Auto [facility] NEUTS 73.1 48.0 - 76.0 % [facility] LYMPHS 14.1(L) 18.0 - 41.0 % [facility] MONOS 10.0 4.0 - 11.0 % [facility] EOS 1.2 0.0 - 5.0 % [facility] BASOS 0.4 0.0 - 1.5 % [facility] Granulocytes, immature (%) 1.2(H) 0.0 - 0.9 % [facility] ABSOLUTE NEUTS 4.15 1.92 - 7.60 K/uL [facility] ABSOLUTE LYMPHS 0.80 0.72 - 4.10 K/uL [facility] ABSOLUTE MONOS 0.57 0.16 - 1.10 K/uL [facility] ABSOLUTE EOS 0.07 0.00 - 0.50 K/uL [facility] ABSOLUTE BASOS 0.02 0.00 - 0.15 K/uL [facility] Granulocytes, immature 0.07 0.00 - 0.09 K/uL [facility] Blood 06/29/2025 7:56 AM EDT 06/29/2025 8:40 AM EDT us Vinayak Reardon DO LAB BLOOD ORDERABLES Final Result Performing Organization Address [facility] Co de Phone Number [address] [address] * (ABNORMAL) Ferritin (06/29/2025 7:56 AM EDT) FERRITIN 417(H) 30 - 400 ug/L [facility] 06/29/2025 7:56 AM EDT 06/29/2025 8:40 AM EDT us Vinayak Carlton Alexys DO LAB BLOOD ORDERABLES Final Result Performing Organization Address [facility] de Phone Number [address] [address] * Vitamin B12 (06/29/2025 7:56 AM EDT) VITAMIN B12 479 232 - 1,245 pg/mL [facility] 06/29/2025 7:56 AM EDT 06/29/2025 8:40 AM EDT us Vinayak Holcombjace ZAMBRANO LAB BLOOD ORDERABLES Final Result Performing Organization Address [facility] Co de Phone Number [address] [address] * CPK (creatine kinase) (06/29/2025 7:56 AM EDT) CREATINE KINASE 182 35 - 232 U/L [facility] Blood 06/29/2025 7:56 AM EDT 06/29/2025 8:40 AM EDT us Licea Bianka Reardon DO LAB BLOOD ORDERABLES Final Result Performing Organization Address [facility]/ZIP Co de Phone Number [address] [address] * (ABNORMAL) Lipid panel (05/16/2025 8:37 AM EDT) HDL 49 mg/dL [facility] Comment: Interpretation <40 mg/dL: Low HDL cholesterol (major risk factor for CHD) Greater than or equal to 60 mg/dL: High HDL cholesterol ( negative risk factor for CHD) HDL - cholesterol is affected by a number of factors, e.g. smoking, excerise, hormones, sex and age. CHOLESTEROL 148 0 - 240 mg/dL [facility] TRIGLYCERIDES 97 30 - 160 mg/dL [facility] LDL 80 50 - 129 mg/dL [facility] Comment: LDL levels in terms of risk for coronary heart disease: <100 mg/dL: Optimal 100-129 mg/dL: Near or above optimal 130-159 mg/dL: Borderline high 160-189 mg/dL: High >190 mg/dL: Very High CARDIAC RISK RATIO 3.0(L) 3.4 - 5.[address] [facility] 05/16/2025 8:37 AM EDT 05/16/2025 9:00 AM EDT us Richar Ellis MD LAB BLOOD ORDERABLES Final Resu lt Performing Organization Address [facility] Co de Phone Number [address] [address] * Hepatitis C antibody, qualitative (04/24/2022 1:40 PM EDT) HCV NON-REACTIV E NON-REACTI VE [facility] 04/24/2022 1:40 PM EDT 04/24/2022 2:11 PM EDT us Richar Ellis MD LAB BLOOD ORDERABLES Final Resu lt Performing Organization Address [facility]/ZIP Co de Phone Number [address] [address] from Last 3 Months or Most Recently Relevant to Health Maintenance Insurance [facility] Advance Directives For more information, please contact: [phone] (9AM - 5PM [facility], Friday-Friday) Documents on File Type Date Recorded Patient Senior Applications Architect Expl anation Advance Directive - Non Epic LMR 03/03/2015 12:00 AM Care Teams Records Tech Relationship Specialty Start Date End Date Richar Ellis MD [address] [place] [address], [address] [place] [address] [email or web address] PCP - General Internal Medicine 09/28/20 Lauren Lea MD, PhD [address] [place] [address] [email or web address] Primary Oncologist Medical Oncology 06/17/16 Vinayak Reardon DO [address] [place] [address] [email or web address] Primary Oncologist Hematology and Oncology 06/26/22 Richar Ellis MD [address] [place] [address], [address] [place] [address] [email or web address] Insurance Assigned Provider 02/28/24 Additional Source Comments The information contained in this document represents components of the legal health record. It is not the complete legal health record.[facility]
--- OUTSIDE RECORDS SUMMARY | 2025-09-13 15:46 | XMS_ITS | Encounter Summary ---
Author Organization [facility] Address [address] [place] [address] Phone Care Team Providers Care Reforestation Worker Name Role Phone Lauren Lea MD, PhD Unavailable [phone] Richar Ellis MD Primary Care Provider [phone] Angela Price CONSULTING SOLUTION DIRECTOR Unavailable Vinayak Reardon DO Unavailable [phone] Richar Ellis MD Unavailable [phone] Encounter Details Date Type Department Care Team (Late st Contact Info) Description 11/10/2023 Procedure Pass [facility], [address] [address] Social History Tobacco Use Types Packs/Day Years [...] high school, GED, job training, learning the [place] language, technical skills, or developing parenting skills)? [...] st Contact Info) Description 06/29/2025 Procedure Pass [facility], Ct Scan - [address] [address] 06/29/2025 Procedure Pass [facility], Ct Scan [address] [address] 09/29/2025 3:15 PM EST Appointment [facility], [address] [address] Vinayak Reardon DO [address] [place] [address] [email or web address] 10/13/2025 1:30 PM EST Office Visit [facility], [facility] [place] [facility] [place] [address] [facility] 4th [place] [address] Lauren Lea MD, PhD [address] [place] [address] [email or web address] 09/14/2026 11:15 AM EDT Office Visit [address] [address] Richar Ellis MD [address] [place] [address] [email or web address] documented as of this encounter Visit Diagnoses Not on filedocumented in this encounter Additional Health Concerns Assessment Noted Time PHQ-9 Depression Total Score: 12 023 4:09 PM EDT PHQ-2 Depression Total Score: 3 06/13/20 23 4:09 PM EDT documented as of this encounter Care Teams Reforestation Worker Relationship Specialty Start Date End Date Richar Ellis MD [address] [place] [address] [email or web address] PCP - General Internal Medicine 09/28/20 Lauren Lea MD, PhD [address] [place] [address] [place] [address] [email or web address] Primary Oncologist Medical Oncology 06/17/16 Angela Price FNP [address] [place] [address] [email or web address] Nurse Practitioner Medical Oncology 01/19/21 06/21/25 Vinayak Reardon DO [address] [place] [address] [email or web address] Primary Oncologist Hematology and Oncology 06/26/22 Richar Ellis MD [address] [place] [address], [address] [place] [address] [email or web address] Insurance Assigned Provider 02/28/24 documented as of this encounter Additional Source Comments The information contained in this document represents components of the legal health record. It is not the complete legal health record.[facility]
--- OUTSIDE RECORDS SUMMARY | 2025-09-13 15:46 | XMS_ITS | Encounter Summary ---
Author Organization [facility] Address [address] [address] Phone Care Team Providers Care Billing And Insurance Coordinator Name Role Phone Je Ragsdale MD Primary Care Provider + Lauren Lea MD, PhD Unavailable [phone] Vinayak Reardon DO Unavailable Je Ragsdale MD Unavailable Richar Ellis MD Primary Care Provider [phone] Angela Price ELECTROENCEPHALOGRAPHIC TECHNOLOGIST Unavailable [phone] Je Ragsdale MD Unavailable Richar Ellis MD Unavailable [phone] Vinayak Reardon DO Unavailable [phone] Richar Ellis MD Unavailable [phone] Encounter Details Date Type Department Care Team (Late st Contact Info) Description 07/19/2020 Procedure Pass [facility], [address] [address] Social History Tobacco Use Types Packs/Day Years [...] st Contact Info) Description 06/29/2025 Procedure Pass [address] [address] 06/29/2025 Procedure Pass [address] [address] 09/29/2025 3:15 PM EST Appointment [address] [address] Vinayak Reardon DO [address] [place] [address] [email or web address] 10/13/2025 1:30 PM EST Office Visit [facility], [facility] [place] [facility] [place] [address] [address] Lauren Lea MD, PhD [address] [place] [address] [place] [address] [email or web address] 09/14/2026 11:15 AM EDT Office Visit [facility] [address] [place] [address] [place] [address] Richar Ellis MD [address] [facility], [address] [place] [address] [email or web address] documented as of this encounter Visit Diagnoses Not on filedocumented in this encounter Care Teams Billing And Insurance Coordinator Relationship Specialty Start Date End Date Je Ragsdale MD [address] [place] [address] [address] [place] [address] [email or web address] PCP - General 05/24/14 09/27/20 Richar Ellis MD [address] [place] [address], [address] [place] [address] [email or web address] PCP - General Internal Medicine 09/28/20 Lauren Lea MD, PhD [address] [place] [address] [email or web address] Primary Oncologist Medical Oncology 06/17/16 Vinayak Reardon DO [address] [place] [address] [email or web address] Primary Oncologist Hematology and Oncology 05/29/18 06/25/22 Je Ragsdale MD [address] [place] [address] [place] [address] [email or web address] Insurance Assigned Provider 03/27/19 09/27/20 Angela Price FNP [address] [place] [address] [email or web address] Nurse Practitioner Medical Oncology 01/19/21 06/21/25 Je Ragsdale MD [address] [place] [address] [address] [place] [address] [email or web address] Insurance Assigned Provider 03/27/19 12/01/21 Richar Ellis MD [address] [place] [address], [address] [place] [address] [email or web address] Insurance Assigned Provider 12/01/21 08/30/23 Vinayak Reardon DO [address] [place] [address] [email or web address] Primary Oncologist Hematology and Oncology 06/26/22 Richar Ellis MD [address] [place] [address], [address] [place] [address] [email or web address] Insurance Assigned Provider 02/28/24 documented as of this encounter Additional Source Comments The information contained in this document represents components of the legal health record. It is not the complete legal health record.[facility]
--- OUTSIDE RECORDS SUMMARY | 2025-09-13 15:46 | XMS_ITS | Encounter Summary ---
Author Organization [facility] Address [address] [address] Phone Care Team Providers Care Technical Sales Associate Name Role Phone Je Ragsdale MD Primary Care Provider + Lauren Lea MD, PhD Unavailable [phone] Vinayak Reardon DO Unavailable Je Ragsdale MD Unavailable Richar Ellis MD Primary Care Provider [phone] Angela Price [employer] Unavailable Je Ragsdale MD Unavailable [phone] Richar Ellis MD Unavailable [phone] Vinayak Reardon DO Unavailable [phone] Richar Ellis MD Unavailable [phone] Encounter Details Date Type Department Care Team (Late st Contact Info) Description 03/01/2020 Procedure Pass [facility], [address] [address] Social History Tobacco Use Types Packs/Day Years [...] st Contact Info) Description 06/29/2025 Procedure Pass [address] [address] 06/29/2025 Procedure Pass [address] [address] 09/29/2025 3:15 PM EST Appointment [address] [address] Vinayak Reardon DO [address] [place] [address] [email or web address] 10/13/2025 1:30 PM EST Office Visit [facility], [facility] [place] [facility] [place] [address] [address] Lauren Lea MD, PhD [address] [place] [address] [place] [address] [email or web address] 09/14/2026 11:15 AM EDT Office Visit [facility] [address] [place] [address] [place] [address] Richar Ellis MD [address] [facility], [address] [place] [address] [email or web address] documented as of this encounter Visit Diagnoses Not on filedocumented in this encounter Care Teams Technical Sales Associate Relationship Specialty Start Date End Date Je Ragsdale MD [address] [place] [address] [address] [place] [address] [email or web address] PCP - General 05/24/14 09/27/20 Richar Ellis MD [address] [place] [address], [address] [place] [address] [email or web address] PCP - General Internal Medicine 09/28/20 Lauren Lea MD, PhD [address] [place] [address] [email or web address] Primary Oncologist Medical Oncology 06/17/16 Vinayak Reardon DO [address] [place] [address] [email or web address] Primary Oncologist Hematology and Oncology 05/29/18 06/25/22 Je Ragsdale MD [address] [place] [address] [place] [address] [email or web address] Insurance Assigned Provider 03/27/19 09/27/20 Angela Price FNP [address] [place] [address] [email or web address] Nurse Practitioner Medical Oncology 01/19/21 06/21/25 Je Ragsdale MD [address] [place] [address] Dr [place] [address] [email or web address] Insurance Assigned Provider 03/27/19 12/01/21 Richar Ellis MD [address] [place] [address], [address] [place] [address] [email or web address] Insurance Assigned Provider 12/01/21 08/30/23 Vinayak Reardon DO [address] [place] [address] [email or web address] Primary Oncologist Hematology and Oncology 06/26/22 Richar Ellis MD [address] [place] [address], [address] [place] [address] [email or web address] Insurance Assigned Provider 02/28/24 documented as of this encounter Additional Source Comments The information contained in this document represents components of the legal health record. It is not the complete legal health record.[facility]
--- OUTSIDE RECORDS SUMMARY | 2025-09-13 15:46 | XMS_ITS | Encounter Summary ---
Author Organization [facility] Address [address] [place] [address] Phone Care Team Providers Care Magazine Hand Name Role Phone Lauren Lea MD, PhD Unavailable [phone] Richar Ellis MD Primary Care Provider [phone] Angela Price GAMBLING BOX PERSON Unavailable [phone] Richar Ellis MD Unavailable [phone] Vinayak Reradon DO Unavailable [phone] Richar Ellis MD Unavailable [phone] Encounter Details Date Type Department Care Team (Late st Contact Info) Description 06/27/2022 Procedure Pass [facility], Ct Scan - [address] [address] Social History Tobacco Use Types Packs/Day Years [...] high school, GED, job training, learning the Burmese language, technical skills, or developing parenting skills)? [...] Contact Info) Description 06/29/2025 Procedure Pass [address] [address] 06/29/2025 Procedure Pass [address] [address] 09/29/2025 3:15 PM EST Appointment [address] [address] Vinayak Reardon, 30 [place] [address] [email or web address] [facility] 10/13/2025 1:30 PM EST Office Visit [facility] Center for Thoracic Oncology, [facility] [place] at [address] [place] [address] Lauren Lea MD, PhD [address] [place] [address] [email or web address] 09/14/2026 11:15 AM EDT Office Visit [address] [place] [address] Richar Ellis MD [address] [place] [address], [address] [place] [address] [email or web address] documented as of this encounter Visit Diagnoses Not on filedocumented in this encounter Additional Health Concerns Assessment Noted Time PHQ-2 Depression Total Score: 0 04/15/20 22 1:05 PM EDT documented as of this encounter Care Teams Magazine Hand Relationship Specialty Start Date End Date Richar Ellis MD [address] [place] [address], [address] [place] [address] [email or web address] PCP - General Internal Medicine 09/28/20 Lauren Lea MD, PhD [address] [place] [address] [email or web address] Primary Oncologist Medical Oncology 06/17/16 Angela Price, GAMBLING BOX PERSON [address] [place] [address] [email or web address] Nurse Practitioner Medical Oncology 01/19/21 06/21/25 Richar Ellis MD [address] [place] [address], [address] [place] [address] [email or web address] Insurance Assigned Provider 12/01/21 08/30/23 Vinayak Reardon DO [address] [place] [address] [email or web address] Primary Oncologist Hematology and Oncology 06/26/22 Richar Ellis MD [address] [place] [address], [address] [place] [address] [email or web address] Insurance Assigned Provider 02/28/24 documented as of this encounter Additional Source Comments The information contained in this document represents components of the legal health record. It is not the complete legal health record.[facility]
--- OUTSIDE RECORDS SUMMARY | 2025-09-13 15:46 | XMS_ITS | Encounter Summary ---
Author Organization [facility] Address [address] [address] Phone Care Team Providers Care Professional Athlete Name Role Phone Je Ragsdale MD Primary Care Provider + Lauren Lea MD, PhD Unavailable [phone] Vinayak Reardon DO Unavailable Je Ragsdale MD Unavailable [phone] Richar Ellis MD Primary Care Provider Angela Price ROAD CONDUCTOR Unavailable [phone] Je Ragsdale MD Unavailable Richar Ellis MD Unavailable [phone] Vinayak Reardon DO Unavailable [phone] Richar Ellis MD Unavailable [phone] Encounter Details Date Type Department Care Team (Late st Contact Info) Description 05/24/2019 Procedure Pass [facility], [address] [address] Social History Tobacco Use Types Packs/Day Years [...] Contact Info) Description 06/29/2025 Procedure Pass [address] [address] 06/29/2025 Procedure Pass [address] [address] 09/29/2025 3:15 PM EST Appointment [address] [address] Vinayak Reardon DO 30 [place] [address] [email or web address] 10/13/2025 1:30 PM EST Office Visit [facility], [facility] [place] [facility] [place] [address] [address] Lauren Lea MD, PhD [address] [place] [address] [place] [address] Selena@[email or web address] 09/14/2026 11:15 AM EDT Office Visit [facility] [place] [facility] [address] [place] [address] [place] [address] Richar Ellis MD 22 [facility], [address] [place] [address] [email or web address] documented as of this encounter Visit Diagnoses Not on filedocumented in this encounter Care Teams Professional Athlete Relationship Specialty Start Date End Date Je Ragsdale MD [address] [place] [address] 2[place] [address] [email or web address] PCP - General 05/24/14 09/27/20 Richar Ellis MD [address] [place] [address], [address] [place] [address] [email or web address] PCP - General Internal Medicine 09/28/20 Lauren Lea MD, PhD [address] [place] [address] [email or web address] Primary Oncologist Medical Oncology 06/17/16 Vinayak Reardon DO [address] [place] [address] [email or web address] Primary Oncologist Hematology and Oncology 05/29/18 06/25/22 Je Ragsdale MD [address] [place] [address] [place] [address] [email or web address] Insurance Assigned Provider 03/27/19 09/27/20 Angela Price FNP [address] [place] [address] [email or web address] Nurse Practitioner Medical Oncology 01/19/21 06/21/25 Je Ragsdale MD [address] [place] [address] Dr [place]endo[place] [address] [email or web address] Insurance Assigned Provider 03/27/19 12/01/21 Richar Ellis MD [address] [place] [address], [address] [place] [address] [email or web address] Insurance Assigned Provider 12/01/21 08/30/23 Vinayak Reardon DO 30 [place] [address] [email or web address] Primary Oncologist Hematology and Oncology 06/26/22 Richar Ellis MD [address] [place] [address], [address] [place] [address] [email or web address] Insurance Assigned Provider 02/28/24 documented as of this encounter Additional Source Comments The information contained in this document represents components of the legal health record. It is not the complete legal health record.[facility]
--- OUTSIDE RECORDS SUMMARY | 2025-09-13 15:46 | XMS_ITS | Encounter Summary ---
Author Organization [facility] Address [address] [facility] [address] [place] [address] Phone Care Team Providers Care Licensed Marriage And Family Therapist Name Role Phone Lauren Lea MD, PhD Unavailable [phone] Richar Ellis MD Primary Care Provider [phone] Angela Price HUNTER Unavailable [phone] Richar Ellis MD Unavailable [phone] Vinayak Reardon DO Unavailable [phone] Richar Ellis MD Unavailable [phone] Encounter Details Date Type Department Care Team (Late st Contact Info) Description 06/27/2022 Procedure Pass [facility], [address] [address] Social History Tobacco Use Types Packs/Day Years [...] high school, GED, job training, learning the Bahraini language, technical skills, or developing parenting skills)? [...] Contact Info) Description 06/29/2025 Procedure Pass [address] [address] 06/29/2025 Procedure Pass [address] [address] 09/29/2025 3:15 PM EST Appointment [address] [address] Vinayak Reardon, 30 [place] [address] [email or web address] [email or web address] 10/13/2025 1:30 PM EST Office Visit [facility] Center for Thoracic Oncology, [facility] [place] [address] [address] Lauren Lea MD, PhD [address] [place] [address] [email or web address] 09/14/2026 11:15 AM EDT Office Visit [facility] Medicine [address] [place] [address] [place] [address] Richar Ellis MD [address] [place] [address], [address] [place] [address] [email or web address] documented as of this encounter Visit Diagnoses Not on filedocumented in this encounter Additional Health Concerns Assessment Noted Time PHQ-2 Depression Total Score: 0 04/15/20 22 1:05 PM EDT documented as of this encounter Care Teams Licensed Marriage And Family Therapist Relationship Specialty Start Date End Date Richar Ellis MD [address] [place] [address], [address] [place] [address] [email or web address] PCP - General Internal Medicine 09/28/20 Lauren Lea MD, PhD [address] [place] [address] [email or web address] Primary Oncologist Medical Oncology 06/17/16 Angela Price, HUNTER [address] [place] [address] [email or web address] Nurse Practitioner Medical Oncology 01/19/21 06/21/25 Richar Ellis MD [address] [place] [address], [address] [place] [address] [email or web address] Insurance Assigned Provider 12/01/21 08/30/23 Vinayak Reardon DO [address] [place] [address] [email or web address] Primary Oncologist Hematology and Oncology 06/26/22 Richar Ellis MD [address] [place] [address], [address] [place] [address] [email or web address] Insurance Assigned Provider 02/28/24 documented as of this encounter Additional Source Comments The information contained in this document represents components of the legal health record. It is not the complete legal health record.[facility]
--- OUTSIDE RECORDS SUMMARY | 2025-09-13 15:46 | XMS_ITS | Encounter Summary ---
Author Organization [facility] Address [address] [place] [address] Phone Care Team Providers Care Senior Hardware Design Engineer Name Role Phone Lauren Lea MD, PhD Unavailable [phone] Richar Ellis MD Primary Care Provider Angela Price TRANSFER ENGINEER Unavailable [phone] Richar Ellis MD Unavailable [phone] Vinayak Reardon DO Unavailable [phone] Richar Ellis MD Unavailable [phone] Encounter Details Date Type Department Care Team (Late st Contact Info) Description 06/19/2023 Procedure Pass [facility], Ct Scan - [address] [address] Social History Tobacco Use Types Packs/Day Years [...] high school, GED, job training, learning the Grenadian language, technical skills, or developing parenting skills)? [...] st Contact Info) Description 06/29/2025 Procedure Pass [facility], Ct Scan - [facility] 30 [place] [address] 06/29/2025 Procedure Pass [facility], Ct Scan [address] [address] 09/29/2025 3:15 PM EST Appointment [facility] Ct Scan [address] [address] Vinayak Reardon, 30 [place] [address] [email or web address] 10/13/2025 1:30 PM EST Office Visit [facility] for [facility] On[facility], [facility] [place] [address] [address] Lauren Lea MD, PhD [address] [place] [address] [email or web address]@[email or web address] 09/14/2026 11:15 AM EDT Office Visit [address] [address] Richar Ellis MD [address] [place] [address], [address] [place] [address] [email or web address] documented as of this encounter Visit Diagnoses Not on filedocumented in this encounter Additional Health Concerns Assessment Noted Time PHQ-9 Depression Total Score: 12 023 4:09 PM EDT PHQ-2 Depression Total Score: 3 06/13/20 23 4:09 PM EDT documented as of this encounter Care Teams Senior Hardware Design Engineer Relationship Specialty Start Date End Date Richar Ellis MD [address] [place] [address], [address] [place] [address] [email or web address] PCP - General Internal Medicine 09/28/20 Lauren Lea MD, PhD [address] [place] [address] [place] [address] [email or web address] Primary Oncologist Medical Oncology 06/17/16 Angela Price FNP [address] [place] [address] [email or web address] Nurse Practitioner Medical Oncology 01/19/21 06/21/25 Richar Ellis MD [address] [place] [address] [email or web address] Insurance Assigned Provider 12/01/21 08/30/23 Vinayak Reardon DO [address] [place] [address] [email or web address] Primary Oncologist Hematology and Oncology 06/26/22 Richar Ellis MD [address] [place] [address] Insurance Assigned Provider 02/28/24 documented as of this encounter Additional Source Comments The information contained in this document represents components of the legal health record. It is not the complete legal health record.[facility]
--- OUTSIDE RECORDS SUMMARY | 2025-09-13 15:46 | XMS_ITS | Encounter Summary ---
Author Organization [facility] Address [address] [address] Phone Care Team Providers Care Gauge Maker Apprentice Name Role Phone Je Ragsdale MD Primary Care Provider + Lauren Lea MD, PhD Unavailable [phone] Vinayak Reardon DO Unavailable Je Ragsdale MD Unavailable Richar Ellis MD Primary Care Provider Angela Price SENIOR JAVA J2EE DEVELOPER Unavailable Je Ragsdale MD Unavailable Richar Ellis MD Unavailable [phone] Vinayak Reardon DO Unavailable [phone] Richar Ellis MD Unavailable [phone] Encounter Details Date Type Department Care Team (Late st Contact Info) Description 05/29/2018 Procedure Pass [facility], Ct Scan - [address] [address] Social History Tobacco Use Types Packs/Day Years [...] st Contact Info) Description 06/29/2025 Procedure Pass [address] [address] 06/29/2025 Procedure Pass [address] [address] 09/29/2025 3:15 PM EST Appointment [address] [address] Vinayak Reardon, 30 [place] [address] [email or web address] 10/13/2025 1:30 PM EST Office Visit [facility] Center for Thoracic Oncology, [facility] [place] [facility] [place] [address] [address] Lauren Lea MD, PhD [address] [place] [address] [email or web address] 09/14/2026 11:15 AM EDT Office Visit [facility] [address] [place] [address] [place] [address] Richar Ellis MD [address] [place] [address], [address] [place] [address] [email or web address] documented as of this encounter Visit Diagnoses Not on filedocumented in this encounter Care Teams Gauge Maker Apprentice Relationship Specialty Start Date End Date Je Ragsdale MD [address] [place] [address] 2[place] [address] [email or web address] PCP - General 05/24/14 09/27/20 Richar Ellis MD [address] [place] [address], [address] [place] [address] [email or web address] PCP - General Internal Medicine 09/28/20 Lauren Lea MD, PhD [address] [place] [address] [email or web address] Primary Oncologist Medical Oncology 06/17/16 Vinayak Reardon DO [address] [place] [address] [email or web address] Primary Oncologist Hematology and Oncology 05/29/18 06/25/22 Je Ragsdale MD [address] [place] [address] [place] [address] [email or web address] Insurance Assigned Provider 03/27/19 09/27/20 Angela Price FNP [address] [place] [address] [email or web address] Nurse Practitioner Medical Oncology 01/19/21 06/21/25 Je Ragsdale MD [address] [place] [address] Dr [address] Zackary MAJORGALLUP INDI[facility] MEDICAL [place] [address] [email or web address] Insurance Assigned Provider 03/27/19 12/01/21 Richar Ellis MD [address] [place] [address], [address] [place] [address] [email or web address] Insurance Assigned Provider 12/01/21 08/30/23 Vinayak Reardon DO 30 [place] [address] [email or web address] Primary Oncologist Hematology and Oncology 06/26/22 Richar Ellis MD [address] [place] [address], [address] [place] [address] [email or web address] Insurance Assigned Provider 02/28/24 documented as of this encounter Additional Source Comments The information contained in this document represents components of the legal health record. It is not the complete legal health record.[facility]
--- OUTSIDE RECORDS SUMMARY | 2025-09-13 15:46 | XMS_ITS | Encounter Summary ---
Author Organization [facility] Address [address] [address] Phone Care Team Providers Care Block Hand Name Role Phone Je Ragsdale MD Primary Care Provider + Lauren Lea MD, PhD Unavailable [phone] Vinayak Reardon DO Unavailable Je Ragsdale MD Unavailable [phone] Richar Ellis MD Primary Care Provider [phone] Angela Price PRODUCT INTRODUCTION MANAGER Unavailable [phone] Je Ragsdale MD Unavailable Richar Ellis MD Unavailable [phone] Vinayak Reardon DO Unavailable [phone] Richar Ellis MD Unavailable [phone] Encounter Details Date Type Department Care Team (Late st Contact Info) Description 04/26/2020 Procedure Pass [facility], Ct Scan - [address] [address] Social History Tobacco Use Types Packs/Day Years [...] Contact Info) Description 06/29/2025 Procedure Pass [address] [address] 06/29/2025 Procedure Pass [address] [address] 09/29/2025 3:15 PM EST Appointment [address] [address] Vinayak Reardon, 30 [place] [address] [email or web address] 10/13/2025 1:30 PM EST Office Visit [facility] Center for Thoracic Oncology, [facility] [place] [facility] [place] [address] [address] Lauren Lea MD, PhD [address] [place] [address] [email or web address] 09/14/2026 11:15 AM EDT Office [facility] [address] [place] [address] [place] [address] Richar Ellis MD [address] [place] [address], [address] [place] [address] [email or web address] documented as of this encounter Visit Diagnoses Not on filedocumented in this encounter Care Teams Block Hand Relationship Specialty Start Date End Date Je Ragsdale MD [address] [place] [address] 2[place] [address] [email or web address] PCP - General 05/24/14 09/27/20 Richar Ellis MD [address] [place] [address], [address] [place] [address] [email or web address] PCP - General Internal Medicine 09/28/20 Lauren Lea MD, PhD [address] [place] [address] [email or web address] Primary Oncologist Medical Oncology 06/17/16 Vinayak Reardon DO [address] [place] [address] [email or web address] Primary Oncologist Hematology and Oncology 05/29/18 06/25/22 Je Ragsdale MD [address] [place] [address] [place] [address] [email or web address] Insurance Assigned Provider 03/27/19 09/27/20 Angela Price FNP [address] [place] [address] [email or web address] Nurse Practitioner Medical Oncology 01/19/21 06/21/25 Je Ragsdale MD [address] [place] [address] Dr [address] Zackary MAJORREHABILITATION HOSPITAL OF [place] [address] [email or web address] Insurance Assigned Provider 03/27/19 12/01/21 Richar Ellis MD [address] [place] [address], [address] [place] [address] [email or web address] Insurance Assigned Provider 12/01/21 08/30/23 Vinayak Reardon DO 30 [place] [address] [email or web address] Primary Oncologist Hematology and Oncology 06/26/22 Richar Ellis MD [address] [place] [address], [address] [place] [address] [email or web address] Insurance Assigned Provider 02/28/24 documented as of this encounter Additional Source Comments The information contained in this document represents components of the legal health record. It is not the complete legal health record.[facility]
--- OUTSIDE RECORDS SUMMARY | 2025-09-13 15:46 | XMS_ITS | Encounter Summary ---
Author Organization [facility] Address [address] [place] [address] Phone Care Team Providers Care Jack Of All Trades Name Role Phone Lauren Lea MD, PhD Unavailable [phone] Richar Ellis MD Primary Care Provider [phone] Angela Price SHOP FITTER Unavailable [phone] Vinayak Reardon DO Unavailable [phone] Richar Ellis MD Unavailable [phone] Encounter Details Date Type Department Care Team (Late st Contact Info) Description 10/13/2023 Procedure Pass [facility], Ct Scan - [address] [address] Social History Tobacco Use Types Packs/Day Years [...] high school, GED, job training, learning the Nepalese language, technical skills, or developing parenting skills)? [...] st Contact Info) Description 06/29/2025 Procedure Pass [facility], Ct Scan - [address] [address] 06/29/2025 Procedure Pass [facility], Ct Scan [address] [address] 09/29/2025 3:15 PM EST Appointment [facility], Wy Scan [facility] [place] 30 [place] [address] Vinayak Reardon DO 30 [place] [address] [email or web address] 10/13/2025 1:30 PM EST Office Visit [facility], [employer] [facility] [place] [facility] [place] 300 [facility] 4th [place] [address] Lauren Lea MD, PhD [address] [place] [address] [email or web address] 09/14/2026 11:15 AM EDT Office Visit [address] [address] Richar Ellis MD [address] [place] [address], [address] [address] [email or web address] documented as of this encounter Visit Diagnoses Not on filedocumented in this encounter Additional Health Concerns Assessment Noted Time PHQ-9 Depression Total Score: 12 023 4:09 PM EDT PHQ-2 Depression Total Score: 3 06/13/20 23 4:09 PM EDT documented as of this encounter Care Teams Jack Of All Trades Relationship Specialty Start Date End Date Richar Ellis MD [address] [place] [address] [email or web address] PCP - General Internal Medicine 09/28/20 Lauren Lea MD, PhD [address] [place] [address] [place] [address] [email or web address] Primary Oncologist Medical Oncology 06/17/16 Angela Price FNP [address] [place] [address] [email or web address] Nurse Practitioner Medical Oncology 01/19/21 06/21/25 Vinayak Reardon DO [address] [place] [address] [email or web address] Primary Oncologist Hematology and Oncology 06/26/22 Richar Ellis MD [address] [place] [address], [address] [place], [place] [phone] [email or web address] Insurance Assigned Provider 02/28/24 documented as of this encounter Additional Source Comments The information contained in this document represents components of the legal health record. It is not the complete legal health record.[facility]
--- OUTSIDE RECORDS SUMMARY | 2025-09-13 15:46 | XMS_ITS | Encounter Summary ---
Author Organization [facility] Address [address] [place] [address] Phone Care Team Providers Care Electronics Commodity Manager Name Role Phone Lauren Lea MD, PhD Unavailable [phone] Richar Ellis MD Primary Care Provider [phone] Angela Price MACHINE HEEL SEAT FITTER Unavailable Vinayak Reardon DO Unavailable [phone] Richar Ellis MD Unavailable [phone] Encounter Details Date Type Department Care Team (Late st Contact Info) Description 10/13/2023 Procedure Pass [facility], [address] [address] Social History Tobacco Use Types Packs/Day Years [...] high school, GED, job training, learning the Egyptian language, technical skills, or developing parenting skills)? [...] st Contact Info) Description 06/29/2025 Procedure Pass [facility], Ct Scan - [address] [address] 06/29/2025 Procedure Pass [facility], Ct Scan [address] [address] 09/29/2025 3:15 PM EST Appointment [facility], [address] [address] Vinayak Reardno DO 30 [place] [address] [email or web address] 10/13/2025 1:30 PM EST Office Visit [facility], [facility] [place] [facility] [place] 300 [facility] 4th [place] [address] Lauren Lea MD, PhD [address] [place] [address] Selena@[email or web address] 09/14/2026 11:15 AM EDT Office Visit [address] [address] Richar Ellis MD [address] [place] [address] [email or web address] documented as of this encounter Visit Diagnoses Not on filedocumented in this encounter Additional Health Concerns Assessment Noted Time PHQ-9 Depression Total Score: 12 023 4:09 PM EDT PHQ-2 Depression Total Score: 3 06/13/20 23 4:09 PM EDT documented as of this encounter Care Teams Electronics Commodity Manager Relationship Specialty Start Date End Date Richar Ellis MD [address] [place] [address] [email or web address] PCP - General Internal Medicine 09/28/20 Lauren Lea MD, PhD [address] [place] [address] [place] [address] [email or web address] Primary Oncologist Medical Oncology 06/17/16 Angela Price FNP [address] [place] [address] [email or web address] Nurse Practitioner Medical Oncology 01/19/21 06/21/25 Vinayak Reardon DO 30 [place] [address] [email or web address] Primary Oncologist Hematology and Oncology 06/26/22 Richar Ellis MD [address] [place] [address], [address] [place] [address] [email or web address] Insurance Assigned Provider 02/28/24 documented as of this encounter Additional Source Comments The information contained in this document represents components of the legal health record. It is not the complete legal health record.[facility]
--- OUTSIDE RECORDS SUMMARY | 2025-09-13 15:46 | XMS_ITS | Encounter Summary ---
Author Organization [facility] Address [address] [address] Phone Care Team Providers Care Truck Driver Teamster Name Role Phone Je Ragsdale MD Primary Care Provider + Lauren Lea MD, PhD Unavailable [phone] Vinayak Reardon DO Unavailable [phone] Je Ragsdale MD Unavailable Richar Ellis MD Primary Care Provider [phone] Angela Price ROBOTIC MACHINE OPERATOR Unavailable [phone] Je Ragsdale MD Unavailable [phone] Richar Ellis MD Unavailable [phone] Vinayak Reardon DO Unavailable [phone] Richar Ellis MD Unavailable [phone] Encounter Details Date Type Department Care Team (Late st Contact Info) Description 05/29/2018 Procedure Pass [facility], Ct Scan - [address] [address] Social History Tobacco Use Types Packs/Day Years [...] st Contact Info) Description 06/29/2025 Procedure Pass [address] [address] 06/29/2025 Procedure Pass [address] [address] 09/29/2025 3:15 PM EST Appointment [address] [address] Vinayak Reardon, 30 [place] [address] [email or web address] 10/13/2025 1:30 PM EST Office Visit [facility], [facility] [place] [facility] [place] [address] [address] Lauren Lea MD, PhD [address] [place] [address] [email or web address] 09/14/2026 11:15 AM EDT Office Visit [facility] Family Medicine [address] [place] [address] [place] [address] Richar Ellis MD [address] [place] [address], [address] [place] [address] [email or web address] documented as of this encounter Visit Diagnoses Not on filedocumented in this encounter Care Teams Truck Driver Teamster Relationship Specialty Start Date End Date Je Ragsdale MD [address] [place] [address] 2[place] [address] [email or web address] PCP - General 05/24/14 09/27/20 Richar Ellis MD [address] [place] [address], [address] [place] [address] [email or web address] PCP - General Internal Medicine 09/28/20 Lauren Lea MD, PhD [address] [place] [address] [email or web address] Primary Oncologist Medical Oncology 06/17/16 Vinayak Reardon DO [address] [place] [address] [email or web address] Primary Oncologist Hematology and Oncology 05/29/18 06/25/22 Je Ragsdale MD [address] [place] [address] [place] [address] [email or web address] Insurance Assigned Provider 03/27/19 09/27/20 Angela Price FNP [address] [place] [address] [email or web address] Nurse Practitioner Medical Oncology 01/19/21 06/21/25 Je Ragsdale MD [address] [place] [address] Dr [address] Zackary [facility] [place] [address] [email or web address] Insurance Assigned Provider 03/27/19 12/01/21 Richar Ellis MD [address] [place] [address], [address] [place] [address] [email or web address] Insurance Assigned Provider 12/01/21 08/30/23 Vinayak Reardon DO 30 [place] [address] [email or web address] Primary Oncologist Hematology and Oncology 06/26/22 Richar Ellis MD [address] [place] [address], [address] [place] [address] [email or web address] Insurance Assigned Provider 02/28/24 documented as of this encounter Additional Source Comments The information contained in this document represents components of the legal health record. It is not the complete legal health record.[facility]
--- OUTSIDE RECORDS SUMMARY | 2025-09-13 15:46 | XMS_ITS | Encounter Summary ---
Author Organization [facility] Address [address] [address] Phone Care Team Providers Care Manual Arts Therapist Name Role Phone Je Ragsdale MD Primary Care Provider + Lauren Lea MD, PhD Unavailable [phone] Vinayak Reardon DO Unavailable [phone] Je Ragsdale MD Unavailable [phone] Richar Ellis MD Primary Care Provider Angela Price LEHR TENDER Unavailable Je Ragsdale MD Unavailable Richar Ellis MD Unavailable [phone] Vinayak Reardon DO Unavailable [phone] Richar Ellis MD Unavailable [phone] Encounter Details Date Type Department Care Team (Late st Contact Info) Description 10/02/2018 Procedure Pass [facility], [address] [address] Social History Tobacco Use Types Packs/Day Years [...] st Contact Info) Description 06/29/2025 Procedure Pass [address] [address] 06/29/2025 Procedure Pass [address] [address] 09/29/2025 3:15 PM EST Appointment [address] [address] Vinayak Reardon DO 30 [place] [address] [email or web address] 10/13/2025 1:30 PM EST Office Visit [facility], [facility] [place] [facility] [place] [address] [address] Lauren Lea MD, PhD [address] [place] [address] [place] [address] [email or web address] 09/14/2026 11:15 AM EDT Office Visit [facility] [place] [facility] [address] [place] [address] [place] [address] Richar Ellis MD 22 [facility], [address] [place] [address] [email or web address] documented as of this encounter Visit Diagnoses Not on filedocumented in this encounter Care Teams Manual Arts Therapist Relationship Specialty Start Date End Date Je Ragsdale MD [address] [place] [address] 2[place] [address] [email or web address] PCP - General 05/24/14 09/27/20 Richar Ellis MD [address] [place] [address], [address] [place] [address] [email or web address] PCP - General Internal Medicine 09/28/20 Lauren Lea MD, PhD [address] [place] [address] [email or web address] Primary Oncologist Medical Oncology 06/17/16 Vinayak Reardon DO [address] [place] [address] [email or web address] Primary Oncologist Hematology and Oncology 05/29/18 06/25/22 Je Ragsdale MD [address] [place] [address] [place] [address] [email or web address] Insurance Assigned Provider 03/27/19 09/27/20 Angela Price FNP [address] [place] [address] [email or web address] Nurse Practitioner Medical Oncology 01/19/21 06/21/25 Je Ragsdale MD [address] [place] [address] Dr [place] [address] [email or web address] Insurance Assigned Provider 03/27/19 12/01/21 Richar Ellis MD [address] [place] [address], [address] [place] [address] [email or web address] Insurance Assigned Provider 12/01/21 08/30/23 Vinayak Reardon DO 30 [place] [address] [email or web address] Primary Oncologist Hematology and Oncology 06/26/22 Richar Ellis MD [address] [place] [address], [address] [place] [address] [email or web address] Insurance Assigned Provider 02/28/24 documented as of this encounter Additional Source Comments The information contained in this document represents components of the legal health record. It is not the complete legal health record.[facility]
--- OUTSIDE RECORDS SUMMARY | 2025-09-13 15:46 | XMS_ITS | Encounter Summary ---
Author Organization [facility] Address [address] [address] Phone Care Team Providers Care Temperature Logging Operator Name Role Phone Je Ragsdale MD Primary Care Provider + Lauren Lea MD, PhD Unavailable Vinayak Reardon DO Unavailable Je Ragsdale MD Unavailable [phone] Richar Ellis MD Primary Care Provider [phone] Angela Price EXTRACORPOREAL TECHNICIAN Unavailable Je Ragsdale MD Unavailable Richar Ellis MD Unavailable [phone] Vinayak Reardon DO Unavailable Richar Ellis MD Unavailable [phone] Encounter Details Date Type Department Care Team (Latest Contact Info) Description 06/28/2019 Transcribe Orders [facility] 30 [place] [address] Vinayak Reardon DO 30 [place] [address] [email or web address] Screening for unspecified condition (Primary Dx) Social History Tobacco Use Types Packs/Day Years [...] st Contact Info) Description 06/29/2025 Procedure Pass [address] [address] 06/29/2025 Procedure Pass [address] [address] 09/29/2025 3:15 PM EST Appointment [address] [address] Vinayak Reardon DO 30 [place] [address] [email or web address] 10/13/2025 1:30 PM EST Office [facility], [facility] [place] [facility] [place] [address] [address] Lauren Lea MD, PhD [address] [place] [address] [place] [address] [email or web address] 09/14/2026 11:15 AM EDT Office Visit [address] [address] Richar Ellis MD 22 [facility], [address] [place] [address] documented as of this encounter Visit Diagnoses Diagnosis Screening for unspecified condition- Primary documented in this encounter Care Teams Temperature Logging Operator Relationship Specialty Start Date End Date Je Ragsdale MD [address] [place] [address] Dr 2nd [place] [address] [email or web address] PCP - General 05/24/14 09/27/20 Richar Ellis MD [address] [place] [address], [address] [place] [address] [email or web address] PCP - General Internal Medicine 09/28/20 Lauren Lea MD, PhD [address] [place] [address] [email or web address] Primary Oncologist Medical Oncology 06/17/16 Vinayak Reardon DO [address] [place] [address] [email or web address] Primary Oncologist Hematology and Oncology 05/29/18 06/25/22 Je Ragsdale MD [address] [place] [address] Dr [address] [place] [address] [email or web address] Insurance Assigned Provider 03/27/19 09/27/20 Angela Price FNP [address] [place] [address] [email or web address] Nurse Practitioner Medical Oncology 01/19/21 06/21/25 Je Ragsdale MD [address] [place] [address] Dr [address] [place] [address] [email or web address] Insurance Assigned Provider 03/27/19 12/01/21 Richar Ellis MD [address] [place] [address], [address] [place] [address] [email or web address] Insurance Assigned Provider 12/01/21 08/30/23 Vinayak Reardon DO [address] [place] [address] [email or web address] Primary Oncologist Hematology and Oncology 06/26/22 Richar Ellis MD [address] [place] [address], [address] [address] [email or web address] Insurance Assigned Provider 02/28/24 documented as of this encounter Additional Source Comments The information contained in this document represents components of the legal health record. It is not the complete legal health record.[facility]
--- OUTSIDE RECORDS SUMMARY | 2025-09-13 15:47 | XMS_ITS | Encounter Summary ---
Author Organization [facility] Address [address] [employer] [facility] [address] [place] [address] Phone Care Team Providers Care College Associate Name Role Phone Lauren Lea MD, PhD Unavailable [phone] AlexysVinayak mccormick DO Unavailable Richar Ellis MD Primary Care Provider [phone] Angela Price W[employer]DER [employer] Unavailable [phone] Je Ragsdale MD Unavailable Richar Ellis MD Unavailable [phone] AlexysVinayak mccormick DO Unavailable [phone] Richar Ellis MD Unavailable [phone] Encounter Details Date Type Department Care Team (Late st Contact Info) Description 01/24/2021 Procedure Pass [facility], [address] [address] Social History Tobacco Use Types Packs/Day Years [...] Contact Info) Description 06/29/2025 Procedure Pass [address] [address] 06/29/2025 Procedure Pass [address] [address] 09/29/2025 3:15 PM EST Appointment [address] [address] Vinayak Reardon, 30 [place] [address] [email or web address] 10/13/2025 1:30 PM EST Office Visit [facility], [facility] [place] [facility] [place] [address] [address] Lauren Lea MD, PhD [address] [place] [address] [email or web address] 09/14/2026 11:15 AM EDT Office Visit [address] [address] Richar Ellis MD [address] [place] [address], [address] [place] [address] documented as of this encounter Visit Diagnoses Not on filedocumented in this encounter Care Teams College Associate Relationship Specialty Start Date End Date Richar Ellis MD [address] [place] [address], [address] [place] [address] PCP - General Internal Medicine 09/28/20 Lauren Lea MD, PhD [address] [place] [address] [email or web address] Primary Oncologist Medical Oncology 06/17/16 Vinayak Reardon DO [address] [place] [address] [email or web address] Primary Oncologist Hematology and Oncology 05/29/18 06/25/22 Angela Prcie, [employer] [address] [place] [address] [email or web address] Nurse Practitioner Medical Oncology 01/19/21 06/21/25 Je Ragsdale MD [address] [place] [address] [place] [address] [email or web address] Insurance Assigned Provider 03/27/19 12/01/21 Richar Ellis MD [address] [place] [address], [address] [place] [address] [email or web address] Insurance Assigned Provider 12/01/21 08/30/23 Vinayak Reardon DO [address] [place] [address] [email or web address] Primary Oncologist Hematology and Oncology 06/26/22 Richar Ellis MD [address] [place] [address], [address] [place] [address] [email or web address] Insurance Assigned Provider 02/28/24 documented as of this encounter Additional Source Comments The information contained in this document represents components of the legal health record. It is not the complete legal health record.[facility]
--- OUTSIDE RECORDS SUMMARY | 2025-09-13 15:47 | XMS_ITS | Encounter Summary ---
Author Organization [facility] Address [address] [address] Phone Care Team Providers Care Prefitter Name Role Phone Je Ragsdale MD Primary Care Provider + Lauren Lea MD, PhD Unavailable [phone] Vinayak Reardon DO Unavailable Je Ragsdale MD Unavailable [phone] Richar Ellis MD Primary Care Provider [phone] OF [address] MANAGER Unavailable Je Ragsdale MD Unavailable Richar Ellis MD Unavailable [phone] Vinayak Reardon DO Unavailable [phone] Richar Ellis MD Unavailable [phone] Encounter Details Date Type Department Care Team (Late st Contact Info) Description 01/26/2018 Procedure Pass [facility], Ct Scan - [address] [address] Social History Tobacco Use Types Packs/Day Years [...] Contact Info) Description 06/29/2025 Procedure Pass [address] [address] 06/29/2025 Procedure Pass [address] [address] 09/29/2025 3:15 PM EST Appointment [address] [address] Vinayak Reardon, 30 [place] [address] [email or web address] 10/13/2025 1:30 PM EST Office Visit [facility] Center for Thoracic Oncology, [facility] [place] [facility] [place] [address] [address] Lauren Lea MD, PhD [address] [place] [address] [email or web address] 09/14/2026 11:15 AM EDT Office Visit [facility] Family Medicine [address] [place] [address] [place] [address] Richar Ellis MD [address] [place] [address], [address] [place] [address] [email or web address] documented as of this encounter Visit Diagnoses Not on filedocumented in this encounter Care Teams Prefitter Relationship Specialty Start Date End Date Je Ragsdale MD [address] [place] [address] 2[place] [address] [email or web address] PCP - General 05/24/14 09/27/20 Richar Ellis MD [address] [place] [address], [address] [place] [address] [email or web address] PCP - General Internal Medicine 09/28/20 Lauren Lea MD, PhD [address] [place] [address] [email or web address] Primary Oncologist Medical Oncology 06/17/16 Vinayak Reardon DO [address] [place] [address] [email or web address] Primary Oncologist Hematology and Oncology 05/29/18 06/25/22 Je Ragsdale MD [address] [place] [address] [place] [address] [email or web address] Insurance Assigned Provider 03/27/19 09/27/20 Angela Price FNP [address] [place] [address] [email or web address] Nurse Practitioner Medical Oncology 01/19/21 06/21/25 Je Ragsdale MD [address] [place] [address] Dr 2nd Zackary [facility]AST[facility] [place] [place] [address] [email or web address] Insurance Assigned Provider 03/27/19 12/01/21 Richar Ellis MD [address] [place] [address], [address] [place] [address] [email or web address] Insurance Assigned Provider 12/01/21 08/30/23 Vinayak Reardon DO 30 [place] [address] [email or web address] Primary Oncologist Hematology and Oncology 06/26/22 Richar Ellis MD [address] [place] [address], [address] [place] [address] [email or web address] Insurance Assigned Provider 02/28/24 documented as of this encounter Additional Source Comments The information contained in this document represents components of the legal health record. It is not the complete legal health record.[facility]
--- OUTSIDE RECORDS SUMMARY | 2025-09-13 15:47 | XMS_ITS | Encounter Summary ---
Author Organization [facility] Address 399 [facility] [address] [place] [address] Phone Care Team Providers Care Art Museum Docent Name Role Phone Lauren Lea MD, PhD Unavailable [phone] Richar Ellis MD Primary Care Provider Angela Price HOT PLATE PLYWOOD PRESS OFFBEARER Unavailable [phone] Richar Ellis MD Unavailable [phone] Vniayak Reardon DO Unavailable [phone] Richar Ellis MD Unavailable [phone] Encounter Details Date Type Department Care Team (Late st Contact Info) Description 12/30/2022 Procedure Pass [facility], [address] [address] Social History Tobacco Use Types Packs/Day Years [...] high school, GED, job training, learning the Belarusian language, technical skills, or developing parenting skills)? [...] st Contact Info) Description 06/29/2025 Procedure Pass [address] [address] 06/29/2025 Procedure Pass [address] [address] 09/29/2025 3:15 PM EST Appointment [address] [address] Vinayak Reardon, 30 [place] [address] [email or web address] 10/13/2025 1:30 PM EST Office Visit [facility] Center for Thoracic Oncology, [facility] [place] [facility] [place] [address] [address] Lauren Lea MD, PhD [address] [place] [address] [email or web address] 09/14/2026 11:15 AM EDT Office Visit [facility] Medicine [address] [place] [address] [place] [address] Richar Ellis MD [address] [place] [address], [address] [place] [address] [email or web address] documented as of this encounter Visit Diagnoses Not on filedocumented in this encounter Additional Health Concerns Assessment Noted Time PHQ-2 Depression Total Score: 0 04/15/20 22 1:05 PM EDT documented as of this encounter Care Teams Art Museum Docent Relationship Specialty Start Date End Date Richar Ellis MD [address] [place] [address], [address] [place] [address] [email or web address] PCP - General Internal Medicine 09/28/20 Lauren Lea MD, PhD [address] [place] [address] [email or web address] Primary Oncologist Medical Oncology 06/17/16 Angela Price, H[employer] PLATE [employer] PRESS OFFBEARER [address] [place] [address] [email or web address] Nurse Practitioner Medical Oncology 01/19/21 06/21/25 Richar Ellis MD [address] [place] [address], [address] [place] [address] [email or web address] Insurance Assigned Provider 12/01/21 08/30/23 Vinayak Reardon DO [address] [place] [address] [email or web address] Primary Oncologist Hematology and Oncology 06/26/22 Richar Ellis MD [address] [place] [address], [address] [place] [address] [email or web address] Insurance Assigned Provider 02/28/24 documented as of this encounter Additional Source Comments The information contained in this document represents components of the legal health record. It is not the complete legal health record.[facility]
--- OUTSIDE RECORDS SUMMARY | 2025-09-13 15:47 | XMS_ITS | Encounter Summary ---
Author Organization [facility] Address [address] [facility] [place] [address] [place] [address] Phone Care Team Providers Care Clinical Account Liaison Name Role Phone Lauren Lea MD, PhD Unavailable [phone] AlexysVinayak mccormick DO Unavailable [phone] Richar Ellis MD Primary Care Provider [phone] Angela Price CLINICAL RESOURCE NURSE Unavailable [phone] Je Ragsdale MD Unavailable Richar Ellis MD Unavailable [phone] Vinayak Reardon DO Unavailable [phone] Richar Ellis MD Unavailable [phone] Encounter Details Date Type Department Care Team (Late st Contact Info) Description 01/24/2021 Procedure Pass [facility], Ct Scan - [address] [address] Social History Tobacco Use Types Packs/Day Years [...] st Contact Info) Description 06/29/2025 Procedure Pass [address] [address] 06/29/2025 Procedure Pass [address] [address] 09/29/2025 3:15 PM EST Appointment [address] [address] Vinayak Reardon, 30 [place] [address] [email or web address] 10/13/2025 1:30 PM EST Office Visit [facility] for [facility], [facility] [place] [facility] [place] [address] [address] Lauren Lea MD, PhD [address] [place] [address] [email or web address] 09/14/2026 11:15 AM EDT Office Visit [address] [address] Richar Ellis MD [address] [place] [address], [address] [address] documented as of this encounter Visit Diagnoses Not on filedocumented in this encounter Care Teams Clinical Account Liaison Relationship Specialty Start Date End Date Rcihar Ellis MD [address] [place] [address], [address] [place] [address] PCP - General Internal Medicine 09/28/20 Lauren Lea MD, PhD [address] [place] [address] [email or web address] Primary Oncologist Medical Oncology 06/17/16 Vinayak Reardon DO [address] [place] [address] [email or web address] Primary Oncologist Hematology and Oncology 05/29/18 06/25/22 Angela Price FNP [address] [place] [address] [email or web address] Nurse Practitioner Medical Oncology 01/19/21 06/21/25 Je Ragsdale MD [address] [place] [address] [place] [address] [email or web address] Insurance Assigned Provider 03/27/19 12/01/21 Richar Ellis MD [address] [place] [address], [address] [place] [address] [email or web address] Insurance Assigned Provider 12/01/21 08/30/23 Vinayak Reardon DO [address] [place] [address] [email or web address] Primary Oncologist Hematology and Oncology 06/26/22 Richar Ellis MD [address] [place] [address], [address] [place] [address] [email or web address] Insurance Assigned Provider 02/28/24 documented as of this encounter Additional Source Comments The information contained in this document represents components of the legal health record. It is not the complete legal health record.[facility]
--- OUTSIDE RECORDS SUMMARY | 2025-09-13 15:47 | XMS_ITS | Encounter Summary ---
Author Organization [facility] Address [address] [place] [address] Phone Care Team Providers Care Machine Stonecutter Name Role Phone Lauren Lea MD, PhD Unavailable [phone] Richar Ellis MD Primary Care Provider Angela Price TAKE OUT WAITER Unavailable [phone] Vinayak Reardon DO Unavailable [phone] Richar Ellis MD Unavailable [phone] Encounter Details Date Type Department Care Team (Late st Contact Info) Description 08/25/2024 Procedure Pass [facility], Ct Scan - [address] [address] Social History Tobacco Use Types Packs/Day Years [...] Procedure Pass [facility], Ct Scan - [address] [address] 06/29/2025 Procedure Pass [facility], Ct Scan [address] [address] 09/29/2025 3:15 PM EST Appointment [facility], [place] Scan [facility] 30 [place] [address] Vinayak Reardon, 30 [place] [address] [email or web address] 10/13/2025 1:30 PM EST Office Visit [facility] for [facility] On[facility], [facility] [place] [facility] [place] 300 [facility] [address] [place] [address] Lauren Lea MD, PhD [address] [place] [address] [email or web address] 09/14/2026 11:15 AM EDT Office Visit [address] [address] Richar Ellis MD [address] [place] [address], [address] [address] [email or web address] documented as of this encounter Visit Diagnoses Not on filedocumented in this encounter Additional Health Concerns Assessment Noted Time PHQ-9 Depression Total Score: 12 023 4:09 PM EDT PHQ-2 Depression Total Score: 3 06/13/20 23 4:09 PM EDT documented as of this encounter Care Teams Machine Stonecutter Relationship Specialty Start Date End Date Richar Ellis MD [address] [place] [place] [address], [address] [address] [email or web address] PCP - General Internal Medicine 09/28/20 Lauren Lea MD, PhD [address] [place] [address] [email or web address] Primary Oncologist Medical Oncology 06/17/16 Angela Price FNP [address] [place] [address] [email or web address] Nurse Practitioner Medical Oncology 01/19/21 06/21/25 Vinayak Reardon DO [address] [place] [address] [email or web address] Primary Oncologist Hematology and Oncology 06/26/22 Richar Ellis MD [address] [place] [place] [address], [address] [place], [place] [address] [email or web address] Insurance Assigned Provider 02/28/24 documented as of this encounter Additional Source Comments The information contained in this document represents components of the legal health record. It is not the complete legal health record.[facility]
--- OUTSIDE RECORDS SUMMARY | 2025-09-13 15:47 | XMS_ITS | Encounter Summary ---
Author Organization [facility] Address [address] [address] Phone Care Team Providers Care Jewel Gauger Name Role Phone Je Ragsdale MD Primary Care Provider + Lauren Lea MD, PhD Unavailable [phone] Vinayak Reardon DO Unavailable Je Ragsdale MD Unavailable [phone] Richar Ellis MD Primary Care Provider Angela Price JUMPBASTING FACING BASTER Unavailable Je Ragsdale MD Unavailable [phone] Richar Ellis MD Unavailable [phone] Vinayak Reardon DO Unavailable [phone] Richar Ellis MD Unavailable [phone] Encounter Details Date Type Department Care Team (Late st Contact Info) Description 01/26/2018 Procedure Pass [facility], Ct Scan - [address] [address] Social History Tobacco Use Types Packs/Day Years [...] st Contact Info) Description 06/29/2025 Procedure Pass [address] [address] 06/29/2025 Procedure Pass [address] [address] 09/29/2025 3:15 PM EST Appointment [address] [address] Vinayak Reardon, 30 [place] [address] [email or web address] 10/13/2025 1:30 PM EST Office Visit [facility], [facility] [place] [facility] [place] [address] [address] Lauren Lea MD, PhD [address] [place] [address] [email or web address] 09/14/2026 11:15 AM EDT Office Visit [employer] [facility] Family Medicine [address] [place] [address] [place] [address] Richar Ellis MD [address] [place] [address], [address] [place] [address] [email or web address] documented as of this encounter Visit Diagnoses Not on filedocumented in this encounter Care Teams Jewel Gauger Relationship Specialty Start Date End Date Je Ragsdale MD [address] [place] [address] 2[place] [address] [email or web address] PCP - General 05/24/14 09/27/20 Richar Ellis MD [address] [place] [address], [address] [place] [address] [email or web address] PCP - General Internal Medicine 09/28/20 Lauren Lea MD, PhD [address] [place] [address] [email or web address] Primary Oncologist Medical Oncology 06/17/16 Vinayak Reardon DO [address] [place] [address] [email or web address] Primary Oncologist Hematology and Oncology 05/29/18 06/25/22 Je Ragsdale MD [address] [place] [address] [place] [address] [email or web address] Insurance Assigned Provider 03/27/19 09/27/20 Angela Price FNP [address] [place] [address] [email or web address] Nurse Practitioner Medical Oncology 01/19/21 06/21/25 Je Ragsdale MD [address] [place] [address] Dr 2nd Zackary [facility] [place] [address] [email or web address] Insurance Assigned Provider 03/27/19 12/01/21 Richar Ellis MD [address] [place] [address], [address] [place] [address] [email or web address] Insurance Assigned Provider 12/01/21 08/30/23 Vinayak Reardon DO 30 [place] [address] [email or web address] Primary Oncologist Hematology and Oncology 06/26/22 Richar Ellis MD [address] [place] [address], [address] [place] [address] [email or web address] Insurance Assigned Provider 02/28/24 documented as of this encounter Additional Source Comments The information contained in this document represents components of the legal health record. It is not the complete legal health record.[facility]
--- OUTSIDE RECORDS SUMMARY | 2025-09-13 15:47 | XMS_ITS | Encounter Summary ---
Author Organization [facility] Address [address] [address] Phone Care Team Providers Care Charter Driver Name Role Phone Je Ragsdale MD Primary Care Provider + Lauren Lea MD, PhD Unavailable [phone] Vinayak Reardon DO Unavailable Je Ragsdale MD Unavailable Richar Ellis MD Primary Care Provider [phone] Angela Price MACHINE SETTER AND REPAIRER Unavailable Je Ragsdale MD Unavailable Richar Ellis MD Unavailable [phone] Vinayak Reardon DO Unavailable [phone] Richar Ellis MD Unavailable [phone] Encounter Details Date Type Department Care Team (Late st Contact Info) Description 01/29/2019 Procedure Pass , [address] [address] Social History Tobacco Use Types Packs/Day Years [...] st Contact Info) Description 06/29/2025 Procedure Pass [address] [address] 06/29/2025 Procedure Pass [address] [address] 09/29/2025 3:15 PM EST Appointment [address] [address] Vinayak Reardon DO 30 [place] [address] [email or web address] 10/13/2025 1:30 PM EST Office Visit [facility] Center for Thoracic Oncology, [facility] [place] [facility] [place] [address] [address] Lauren Lea MD, PhD [address] [place] [address] [place] [address] [email or web address] 09/14/2026 11:15 AM EDT Office Visit [facility] [address] [place] [address] [place] [address] Richar Ellis MD 22 [facility], [address] [place] [address] [email or web address] documented as of this encounter Visit Diagnoses Not on filedocumented in this encounter Care Teams Charter Driver Relationship Specialty Start Date End Date Je Ragsdale MD [address] [place] [address] 2[place] [address] [email or web address] PCP - General 05/24/14 09/27/20 Richar Ellis MD [address] [place] [address], [address] [place] [address] [email or web address] PCP - General Internal Medicine 09/28/20 Lauren Lea MD, PhD [address] [place] [address] [email or web address] Primary Oncologist Medical Oncology 06/17/16 Vinayak Reardon DO [address] [place] [address] [email or web address] Primary Oncologist Hematology and Oncology 05/29/18 06/25/22 Je Ragsdale MD [address] [place] [address] [place] [address] [email or web address] Insurance Assigned Provider 03/27/19 09/27/20 Angela Price FNP [address] [place] [address] [email or web address] Nurse Practitioner Medical Oncology 01/19/21 06/21/25 Je Ragsdale MD [address] [place] [address] [place] [address] [email or web address] Insurance Assigned Provider 03/27/19 12/01/21 Richar Ellis MD [address] [place] [place] [address], [address] [place] [address] [email or web address] Insurance Assigned Provider 12/01/21 08/30/23 Vinayak Reardon DO 30 [place] [address] [email or web address] Primary Oncologist Hematology and Oncology 06/26/22 Richar Ellis MD [address] [place] [place] [address], [address] [place] [address] [email or web address] Insurance Assigned Provider 02/28/24 documented as of this encounter Additional Source Comments The information contained in this document represents components of the legal health record. It is not the complete legal health record.[facility]
--- OUTSIDE RECORDS SUMMARY | 2025-09-13 15:47 | XMS_ITS | Encounter Summary ---
Author Organization [facility] Address [address] [facility] [address] [place] [address] Phone Care Team Providers Care Phlebotomy Support Tech Name Role Phone Lauren Lea MD, PhD Unavailable [phone] Richar Ellis MD Primary Care Provider Angela Price FILM CASTING OPERATOR Unavailable [phone] Vinayak Reardon DO Unavailable Richar Ellis MD Unavailable [phone] Encounter Details Date Type Department Care Team (Late st Contact Info) Description 12/03/2024 Procedure Pass [facility], [address] [address] Social History Tobacco Use Types Packs/Day Years [...] st Contact Info) Description 06/29/2025 Procedure Pass [facility], Ct Scan - [address] [address] 06/29/2025 Procedure Pass [facility], Ct Scan [address] [address] 09/29/2025 3:15 PM EST Appointment [facility], Vt Scan [facility] 30 [place] [address] Vinayak Reardon DO 30 [place] [address] [email or web address] 10/13/2025 1:30 PM EST Office Visit [facility], [facility] [place] [facility] [place] 300 [facility] 4th [place] [address] Lauren Lea MD, PhD [address] [place] [address] [email or web address] 09/14/2026 11:15 AM EDT Office Visit [address] [address] Richar Ellis MD [address] [place] [address], [address] [address] [email or web address] documented as of this encounter Visit Diagnoses Not on filedocumented in this encounter Additional Health Concerns Assessment Noted Time PHQ-9 Depression Total Score: 12 023 4:09 PM EDT PHQ-2 Depression Total Score: 3 06/13/20 23 4:09 PM EDT documented as of this encounter Care Teams Phlebotomy Support Tech Relationship Specialty Start Date End Date Richar Ellis MD [address] [place] [address] [email or web address] PCP - General Internal Medicine 09/28/20 Lauren Lea MD, PhD [address] [place] [address] [place] [address] [email or web address] Primary Oncologist Medical Oncology 06/17/16 Angela Price FNP [address] [place] [address] [email or web address] Nurse Practitioner Medical Oncology 01/19/21 06/21/25 Vinayak Reardon DO [address] [place] [address] [email or web address] Primary Oncologist Hematology and Oncology 06/26/22 Richar Ellis MD [address] [place] [address], [address] [place], [place] [phone] [email or web address] Insurance Assigned Provider 02/28/24 documented as of this encounter Additional Source Comments The information contained in this document represents components of the legal health record. It is not the complete legal health record.[facility]
--- OUTSIDE RECORDS SUMMARY | 2025-09-13 15:47 | XMS_ITS | Encounter Summary ---
Author Organization [facility] Address [address] [facility] [address] [place] [address] Phone Care Team Providers Care Fishing Rod Trimmer Name Role Phone Lauren Lea MD, PhD Unavailable [phone] AlexysVinayak mccormick DO Unavailable Richar Ellis MD Primary Care Provider Angela Price CANNON FIRE DIRECTION SPECIALIST Unavailable [phone] Je Ragsdale MD Unavailable [phone] Richar Ellis MD Unavailable [phone] Vinayak Reardon DO Unavailable [phone] Richar Ellis MD Unavailable [phone] Encounter Details Date Type Department Care Team (Late st Contact Info) Description 01/24/2021 Procedure Pass [facility], Ct Scan - [address] [address] Social History Tobacco Use Types Packs/Day Years [...] st Contact Info) Description 06/29/2025 Procedure Pass [address] [address] 06/29/2025 Procedure Pass [address] [address] 09/29/2025 3:15 PM EST Appointment [address] [address] Vinayak Reardon, 30 [place] [address] [email or web address] 10/13/2025 1:30 PM EST Office Visit [facility], [facility] [place] [facility] [place] [address] [address] Lauren Lea MD, PhD [address] [place] [address] [email or web address] 09/14/2026 11:15 AM EDT Office Visit [address] [address] Richar Ellis MD [address] [place] [address], [address] [address] documented as of this encounter Visit Diagnoses Not on filedocumented in this encounter Care Teams Fishing Rod Trimmer Relationship Specialty Start Date End Date Richar Ellis MD [address] [place] [address], [address] [place] [address] PCP - General Internal Medicine 09/28/20 Lauren Lea MD, PhD [address] [place] [address] [email or web address] Primary Oncologist Medical Oncology 06/17/16 Vinayak Reardon DO [address] [place] [address] [email or web address] Primary Oncologist Hematology and Oncology 05/29/18 06/25/22 Angela Price FNP [address] [place] [address] [email or web address] Nurse Practitioner Medical Oncology 01/19/21 06/21/25 Je Ragsdale MD [address] [place] [address] [place] [address] [email or web address] Insurance Assigned Provider 03/27/19 12/01/21 Richar Ellis MD [address] [place] [address], [address] [place] [address] [email or web address] Insurance Assigned Provider 12/01/21 08/30/23 Vinayak Reardon DO [address] [place] [address] [email or web address] Primary Oncologist Hematology and Oncology 06/26/22 Richar Ellis MD [address] [place] [address], [address] [place] [address] [email or web address] Insurance Assigned Provider 02/28/24 documented as of this encounter Additional Source Comments The information contained in this document represents components of the legal health record. It is not the complete legal health record.[facility]
--- OUTSIDE RECORDS SUMMARY | 2025-09-13 15:47 | XMS_ITS | Encounter Summary ---
Author Organization [facility] Address [address] [place] [address] Phone Care Team Providers Care Human Resources Professional Name Role Phone Lauren Lea MD, PhD Unavailable [phone] Richar Ellis MD Primary Care Provider Angela Price BEREAVEMENT COORDINATOR Unavailable [phone] Richar Ellis MD Unavailable [phone] Vinayak Reardon DO Unavailable [phone] Richar Ellis MD Unavailable [phone] Encounter Details Date Type Department Care Team (Late st Contact Info) Description 12/30/2022 Procedure Pass [facility], Ct Scan - [address] [address] Social History Tobacco Use Types Packs/Day Years [...] high school, GED, job training, learning the Somali language, technical skills, or developing parenting skills)? [...] st Contact Info) Description 06/29/2025 Procedure Pass [address] [address] 06/29/2025 Procedure Pass [address] [address] 09/29/2025 3:15 PM EST Appointment [address] [address] Vinayak Reardon, 30 [place] [address] [email or web address] 10/13/2025 1:30 PM EST Office Visit [facility] for [facility] On[facility], [facility] [place] at [address] [place] [address] Lauren Lea MD, PhD [address] [place] [address] [email or web address] 09/14/2026 11:15 AM EDT Office Visit [address] [place] [address] Richar Ellis MD [address] [place] [address], [address] [place] [address] [email or web address] documented as of this encounter Visit Diagnoses Not on filedocumented in this encounter Additional Health Concerns Assessment Noted Time PHQ-2 Depression Total Score: 0 04/15/20 22 1:05 PM EDT documented as of this encounter Care Teams Human Resources Professional Relationship Specialty Start Date End Date Richar Ellis MD [address] [place] [address], [address] [place] [address] [email or web address] PCP - General Internal Medicine 09/28/20 Lauren Lea MD, PhD [address] [place] [address] [email or web address] Primary Oncologist Medical Oncology 06/17/16 Angela Price, BEREAVEMENT COORDINATOR [address] [place] [address] [email or web address] Nurse Practitioner Medical Oncology 01/19/21 06/21/25 Richar Ellis MD [address] [place] [address], [address] [place] [address] [email or web address] Insurance Assigned Provider 12/01/21 08/30/23 Vinayak Reardon DO [address] [place] [address] [email or web address] Primary Oncologist Hematology and Oncology 06/26/22 Richar Ellis MD [address] [place] [address], [address] [place] [address] [email or web address] Insurance Assigned Provider 02/28/24 documented as of this encounter Additional Source Comments The information contained in this document represents components of the legal health record. It is not the complete legal health record.[facility]
--- OUTSIDE RECORDS SUMMARY | 2025-09-13 15:47 | XMS_ITS | Encounter Summary ---
Author Organization [facility] Address [address] [place] [address] Phone Care Team Providers Care Agronomy Manager Name Role Phone Lauren Lea MD, PhD Unavailable Richar Ellis MD Primary Care Provider [phone] Angela Price WIRE STITCHER MACHINE Unavailable Vinayak Reardon DO Unavailable [phone] Richar Ellis MD Unavailable [phone] Encounter Details Date Type Department Care Team (Late st Contact Info) Description 08/25/2024 Procedure Pass [facility], Ct Scan - [address] [address] Social History Tobacco Use Types Packs/Day Years [...] st Contact Info) Description 06/29/2025 Procedure Pass [facility], Ct Scan - [address] [address] 06/29/2025 Procedure Pass [facility], Ct Scan [address] [address] 09/29/2025 3:15 PM EST Appointment [facility], Nm Scan [facility] 30 [place] [address] Vinayak Reardon, 30 [place] [address] [email or web address] 10/13/2025 1:30 PM EST Office Visit [facility], [facility] [place] [facility] [place] 300 [facility] 4th [place] [address] Lauren Lea MD, PhD [address] [place] [address] [email or web address] 09/14/2026 11:15 AM EDT Office Visit [address] [address] Richar Ellis MD [address] [place] [address], [address] [address] [email or web address] documented as of this encounter Visit Diagnoses Not on filedocumented in this encounter Additional Health Concerns Assessment Noted Time PHQ-9 Depression Total Score: 12 023 4:09 PM EDT PHQ-2 Depression Total Score: 3 06/13/20 23 4:09 PM EDT documented as of this encounter Care Teams Agronomy Manager Relationship Specialty Start Date End Date Richar Ellis MD [address] [place] [address], [address] [address] [email or web address] PCP - General Internal Medicine 09/28/20 Lauren Lea MD, PhD [address] [place] [address] [email or web address] Primary Oncologist Medical Oncology 06/17/16 Angela Price FNP [address] [place] [address] [email or web address] Nurse Practitioner Medical Oncology 01/19/21 06/21/25 Vinayak Reardon DO [address] [place] [address] [email or web address] Primary Oncologist Hematology and Oncology 06/26/22 Richar Ellis MD [address] [place] [address], [address] [place], [place] [phone] [email or web address] Insurance Assigned Provider 02/28/24 documented as of this encounter Additional Source Comments The information contained in this document represents components of the legal health record. It is not the complete legal health record.[facility]
== END 2025-09-13 13:06 | disposition home or self-care (01) ==
PROVIDERS: Physician Assistant; Emergency Provider Emergency Medicine; PCP Internal Medicine
DX: R55 Syncope and collapse (principal); R00.1 Bradycardia, unspecified
CPT/HCPCS: 36415; 80048; 84484; 85025; 93005; 99283; 99284

== ENCOUNTER → 2025-09-13 11:18 | Outpatient (BNV) | payer BC, SELFPAY | PROVIDERS: Emergency Provider Emergency Medicine; PCP Internal Medicine; Visit Provider Internal Medicine Cardiovascular Disease | DX: R00.1 Bradycardia, unspecified (principal) | CPT/HCPCS: 93010 ==